=== PATIENT | male | born 1965 | race African-American/Black ===

== ENCOUNTER 2023-04-28 10:19 | Emergency (ER) | payer BC ==
[2023-04-28] MEDS ORDERED: MECLIZINE HCL 12.5 MG TAB ONE (11:07)
[2023-04-28] MEDS ORDERED: NA CHLORIDE 0.9% 1,000 ML ONE (11:30)
[2023-04-28 11:40] LABS: Absolute Lymphocytes (CBC) 1.5 K/uL (0.7-4.9); Hematocrit 38.8 % (39.6-49.0); Lymphocytes % 20.8 % (15.3-44.8); MCV 82.6 fL (80-100); MPV 11.2 fL (7.6-11.3); RBC Red Blood Cell Count 4.69 M/uL (4.33-5.43)
[2023-04-28 11:52] LABS: Protime INR 0.94
--- NOTE | 2023-04-28 11:52 | RAD REPORT ---
EXAM DESCRIPTION: RAD - Chest Single View - 04/28/2023 11:18 am CLINICAL HISTORY: lightheadedness COMPARISON: CHEST SINGLE VIEW dated 01/23/2011; CHEST SINGLE VIEW dated 10/03/2010; CHEST SINGLE VIEW d ated 01/01/2010 FINDINGS: Lines: None. Lungs: No evidence of edema or pneumonia. Pleural: No significant pleural effusions or pneumothorax. Cardiac: The heart size is within normal limits. Mediastinum: Within normal limits. Bones: No acute fractures. Other: None IMPRESSION: No acute cardiopulmonary disease.
[2023-04-28 11:57] LABS: Specific Gravity 1.023 (1.005-1.030); Urine Bacteria None Seen /HPF (<20); Urine Bilirubin NEGATIVE (Negative); Urine Blood Negative (Negative); Urine Clarity Clear (Clear); Urine Color Light-Yellow (Yellow); Urine Glucose 4+ (Over) (Negative); Urine Mucus Slight /HPF (None Seen); Urine Protein 1+ (Negative); Urine RBC <5 /HPF (None Seen); Urine Urobilinogen Normal (Normal); Urine pH 5.5 (5.0-7.0)
[2023-04-28 12:02] LABS: ALT/SGPT 35 U/L (16-61); AST/SGOT 15 U/L (15-37); Albumin 3.3 g/dL (3.4-5.0); Alkaline Phosphatase 72 U/L (45-117); BUN Blood Urea Nitrogen 26 mg/dL (7-18); Bicarbonate 27 mEq/L (21-32); Bilirubin Total 0.3 mg/dL (0.2-1.0); Glomerular Filtration Rate 48 ml/min (=/>90); Glucose Level 332 mg/dL (74-106); Magnesium 2.2 mg/dL (1.6-2.4); Potassium 4.4 mEq/L (3.5-5.1); Protein, Total 7.4 g/dL (6.4-8.2); Sodium Level 133 mEq/L (136-145); Troponin High Sensitivity 8.4 pg/mL (<58.9)
[2023-04-28 12:10] LABS: Bilirubin Direct < 0.1 mg/dL (0-0.2); Bilirubin Indirect, Calculated ND mg/dL (0.2-0.8)
--- NOTE | 2023-04-28 12:51 | ER ---
Nurse's Notes [facility] Name: Valeriano Lawrence Age: 58 yrs Sex: Male : 1965 Arrival Date: 04/28/2023 Time: 10:19 Bed 16 Private MD: Diagnosis: Dizziness and giddiness Presentation: 04/28 10:41 Chief complaint: Dizziness upon standing at 1730 yesterday, has been constant. hb Coronavirus screen: At this time, the client does not indicate any symptoms associated with coronavirus-19. Ebola Screen: No symptoms or risks identified at this time. Initial Sepsis Screen: Does the patient meet any 2 criteria? No. Patient's initial sepsis screen is negative. Does the patient have a suspected source of infection? No. Patient's initial sepsis screen is negative. Risk Assessment: Do you want to hurt yourself or someone else? Patient reports no desire to harm self or others. Onset of symptoms was April 27, 2023 at 17:30. 10:41 Method Of Arrival: Ambulatory hb 10:41 Acuity: MEGAN 3 hb Historical: - Allergies: 10:41 No Known Allergies; hb - Home Meds: 10:41 imatinib oral [Active]; atorvastatin oral [Active]; valsartan oral [Active]; amlodipine hb oral [Active]; Synjardy oral [Active]; Mounjaro subcutaneous [Active]; pantoprazole oral [Active]; - PMHx: 10:41 Diabetes - NIDDM; Hypertension; Cancer - abdomen, removed; hb - Immunization history:: Adult Immunizations up to date. - Social history:: Smoking status: Patient reports use of chewing tobacco. Screenin:17 [facility] ED Fall Risk Assessment (Adult) History of falling in the last 3 months, nj1 including since admission No falls in past 3 months (0 pts) Confusion or Disorientation No (0 pts) Intoxicated or Sedated No (0 pts) Impaired Gait No (0 pts) Mobility Assist Device Used No (0 pt) Altered Elimination No (0 pt) Score/Fall Risk Level 0 - 2 = Low Risk Oriented to surroundings, Maintained a safe environment, Hourly rounding (assess needs \T\ fall precautionary measures) done. Abuse screen: Denies threats or abuse. Denies injuries from another. Nutritional screening: No deficits noted. Tuberculosis screening: No symptoms or risk factors identified. Assessment: 11:00 General: Appears in no apparent distress. comfortable, Behavior is calm, cooperative, nj1 appropriate for age. Neuro: Level of Consciousness is awake, alert, obeys commands, Oriented to person, place, time, situation, Reports dizziness, since yesterday. Cardiovascular: Patient's skin is warm and dry. Respiratory: Airway is patent Respiratory effort is even, unlabored. 11:00 Pain: Denies pain. nj1 12:17 Reassessment: Patient appears in no apparent distress at this time. Patient and/or nj1 family updated on plan of care and expected duration. Pain level reassessed. Patient is alert, oriented x 3, equal unlabored respirations, skin warm/dry/pink. Pt denies dizziness while laying in the stretcher to which he had said he had during primary assessment. Vital Signs: 10:41 BP 154 / 94; Pulse 82; Resp 16; Temp 98.3(O); Pulse Ox 100% on R/A; Weight 92.53 kg; hb Height 5 ft. 10 in. ; Pain 0/10; 11:02 BP 151 / 87 Supine; Pulse 75; nj1 11:02 BP 132 / 97 Sitting; Pulse 84; nj1 11:02 BP 138 / 97 Standing; Pulse 95; nj1 12:12 BP 162 / 103; Pulse 80; Resp 14; Pulse Ox 99% on R/A; Pain 0/10; nj1 13:00 BP 164 / 109; Pulse 81; Resp 15; Pulse Ox 100% on R/A; Pain 0/10; nj1 10:41 Body Mass Index 29.27 (92.53 kg, 177.8 cm) hb 10:41 Pain Scale: Adult hb 12:12 Pain Scale: Adult nj1 13:00 Pain Scale: Adult nj1 ED Course: 10:21 Patient arrived in ED. ts1 10:22 Janet Johnson FNP-C is PHCP. kb 10:22 Akin Montano DO is Attending Physician. kb 10:41 Triage completed. hb 10:45 Arm band placed on. hb 10:54 Henrietta Youssef, EFRA is Primary Nurse. nj1 11:00 Patient has correct armband on for positive identification. Bed in low position. Call [facility] light in reach. Adult w/ patient. Provided Education on: fall precautions. 11:20 Chest Single View XRAY In Process Unspecified. EDMS 11:29 Inserted saline lock: 20 gauge in left antecubital area, using aseptic technique. Blood nj1 collected. 13:07 No provider procedures requiring assistance completed. IV discontinued, intact, nj1 bleeding controlled. Administered Medications: 11:12 Drug: Meclizine PO 25 mg Route: PO; nj1 11:43 Follow up: Response: No adverse reaction nj1 11:29 Drug: NS 0.9% IV 1000 ml Route: IV; Rate: 1000 ml; Site: left antecubital; nj1 12:30 Follow up: Response: No adverse reaction; IV Status: Completed infusion; IV Intake: nj1 1000ml Medication: 13:00 VIS not applicable for this client. nj1 Intake: 12:30 IV: 1000ml; Total: 1000ml. nj1 Outcome: 12:51 Discharge ordered by . hitesh 13:00 Discharged to home ambulatory, with significant other. nj1 13:00 Condition: stable 13:00 Discharge instructions given to patient, Instructed on discharge instructions, follow up and referral plans. Demonstrated understanding of instructions, follow-up care. 13:08 Patient left the ED. nj1 Signatures: Dispatcher [employer] EDMS Janet Johnson, ENTRY LEVEL SALES CONSULTANT-C ENTRY LEVEL SALES CONSULTANT-Ckb Heidy Rowell RN RN Henrietta Youssef RN RN nj1 Aide [place] PAS PAS ts1 Corrections: (The following items were deleted from the chart) 10:49 10:41 92.53 kg; Height 5 ft. 10 in.; BMI: 29.2; Pain 0/10, Adult; hb hb 12:17 12:12 BP 162 / 103; Pulse 80bpm; Resp 14bpm; Pulse Ox 99% RA; nj1 nj1 12:18 12:17 Reassessment: Patient appears in no apparent distress at this time. Patient nj1 and/or family updated on plan of care and expected duration. Pain level reassessed. Patient is alert, oriented x 3, equal unlabored respirations, skin warm/dry/pink. nj1
--- NOTE | 2023-04-28 12:52 | EDPHYS ---
Physician Documentation [facility] Name: Valeriano Lawrence Age: 58 yrs Sex: Male : 1965 Arrival Date: 04/28/2023 Time: 10:19 Bed 16 Private MD: ED Physician Akin Montano HPI: 04/28 12:53 This 58 yrs old Black Male presents to ER via Ambulatory with complaints of Dizziness. kb 12:53 The patient presents with dizziness, lightheadedness. Onset: The symptoms/episode kb began/occurred yesterday, at 17:30. Context: occurred at home, occurred while the patient was changing positions from sitting to standing. Modifying factors: The symptoms are alleviated by nothing, the symptoms are aggravated by nothing. Associated signs and symptoms: The patient has no apparent associated signs or symptoms. Severity of symptoms: At their worst the symptoms were mild moderate in the emergency department the symptoms are unchanged. Patient's baseline: Neuro: alert and fully oriented, Motor: no deficits, Ambulation: walks without assistance, Speech: normal. The patient has not experienced similar symptoms in the past. The patient has not recently seen a physician. Pt reports he got up from a sitting position yesterday around 1730 and had some dizziness. Reports dizziness upon standing has continued to now so he wanted to get checked out. 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 Historical: - Allergies: 10:41 No Known Allergies; hb - Home Meds: 10:41 imatinib oral [Active]; atorvastatin oral [Active]; valsartan oral [Active]; amlodipine hb oral [Active]; Synjardy oral [Active]; Mounjaro subcutaneous [Active]; pantoprazole oral [Active]; - PMHx: 10:41 Diabetes - NIDDM; Hypertension; Cancer - abdomen, removed; hb - Immunization history:: Adult Immunizations up to date. - Social history:: Smoking status: Patient reports use of chewing tobacco. ROS: 12:52 Constitutional: Negative for fever, chills, and weight loss. kb 12:52 Neuro: Positive for dizziness. 12:52 All other systems are negative. Exam: 11:14 Constitutional: This is a well developed, well nourished patient who is awake, alert, kb and in no acute distress. Head/Face: Normocephalic, atraumatic. Eyes: Pupils equal round and reactive to light, extra-ocular motions intact. Lids and lashes normal. Conjunctiva and sclera are non-icteric and not injected. Cornea within normal limits. Periorbital areas with no swelling, redness, or edema. ENT: Moist Mucous membranes Cardiovascular: Regular rate and rhythm with a normal S1 and S2. No gallops, murmurs, or rubs. No pulse deficits. Respiratory: Respirations even and unlabored. No increased work of breathing. Talking in full sentences Abdomen/GI: Soft, non-tender. No distention Skin: Warm, dry with normal turgor. Normal color. MS/ Extremity: Pulses equal, no cyanosis. Neurovascular intact. Full, normal range of motion. Neuro: Awake and alert, GCS 15, oriented to person, place, time, and situation. Moves all extremities. Normal gait. 11:14 ECG was reviewed by the Attending Physician. Vital Signs: 10:41 BP 154 / 94; Pulse 82; Resp 16; Temp 98.3(O); Pulse Ox 100% on R/A; Weight 92.53 kg; hb Height 5 ft. 10 in. ; Pain 0/10; 11:02 BP 151 / 87 Supine; Pulse 75; nj1 11:02 BP 132 / 97 Sitting; Pulse 84; nj1 11:02 BP 138 / 97 Standing; Pulse 95; nj1 12:12 BP 162 / 103; Pulse 80; Resp 14; Pulse Ox 99% on R/A; Pain 0/10; nj1 13:00 BP 164 / 109; Pulse 81; Resp 15; Pulse Ox 100% on R/A; Pain 0/10; nj1 10:41 Body Mass Index 29.27 (92.53 kg, 177.8 cm) hb 10:41 Pain Scale: Adult hb 12:12 Pain Scale: Adult nj1 13:00 Pain Scale: Adult nj1 MDM: 10:22 Patient medically screened. kb 12:52 Differential diagnosis: cardiac arrhythmia, generalized weakness, hypovolemia, kb idiopathic dizziness, near-syncope, vertigo. Data reviewed: vital signs, nurses notes. Test considered but Not performed: CT: CT head considered, but pt has no neuro deficits. Care significantly affected by the following chronic conditions: Diabetes, Hypertension. Counseling: I had a detailed discussion with the patient and/or guardian regarding: the historical points, exam findings, and any diagnostic results supporting the discharge/admit diagnosis, lab results, radiology results, the need for outpatient follow up, a family practitioner, to return to the emergency department if symptoms worsen or persist or if there are any questions or concerns that arise at home. 04/28 10:28 Order name: Basic Metabolic Panel; Complete Time: 12:14 kb 04/28 10:28 Order name: CBC with Diff; Complete Time: 12:00 kb 04/28 10:28 Order name: Hepatic Function; Complete Time: 12:14 kb 04/28 10:28 Order name: Magnesium; Complete Time: 12:14 kb 04/28 10:28 Order name: Protime (+inr); Complete Time: 12:00 kb 04/28 10:28 Order name: Ptt, Activated; Complete Time: 12:00 kb 04/28 10:28 Order name: Troponin High Sensitivity; Complete Time: 12:14 kb 04/28 10:28 Order name: Urinalysis w/ reflexes; Complete Time: 12:00 kb 04/28 10:28 Order name: Chest Single View XRAY; Complete Time: 12:00 kb 04/28 10:28 Order name: EKG; Complete Time: 10:29 kb 04/28 10:28 Order name: Cardiac monitoring; Complete Time: 11:15 kb 04/28 10:28 Order name: EKG - Nurse/Tech; Complete Time: 11:15 kb 04/28 10:28 Order name: IV Saline Lock; Complete Time: 11:43 kb 04/28 10:28 Order name: Labs collected and sent; Complete Time: 11:43 kb 04/28 10:28 Order name: NPO; Complete Time: 11:15 kb 04/28 10:28 Order name: O2 Per Protocol; Complete Time: 11:15 kb 04/28 10:28 Order name: O2 Sat Monitoring; Complete Time: 11:15 kb 04/28 10:28 Order name: Orthostatics; Complete Time: 11:15 kb EC:14 Rate is 74 beats/min. Rhythm is regular. QRS [place] is Normal. NE interval is normal at kb 140 msec. QRS interval is normal at 88 msec. QT interval is normal at 441 msec. Administered Medications: 11:12 Drug: Meclizine PO 25 mg Route: PO; nj1 11:43 Follow up: Response: No adverse reaction nj1 11:29 Drug: NS 0.9% IV 1000 ml Route: IV; Rate: 1000 ml; Site: left antecubital; nj1 12:30 Follow up: Response: No adverse reaction; IV Status: Completed infusion; IV Intake: nj1 1000ml Disposition: 13:39 Co-signature as Attending Physician, Akin Montano DO I was immediately available on-site ms3 in the Emergency Department for consultation in the care of the patient. Disposition Summary: 04/28/23 12:51 Discharge Ordered Location: Home kb Condition: Stable kb Diagnosis - Dizziness and giddiness kb Followup: kb - With: Emergency Department - When: As needed - Reason: Worsening of condition Followup: kb - With: Private Physician - When: 2 - 3 days - Reason: Recheck today's complaints, Continuance of care, Re-evaluation by your physician Discharge Instructions: - Discharge Summary Sheet kb - Dehydration, Adult, [id number] kb - Dizziness, [id number] kb Forms: - Medication Reconciliation Form kb - Thank You Letter kb - Antibiotic Education kb - Prescription Opioid Use kb - Patient Portal Instructions kb Signatures: Dispatcher [employer] Janet Hooker, CORE MEASURES ABSTRACTOR-C CORE MEASURES ABSTRACTOR-[place] Heidy Rowell, RN EFRA Akin Montano DO DO ms3 Henrietta Youssef, RN RN nj1
[2023-04-28 13:18] VITALS: TEMP 98.3
[2023-04-28 13:35] VITALS: BP 164/109; O2SAT 100
--- NOTE | 2023-04-29 18:53 | EKG ---
Test Date: 2023-04-28 Test Time: 11:09:41 [employer]: ADRYAN MEASUREMENT RESULTS: Intervals: Rate: 74 MD: 140 QRSD: 88 QT: 398 QTc: 441 [place]: P: 65 MD: 140 QRS: 43 T: 15 INTERPRETIVE STATEMENTS: Normal sinus rhythm Normal ECG Compared to ECG 06/26/2011 13:01:11 Sinus bradycardia no longer present Ventricular premature complex(es) no longer present Left ventricular hypertrophy no longer present Electronically Signed On 04-29-23 18:48:47 CDT by Claudy Perez
== END 2023-04-28 13:08 | disposition home or self-care (01) ==
LOC: ER 10:19
DX: R42 Dizziness and giddiness (principal); E11.9 Type 2 diabetes mellitus without complications; I10 Essential (primary) hypertension; F17.220 Nicotine dependence, chewing tobacco, uncomplicated
CPT/HCPCS: 93005; 85025; 81001; 80048; 36415; 83735; 85610; 80076; 85730; 84484; 71045; J8597; J7030; 96360; 99284

== ENCOUNTER 2023-05-03 15:54 | Inpatient (IN) | payer BC ==
--- OUTSIDE RECORDS SUMMARY | 2023-05-03 16:04 | XMS REPORT | Continuity of Care Document ---
:1965 Author Organization [facility] t Address [address] [facility]. [address] [place] [address] Care Team Providers Name Role Phone PCP, PATIENT DOES NOT HAVE A Primary Care Physician UnavailSHARONDA June Attending Clinician Unavailable Nurse, [facility] Attending Clinician Unavailable Sharonda Knowles MD Attending Clinician UNKNOWN, ATTENDING Attending Clinician Unavailable Doctor Unassigned, [place] Attending Clinician Unavailable Mesha Batista Attending Clinician MESHA PICKETT Attending Clinician Unavailable Unknown, Attending Attending Clinician Unavailable DIMAS HUYNH Attending Clinician Unavailable Dimas Huynh PA-C Attending Clinician Kerry Woods Attending Clinician Genie Arita Attending Clinician GENIE MARIE Attending Clinician Unavailable Sheeba Vail Attending Clinician SHEEBA VAIL Attending Clinician Unavailable Everton Ott V Attending Clinician Unavailable Jn Sharpe Attending Clinician Unavailable Anuradha Elder Attending Clinician SHEEBA VAIL Admitting Clinician Unavailable Sheeba Vail Admitting Clinician Jn Sharpe Admitting Clinician Unavailable Payers Payer Name Policy Type Policy Number Effective Date Expiration Date S jama [employer] [place] - [id number] 2022 00:00:00 OUT OF STATE Problems Condition Condition Condition Status Onset Resolution Last Treating Co mments Source Name Details Category Date Date Treatment Clinician Date UNK UNK Diagnosis Active 2019-092020-09-26 Mem oria Active 11-15 08:20:00 l 09/14/2020 00:00: Daljit adamson 00 [facility] C49.A2 C49.A2 Diagnosis Active 2019-092020-09-29 Me moria Active 11-15 06:34:00 l 09/14/2020 00:00: Daljit adamson 00 [facility] 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 Active Problem 01/31/2022 [facility] No known No known Disease Unive rs active active ity of problems problems [facility] [place] Degenerati Degenerat Problem Active 2020-10-09 Memoria on of ion of 00:27:29 l cervical cervical Daljit n interverte interverte bral disc bral disc (disorder) (disorder) [facility] Diabetes Diabetes Problem Active 2020-10-09 Memoria mellitus mellitus 00:27:29 l (disorder) (disorder) He rmann Active Problem [facility]09[facility]2020 [facility] Hyperlipid Hyperlipi Problem Active 2020-10-09 Memoria emia demia 00:27:29 l (disorder) (disorder) He rmann Active Problem [facility]/09/2020 [facility] Hypertensi Hypertens Problem Active 2020-10-09 Memoria ve demario 00:27:29 l disorder, disorder, Herm sriram systemic systemic arterial arterial (disorder) (disorder) Active [facility]09[facility] Obesity Obesity Problem Active 2020-10-09 M emoria (disorder) (disorder) 00:27:29 l Active [place] Problem [facility]/09/2020 [facility] Shoulder Shoulder Problem Active 2020-10-09 Memoria pain pain 00:27:29 l (finding) (finding) Herm sriram Active Problem 10/09/2020 Medical [facility] Sinusitis Sinusitis Problem Active 2020-10-09 Memoria (disorder) (disorder) 00:27:29 l Active [place] Problem 10/09/2020 [facility] Malignant Malignant Problem Active 2020-10-09 Memoria neoplastic neoplastic 00:27:29 l disease disease [place] (disorder) (disorder) Active Problem 10/09/2020 stomach [facility] prison prison Problem Active 2022-01-31 Memoria current current 04:10:01 l use of use of [place] insulin insulin Active Problem 01/31/2022 [facility] Essential Essential Diagnosis Active 2022-01-31 Memoria (primary) (primary) 04:10:01 l hypertensi hypertensi He rmann on on Active Diagnosis 01/31/2022 [facility] Type 2 Type 2 Problem Active 2022-01-31 Mem oria diabetes diabetes 04:10:01 l mellitus mellitus Daljit n with with hyperglyce hyperglyce escobar escobar Active Problem 01/31/2022 [facility] Vitamin B Vitamin B Problem Active 2022-01-31 Memoria 12 12 04:10:01 l deficiency deficiency He rmann Active Problem 01/31/2022 [facility] Iron Iron Problem Active 2022-01-31 Memor ia deficiency deficiency 04:10:01 l anemia, anemia, Mukund unspecifie unspecifie d iron d iron deficiency deficiency anemia anemia type type Active Problem 01/31/2022 [facility] Erectile Erectile Problem Active 2022-01-31 Memoria dysfunctio dysfunctio 04:10:01 l n, n, [place] unspecifie unspecifie d erectile d erectile dysfunctio dysfunctio n type n type Active Problem 01/31/2022 [facility] Mixed Mixed Problem Active 2022-01-31 Ketan estee hyperlipid hyperlipid 04:10:01 l emia emia [place] Active Problem 01/31/2022 [facility] Screening Screening Problem Active 2022-01-31 Memoria for colon for colon 04:10:01 l cancer cancer [place] Active Problem 01/31/2022 [facility] Screening Screening Problem Active 2022-01-31 Memoria for for 04:10:01 l prostate prostate Daljit n cancer cancer Active Problem 01/31/2022 [facility] Encounter Encounter Diagnosis Active 2020-12-11 Memoria for for 05:10:25 l screening screening Herm sriram for other for other disorder disorder Active Diagnosis 12/11/2020 [facility] Gastric Gastric Diagnosis Active 2020-03-29 Memoria mass mass 04:10:34 l Active [place] Diagnosis 03/29/2020 [facility] COVID-19 COVID-19 Diagnosis Active 2020-03-29 Memoria Active 04:10:34 l Diagnosis Mukund 03/29/2020 [facility] Gastrointe Diagnosis Active 2020-02-24 Memoria stinal Gastrointe 04:10:41 l hemorrhage stinal Daljit n , hemorrhage unspecifie , d unspecifie gastrointe d stinal gastrointe hemorrhage stinal type hemorrhage type Active Diagnosis 02/24/2020 [facility] Need for Need for Diagnosis Active 2020-12-11 Memoria hepatitis hepatitis 05:10:25 l C C [place] screening screening test test Active Diagnosis 12/11/2020 [facility] COVID-19 COVID-19 Diagnosis Active 2020-12-11 Memoria vaccine vaccine 05:10:25 l administer administer He rmann ed ed Active Diagnosis 12/11/2020 [facility] GASTROINTE GASTROINT Diagnosis Active 2020-09-29 Memoria STINAL ESTINAL 06:34:00 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 N.K.D.A. Active Info Not Ketan estee Available 2-21 l 00:00: Mukund 00 No Known DA Active U 2020-0 [facility] Allergie 6-23 Clear s 00:00: [place] 00 [facility] No Known DA Active U 2020-0 [facility] Allergie 6- Clear s 00:00: [place] 00 [facility] No Known DA Active U 2020-0 [facility] Allergie - Clear s 00:00: [place] 00 [facility] No Known DA Active U 2020-0 [facility] Allergie 02-24 Clear s 00:00: [place] 00 [facility] NO KNOWN Drug Active Univers ALLERGIE Class ity of S [facility] No Known No Known Active Memori a Medicati Medicati l on on [place] Allergie Allergie s s Social History Social Habit Start Date Stop Date Quantity Comments Source Gender identity [facility] Sexual orientation Univer sity [facility] History of tobacco Cigar Smoker Univ ersity of use [facility] History of Social 2023-04-28 2023-04-28 Univers ity of function 00:00:00 00:00:00 [facility] [place] Exposure to 2022-09-22 2022-10-02 Not sure University SARS-CoV-2 (event) 00:00:00 17:43:00 [facility] [place] Tobacco use and 2022-10-02 2022-10-02 Former smokeless Uni versity of exposure 00:00:00 00:00:00 tobacco user [facility] Social History 2020-09-26 2020-09-26 [facility] Edd lester 15:55:34 15:55:34 Sex [birth year] Univers y of 00:00:00 00:00:00 [facility] [place] Smoking Status Start Date Stop Date Source Unknown if ever smoked [facility] Occasional tobacco smoker 2022-10-02 00:00:00 Un iversity [facility] Medications Ordered Filled Start Stop Current Ordering Indication Dosage Frequency Signature Comments Components Source Medication Medication Date Date Medication? Clinician (SIG) Name Name metFORMIN Yes 500mg Take 500 Uni vers 500 mg 1-03 mg by ity of tablet 18:17: mouth in [address] Medical morning Branch and 500 mg in the evening. Take with meals. metFORMIN Yes 500mg Take 500 Uni vers 500 mg 1-03 mg by ity of tablet 18:17: mouth in [address] Medical morning Branch and 500 mg in the evening. Take with meals. metFORMIN 2023-0 Yes 500mg Take 500 Uni vers 500 mg 1-03 mg by ity of tablet 18:17: mouth in [place] [address] the Medical morning Branch and 500 mg in the evening. Take with meals. metFORMIN 2023-0 Yes 500mg Take 500 Uni vers 500 mg 1-03 mg by ity of tablet 18:17: mouth in [place] [address] the [facility] morning Branch and 500 mg in the evening. Take with meals. metFORMIN 2023-0 Yes 500mg Take 500 Uni vers 500 mg 1-03 mg by ity of tablet 18:17: mouth in [place] [address] the Medical morning Branch and 500 mg in the evening. Take with meals. diclofenac 2023-0 Yes [id number] Apply to Univers 3 % gel 1-03 area(s) 2 ity of 00:00: (two) [place] 00 times Medical daily. Branch diclofenac 2023-0 Yes [id number] Apply to Univers 3 % gel 1-03 area(s) 2 ity of 00:00: (two) [place] 00 times Medical daily. Branch diclofenac 2023-0 Yes [id number] Apply to Univers 3 % gel 1-03 area(s) 2 ity of 00:00: (two) [place] 00 times Medical daily. Branch diclofenac 2023-0 Yes [id number] Apply to Univers 3 % gel 1-03 area(s) 2 ity of 00:00: (two) [place] 00 times Medical daily. Branch diclofenac 2023-0 Yes [id number] Apply to Univers 3 % gel 1-03 area(s) 2 ity of 00:00: (two) [place] 00 times Medical daily. Branch traMADoL 50 2022-0 2022- No [id number] 50mg Take 1 Uni vers mg tablet 10-02 tablet by ity of 00:00: 05:59 mouth [place] 00 :00 every 6 Medical (six) Branch hours as needed for Pain (scale 7-10) or Pain (scale 4-6) for up to 7 days. Indication s: acute pain traMADoL 50 2023-0 2022- No [id number] 50mg Take 1 Uni vers mg tablet 10-02 tablet by ity of 00:00: 05:59 mouth [place] 00 :00 every 6 Medical (six) Branch hours as needed for Pain (scale 7-10) or Pain (scale 4-6) for up to 7 days. Indication s: acute pain traMADoL 50 2022- No [id number] 50mg Take 1 Uni vers mg tablet 10-02 tablet by ity of 00:00: 05:59 mouth [place] 00 :00 every 6 Medical (six) Branch hours as needed for Pain (scale 7-10) or Pain (scale 4-6) for up to 7 days. Indication s: acute pain glimepiride 2021-09 Yes 4mg Take 4 mg U nivers 4 mg tablet 0-28 by mouth ity of 00:00: in the [place] 00 morning Medical and 4 mg Branch in the evening. Take with meals. glimepiride 2021-09 Yes 4mg Take 4 mg U nivers 4 mg tablet 0-28 by mouth ity of 00:00: in the [place] 00 morning Medical and 4 mg Branch in the evening. Take with meals. glimepiride 2021-09 Yes 4mg Take 4 mg U nivers 4 mg tablet 0-28 by mouth ity of 00:00: in the [place] morning Medical and 4 mg Branch in the evening. Take with meals. glimepiride 2021-09 Yes 4mg Take 4 mg U nivers 4 mg tablet 0-28 by mouth ity of 00:00: in the [place] morning Medical and 4 mg Branch in the evening. Take with meals. glimepiride 2021-09 Yes 4mg Take 4 mg U nivers 4 mg tablet 0-28 by mouth ity of 00:00: in the [place] morning Medical and 4 mg Branch in the evening. Take with meals. Metoprolol Yes KHURSHEED 1 tablet Memoria Tartrate 5-04 [place] with food l 04:10: Atorvastati Yes KHURSHEED 1 tablet Memoria n Calcium 5-04 [place] l 04:10: Atorvastati Yes KHURSHEED 1 tablet Memoria n Calcium 5-04 [place] l 04:10: Metoprolol Yes KHURSHEED 1 tablet Memoria Tartrate 5-04 [place] with food l 04:10: Metoprolol Yes KHURSHEED 1 tablet Memoria Tartrate 5-04 [place] with food l 04:10: Atorvastati Yes KHURSHEED 1 tablet Memoria n [facility] 5-04 [facility] 04:10: cefTRIAXone 2021- No [id number] 1000mg Univers (ROCEPHIN) 12-24 ity of injection 20:45: 19:54 [place] 1,000 mg 00 :00 Medical Branch cefTRIAXone 2021- No [id number] 1000mg 1,000 mg, Univers (ROCEPHIN) 12-24 Intramuscu it y of injection 20:45: 19:54 [place], ONCE, [place] 1,000 mg 00 :00 1 dose, On Medic al Sun Branch 12/24/21 at 1545, CHUCK
Re ason for Anti-Infec tive: Documented Infection< br>Documen misael Infection Site: Skin / Soft Tissue
Duration of Therapy: Other (see Comments) sulfamethox Yes 1{tbl} Take 1 Univers azole-trime 3-27 tablet by ity of thoprim 00:00: mouth 2 [place] (BACTRIM 00 (two) Medical DS) 800-160 times Branch mg per daily. tablet ibuprofen Yes [id number] 600mg Take 1 Univers 600 mg 3-27 tablet by ity of tablet 00:00: mouth [place] 00 every 6 Medical (six) Branch hours as needed for Pain (scale 4-6). sulfamethox Yes 1{tbl} Take 1 Univers azole-trime 3-27 tablet by ity of thoprim 00:00: mouth 2 [place] (BACTRIM 00 (two) Medical DS) 800-160 times Branch mg per daily. tablet ibuprofen Yes [id number] 600mg Take 1 Univers 600 mg 3-27 tablet by ity of tablet 00:00: mouth [place] 00 every 6 Medical (six) Branch hours as needed for Pain (scale 4-6). sulfamethox Yes 1{tbl} Take 1 Univers azole-trime 3-27 tablet by ity of thoprim 00:00: mouth 2 [place] (BACTRIM 00 (two) Medical DS) 800-160 times Branch mg per daily. tablet ibuprofen 2021-0 Yes [id number] 600mg Take 1 Univers 600 mg 3-27 tablet by ity of tablet 00:00: mouth [place] 00 every 6 Medical (six) Branch hours as needed for Pain (scale 4-6). sulfamethox 202-0 Yes [id number] 1{tbl} Take 1 Univers azole-trime 3-27 tablet by ity of thoprim 00:00: mouth 2 [place] (BACTRIM 00 (two) Medical DS) 800-160 times Branch mg per daily. tablet ibuprofen 2021-0 Yes [id number] 600mg Take 1 Univers 600 mg 3-27 tablet by ity of tablet 00:00: mouth [place] 00 every 6 Medical (six) Branch hours as needed for Pain (scale 4-6). sulfamethox 202-0 Yes [id number] 1{tbl} Take 1 Univers azole-trime 3-27 tablet by ity of thoprim 00:00: mouth 2 [place] (BACTRIM 00 (two) Medical DS) 800-160 times Branch mg per daily. tablet ibuprofen 2021-0 Yes [id number] 600mg Take 1 Univers 600 mg 3-27 tablet by ity of tablet 00:00: mouth [place] 00 every 6 Medical (six) Branch hours as needed for Pain (scale 4-6). sulfamethox 2021-0 Yes [id number] 1{tbl} Take 1 Univers azole-trime 3-27 tablet by ity of thoprim 00:00: mouth 2 [place] (BACTRIM 00 (two) Medical DS) 800-160 times Branch mg per daily. tablet ibuprofen 2021-0 Yes [id number] 600mg Take 1 Univers 600 mg 3-27 tablet by ity of tablet 00:00: mouth [place] 00 every 6 Medical (six) Branch hours as needed for Pain (scale 4-6). mupirocin 2 2021-0 Yes Apply to Univers % ointment 3-22 area(s) 3 ity of 00:00: (three) [place] 00 times Medical daily. Branch mupirocin 2 2021-0 Yes Apply to Univers % ointment 3-22 area(s) 3 ity of 00:00: (three) [place] 00 times Medical daily. Branch mupirocin 2 2021-0 Yes Apply to Univers % ointment 3-22 area(s) 3 ity of 00:00: (three) [place] 00 times Medical daily. Branch mupirocin 2 2021-0 Yes Apply to Univers % ointment 3-22 area(s) 3 ity of 00:00: (three) [place] 00 times Medical daily. Branch mupirocin 2 2021-0 Yes Apply to Univers % ointment 3-22 area(s) 3 ity of 00:00: (three) [place] 00 times Medical daily. Branch mupirocin 2 2021-0 Yes Apply to Univers % ointment 3-22 area(s) 3 ity of 00:00: (three) [place] 00 times Medical daily. Branch mupirocin 2 2021-0 Yes Apply to Univers % ointment 3-22 area(s) 3 ity of 00:00: (three) [place] 00 times Medical daily. Branch mupirocin 2 2021-0 Yes Apply to Univers % ointment 3-22 area(s) 3 ity of 00:00: (three) [place] 00 times Medical daily. Branch amoxicillin 2021- No [id number] 1{tbl} Take 1 Univers -clavulanat 3-22 03-30 tablet by it y of e 00:00: 04:59 mouth 2 [place] (AUGMENTIN) 00 :00 (two) Medical 875-125 mg times Branch per tablet daily for 7 days. amoxicillin 2021- No [id number] 1{tbl} Take 1 Univers -clavulanat 3-22 03-30 tablet by it y of e 00:00: 04:59 mouth 2 [place] (AUGMENTIN) 00 :00 (two) Medical 875-125 mg times Branch per tablet daily for 7 days. amoxicillin 2021- No [id number] 1{tbl} Take 1 Univers -clavulanat 3-22 03-27 tablet by it y of e 00:00: 00:00 mouth 2 [place] (AUGMENTIN) 00 :00 (two) Medical 875-125 mg times Branch per tablet daily for 7 days. Valsartan-H Yes KHURSHEED 1 tablet Memoria ydrochlorot 2-22 [place] l hiazide 05:10: Mukund 36 Vitamin Yes KHURSHEED as Memor ia B-12 - [place] directed l 05:10: Mukund 36 Jardiance Yes KHURSHEED 1 tablet Memoria - [place] l 05:10: Mukund 36 Amlodipine Yes KHURSHEED 1 tablet Memoria Besylate - [place] l 05:10: Mukund 36 Trulicity Yes KHURSHEED as Mem oria - [place] directed l 05:10: Mukund 36 Cyclobenzap Yes KHURSHEED 1 tablet Memoria rine HCl 11-21 [place] l 05:10: Mukund 36 Levemir Yes KHURSHEED 50 units M emoria Flexpen 11-21 [facility] 05:10: Mukund 36 Gleevec Yes KHURSHEED 1 tablet M emoria 11-21 [facility] 05:10: Mukund 36 Glimepiride Yes KHURSHEED 1 tablet Memoria 11-21 [place] with l 05:10: breakfast Mukund 36 or the first main meal of the day Metformin Yes KHURSHEED 1 tablet Memoria HCl 11-21 [facility] with a l 05:10: meal Mukund 36 HydrALAZINE Yes KHURSHEED 1 tablet Memoria HCl 11-21 [facility] with food l 05:10: Mukund Dill Valsartan-H Yes KHURSHEED 1 tablet Memoria ydrochlorot 11-21 [facility] hiazide 05:10: Mukund 36 Jardiance Yes KHURSHEED 1 tablet Memoria - [place] l 05:10: Mukund 36 Amlodipine Yes KHURSHEED 1 tablet Memoria Besylate - [place] l 05:10: Mukund 36 Trulicity Yes KHURSHEED as Mem oria - [place] directed l 05:10: Mukund 36 Cyclobenzap Yes KHURSHEED 1 tablet Memoria rine HCl - [place] l 05:10: Mukund 36 Levemir Yes KHURSHEED 50 units M emoria Flexpen - [place] l 05:10: Mukund 36 Vitamin Yes KHURSHEED as Memor ia B-12 11-21 [place] directed l 05:10: Mukund 36 Gleevec Yes KHURSHEED 1 tablet M emoria 11-21 [place] l 05:10: Mukund 36 HydrALAZINE Yes KHURSHEED 1 tablet Memoria HCl 11-21 [facility] with food l 05:10: Mukund 36 Glimepiride Yes KHURSHEED 1 tablet Memoria 11-21 [place] with l 05:10: breakfast Mukund Dill or the first main meal of the day Metformin Yes KHURSHEED 1 tablet Memoria HCl 11-21 [facility] with a l 05:10: meal Mukund 36 Valsartan-H Yes KHURSHEED 1 tablet Memoria ydrochlorot 11-21 [facility] l hiazide 05:10: Mukund 36 Vitamin Yes KHURSHEED as Memor ia B-12 11-21 [facility] directed l 05:10: Mukund 36 Jardiance Yes KHURSHEED 1 tablet Memoria 11-21 [facility] l 05:10: Mukund 36 Amlodipine Yes KHURSHEED 1 tablet Memoria Besylate 11-21 [facility] 05:10: Mukund 36 Trulicity Yes KHURSHEED as Mem oria 11-21 [place] directed l 05:10: Mukund 36 Cyclobenzap Yes KHURSHEED 1 tablet Memoria rine HCl 11-21 [facility] 05:10: Mukund 36 Levemir Yes KHURSHEED 50 units M emoria Flexpen 11-21 [place] l 05:10: Mukund 36 Gleevec Yes KHURSHEED 1 tablet M emoria - [place] l 05:10: Mukund 36 Glimepiride Yes KHURSHEED 1 tablet Memoria 11-21 [place] with l 05:10: breakfast Mukund Dill or the first main meal of the day Metformin 0 Yes KHURSHEED 1 tablet Memoria HCl 2-22 [place] with a l 05:10: meal Mukund HydrALAZINE 0 Yes KHURSHEED 1 tablet Memoria HCl 2-22 [place] with food l 05:10: Mukund Amlodipine 0 Yes KHURSHEED 1 tablet Memoria Besylate 1-29 [place] l 05:25: Amlodipine 0 Yes KHURSHEED 1 tablet Memoria Besylate 1-29 [place] l 05:25: Mukund Amlodipine 0 Yes KHURSHEED 1 tablet Memoria Besylate 1-29 [place] l 05:25: Mukund Amlodipine 0 Yes KHURSHEED 1 tablet Memoria Besylate -29 [place] l 05:25: Mukund HydrALAZINE 0 Yes KHURSHEED 1 tablet Memoria HCl 3-14 [place] with food l 05:10: Mukund Valsartan-H 0 Yes KHURSHEED 1 tablet Memoria ydrochlorot 3-14 [place] l hiazide 05:10: Mukund Jardiance 0 Yes KHURSHEED 1 tablet Memoria 3-14 [place] l 05:10: Mukund Amlodipine 0 Yes KHURSHEED 1 tablet Memoria Besylate 3-14 [place] l 05:10: Mukund Trulicity 0 Yes KHURSHEED as Mem oria 3-14 [place] directed l 05:10: Mukund Atorvastati 0 Yes KHURSHEED 1 tablet Memoria n Calcium 3-14 [place] l 05:10: Mukund Cyclobenzap 0 Yes KHURSHEED 1 tablet Memoria rine HCl 3-14 [place] l 05:10: Mukund Levemir 0 Yes KHURSHEED 50 units M emoria Flexpen 3-14 [place] l 05:10: Mukund Metoprolol 0 Yes KHURSHEED 1 tablet Memoria Tartrate 3-14 [place] with food l 05:10: Gleevec Yes KHURSHEED 1 tablet M emoria 3-14 [place] l 05:10: Vitamin Yes KHURSHEED as Memor ia B-12 3-14 [place] directed l 05:10: HydrALAZINE Yes KHURSHEED 1 tablet Memoria HCl 3-14 [place] with food l 05:10: Glimepiride Yes KHURSHEED 1 tablet Memoria 3-14 [place] with l 05:10: breakfast or the first main meal of the day Metformin Yes KHURSHEED 1 tablet Memoria HCl 3-14 [place] with a l 05:10: meal HydrALAZINE Yes KHURSHEED 1 tablet Memoria HCl 3-14 [place] with food l 05:10: HydrALAZINE Yes KHURSHEED 1 tablet Memoria HCl 3-14 [place] with food l 05:10: Pls bring No Pls bring Mem oria Pt's 1- Pt's l JARDIANCE & 23:00: JARDIANCE H ermann TRULICITY 00 & to Pharmacy [facility] for label to Pharmacy for label, *reminder, Drug form: MISC, Route: MISC, BID, 09/30/20 17:00:00 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, Duration: 30 day, Stop date: 10/30/20 9:00:00 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, 0 Pls bring No Pls bring Mem oria Pt's 1- Pt's l JARDIANCE & 23:00: JARDIANCE H ermann TRULICITY 00 & [facility] for label, *reminder, Drug form: MISC, Route: MISC, BID, 09/30/20 17:00:00 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, Duration: 30 day, Stop date: 10/30/20 9:00:00 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, 0 Pls bring No Pls bring Mem oria Pt's 1- Pt's l JARDIANCE & 23:00: JARDIANCE H ermann TRULICITY 00 & [facility] to Pharmacy for label, *reminder, Drug form: MISC, Route: MISC, BID, 09/30/20 17:00:00 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, Duration: 30 day, Stop date: 10/30/20 9:00:00 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, 0 Pls bring No Pls bring Mem oria Pt's 1- Pt's l JARDIANCE & 23:00: JARDIANCE H ermann TRULICITY 00 & [facility] to [facility]acy for label, *reminder, Drug form: MISC, Route: MISC, BID, 09/30/20 17:00:00 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 Acetaminoph No Notes: Do M emoria en 325 MG / 09-30 not exceed l Hydrocodone 17:24: 4gm/day of [place] Bitartrate 00 acetaminop 10 MG Oral hen. (Same Tablet as: [place] [[place] 325/10) 10/325] Acetaminoph No Notes: Ketan estee en 325 MG / 09-30 (Same as: l Hydrocodone 17:24: [place] nn Bitartrate 00 325/5) Do 5 MG Oral not exceed Tablet 4gm/day of [[place] acetaminop 5/325] hen. Acetaminoph No Notes: Do M emoria en 325 MG / 09-30 not exceed l Hydrocodone 17:24: 4gm/day of [place] Bitartrate 00 acetaminop 10 MG Oral hen. (Same Tablet as: [place] [[place] 325/10) 10/325] Acetaminoph No Notes: Ketan estee en 325 MG / 09-30 (Same as: l Hydrocodone 17:24: [place] nn Bitartrate 00 325/5) Do 5 MG Oral not exceed Tablet 4gm/day of [[place] acetaminop 5/325] hen. Acetaminoph No Notes: Do M emoria en 325 MG / 09-30 not exceed l Hydrocodone 17:24: 4gm/day of [place] Bitartrate 00 acetaminop 10 MG Oral hen. (Same Tablet as: [place]ml[place] [Eml[place] 325/10) 10/325] Acetaminoph No Notes: Ketan estee en 325 MG / 09-30 (Same as: l Hydrocodone 17:24: [place] Dayanna nn Bitartrate 00 325/5) Do 5 MG Oral not exceed Tablet 4gm/day of [[place]ml[place] acetaminop 5/325] hen. Acetaminoph No Notes: Do M emoria en 325 MG / 09-30 not exceed l Hydrocodone 17:24: 4gm/day of [place] Bitartrate 00 acetaminop 10 MG Oral hen. (Same Tablet as: Eml[place] [Emlenton 325/10) 10/325] atorvastati No Notes: Ketan estee n 1- (Same as: l 15:00: Lipitor) [place] 00 Jardiance No Jardiance Mem oria 25 mg oral 1-01 25 mg oral l tablet 15:00: tablet, 25 Dayanna nn 00 mg, Route: PO, QAM, 09/30/20 9:00:00 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, Duration: 30 day, Stop date: 10/29/20 9:00:00 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 pantoprazol No Notes: Ketan estee e 1- Tablet l 15:00: should not [place] 00 be chewed or crushed. atorvastati No Notes: Ketan estee n 1- (Same as: l 15:00: Lipitor) [place] 00 Jardiance No Jardiance Mem oria 25 mg oral 1-01 25 mg oral l tablet 15:00: tablet, 25 Dayanna nn 00 mg, Route: PO, QAM, 09/30/20 9:00:00 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, Duration: 30 day, Stop date: 10/29/20 9:00:00 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 pantoprazol No Notes: Ketan estee e 1-01 Tablet l 15:00: should not [place] 00 be chewed or crushed. atorvastati 2021-0 No Notes: Ketan estee n 1-01 (Same as: l 15:00: Lipitor) Jardiance No Jardiance Mem oria 25 mg oral 1-01 25 mg oral l tablet 15:00: tablet, 25 Dayanna nn 00 mg, Route: PO, QAM, 09/30/20 9:00:00 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, Duration: 30 day, Stop date: 10/29/20 9:00:00 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 pantoprazol No Notes: Ketan estee e 1-01 Tablet l 15:00: should not [place] 00 be chewed or crushed. atorvastati No Notes: Ketan estee n 1-01 (Same as: l 15:00: Lipitor) Jardiance No Jardiance Mem oria 25 mg oral 1-01 25 mg oral l tablet 15:00: tablet, 25 Dayanna nn 00 mg, Route: PO, QAM, 09/30/20 9:00:00 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, Duration: 30 day, Stop date: 10/29/20 9:00:00 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 pantoprazol No Notes: Ketan estee e 1-01 Tablet l 15:00: should not [place] 00 be chewed or crushed. Amlodipine No Notes: Memor ia 1- (Same as: l 03:00: Norvasc) insulin No 60 unit, Memori a detemir 09-30 Route: l 03:00: SUB-Q, [place] 00 Drug form: SOLN, Bedtime, Dosing Weight 99.091, kg, Start date: 09/29/20 21:00:00 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, Duration: 30 day, Stop date: 10/28/20 21:00:00 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 Lopressor No Notes: Memori a 1- (Same as: l 03:00: Lopressor) insulin No 60 unit, Memori a glargine 1-01 0.6 mL, l 03:00: Route: [place] 00 SUB-Q, Drug form: SOLN, Bedtime, Start date: 09/29/20 21:00:00 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, Duration: 30 day, Stop date: 10/28/20 21:00:00 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, 0 Amlodipine 2020-0 No Notes: Memor ia 1- (Same as: l 03:00: Norvasc) insulin 0 No 60 unit, Memori a detemir 1- Route: l 03:00: SUB-Q, [place] 00 Drug form: SOLN, Bedtime, Dosing Weight 99.091, kg, Start date: 09/29/20 21:00:00 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, Duration: 30 day, Stop date: 10/28/20 21:00:00 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 Lopressor 2020-0 No Notes: Memori a 1- (Same as: l 03:00: Lopressor) insulin No 60 unit, Memori a glargine 1-01 0.6 mL, l 03:00: Route: [place] 00 SUB-Q, Drug form: SOLN, Bedtime, Start date: 09/29/20 21:00:00 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, Duration: 30 day, Stop date: 10/28/20 21:00:00 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, 0 Amlodipine 2020-0 No Notes: Memor ia - (Same as: l 03:00: Norvasc) insulin No 60 unit, Memori a detemir 1- Route: l 03:00: SUB-Q, Drug form: SOLN, Bedtime, Dosing Weight 99.091, kg, Start date: 09/29/20 21:00:00 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, Duration: 30 day, Stop date: 10/28/20 21:00:00 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 Lopressor 2020-0 No Notes: Memori a 1- (Same as: l 03:00: Lopressor) insulin 0 No 60 unit, Memori a glargine 1-01 0.6 mL, l 03:00: Route: [place] 00 SUB-Q, Drug form: SOLN, Bedtime, Start date: 09/29/20 21:00:00 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, Duration: 30 day, Stop date: 10/28/20 21:00:00 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, 0 Amlodipine 2020-0 No Notes: Memor ia 1- (Same as: l 03:00: Norvasc) [place] 00 insulin 0 No 60 unit, Memori a detemir 1-01 Route: l 03:00: SUB-Q, Drug form: SOLN, Bedtime, Dosing Weight 99.091, kg, Start date: 09/29/20 21:00:00 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, Duration: 30 day, Stop date: 10/28/20 21:00:00 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 Lopressor No Notes: Memori a 1-01 (Same as: l 03:00: Lopressor) insulin No 60 unit, Memori a glargine 1-01 0.6 mL, l 03:00: Route: SUB-Q, Drug form: SOLN, Bedtime, Start date: 09/29/20 21:00:00 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, Duration: 30 day, Stop date: 10/28/20 21:00:00 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, 0 Hydralazine No Notes: Ketan estee Hydrochlori 1-01 (Same as: l de 25 MG 00:00: Apresoline Her riojas Oral Tablet 00 ) May interfere w/enteral feedings Take With Food. Hydralazine No Notes: Ketan estee Hydrochlori 1-01 (Same as: l de 25 MG 00:00: Apresoline Her riojas Oral Tablet 00 ) May interfere w/enteral feedings Take With Food. Hydralazine No Notes: Ketan estee Hydrochlori 1-01 (Same as: l de 25 MG 00:00: Apresoline Her riojas Oral Tablet 00 ) May interfere w/enteral feedings Take With Food. Hydralazine No Notes: Ketan estee Hydrochlori 1-01 (Same as: l de 25 MG 00:00: Apresoline Her riojas Oral Tablet 00 ) May interfere w/enteral feedings Take With Food. glimepiride 2019-09 No 4 mg, 1 Mem oria 2-31 tab, l 23:00: Route: PO, Drug form: TAB, BID, Dosing Weight 99.091, kg, Start date: 09/29/20 17:00:00 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, Duration: 30 day, Stop date: 10/29/20 9:00:00 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 Glucotrol 2019-09 No Notes: Memori a 2-31 (Same as: l 23:00: Glucotrol) [place] 00 30 min before meals. glimepiride 2019-09 No 4 mg, 1 Mem oria 2-31 tab, l 23:00: Route: PO, [place] 00 Drug form: TAB, BID, Dosing Weight 99.091, kg, Start date: 09/29/20 17:00:00 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, Duration: 30 day, Stop date: 10/29/20 9:00:00 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 Glucotrol 2019-09 No Notes: Memori a 2-31 (Same as: l 23:00: Glucotrol) [place] 00 30 min before meals. glimepiride 2019-09 No 4 mg, 1 Mem oria 2-31 tab, l 23:00: Route: PO, [place] 00 Drug form: TAB, BID, Dosing Weight 99.091, kg, Start date: 09/29/20 17:00:00 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, Duration: 30 day, Stop date: 10/29/20 9:00:00 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 Glucotrol 2019-09 No Notes: Memori a 2-31 (Same as: l 23:00: Glucotrol) [place] 00 30 min before meals. glimepiride 2019-09 No 4 mg, 1 Mem oria 2-31 tab, l 23:00: Route: PO, [place] 00 Drug form: TAB, BID, Dosing Weight 99.091, kg, Start date: 09/29/20 17:00:00 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, Duration: 30 day, Stop date: 10/29/20 9:00:00 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 Glucotrol 2019-09 No Notes: Memori a 2-31 (Same as: l 23:00: Glucotrol) [place] 00 30 min before meals. Trulicity 2019-09 No Trulicity Mem oria Pen 1.5 2-31 Pen 1.5 l mg/0.5 mL 21:00: mg/0.5 mL Her riojas subcutaneou 00 subcutaneo s solution us solution, 1.5 mg, Route: SUB-Q, qWeek, 09/29/20 15:00:00 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, Duration: 30 day, Stop date: 10/27/20 9:00:00 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 Trulicity 2019- No Trulicity Mem oria Pen 1.5 2-31 Pen 1.5 l mg/0.5 mL 21:00: mg/0.5 mL Her riojas subcutaneou 00 subcutaneo s solution us solution, 1.5 mg, Route: SUB-Q, qWeek, 09/29/20 15:00:00 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, Duration: 30 day, Stop date: 10/27/20 9:00:00 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 Trulicity 2019-1 No Trulicity Mem oria Pen 1.5 2-31 Pen 1.5 l mg/0.5 mL 21:00: mg/0.5 mL Her riojas subcutaneou 00 subcutaneo s solution us solution, 1.5 mg, Route: SUB-Q, qWeek, 09/29/20 15:00:00 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, Duration: 30 day, Stop date: 10/27/20 9:00:00 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 Trulicity 2019- No Trulicity Mem oria Pen 1.5 2-31 Pen 1.5 l mg/0.5 mL 21:00: mg/0.5 mL Her riojas subcutaneou 00 subcutaneo s solution us solution, 1.5 mg, Route: SUB-Q, qWeek, 09/29/20 15:00:00 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, Duration: 30 day, Stop date: 10/27/20 9:00:00 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 Dextrose 2019- No 12.5 gm, Memor ia 50% Syringe 2-31 25 mL, l (D50W) 20:12: Route: IVP, Drug Form: INJ, Dosing Weight 99.091, kg, PRN, PRN Blood Glucose Results, Start date: 09/29/20 14:12:00 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, Duration: 30 day, Stop date: 10/29/20 14:11:00 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, 0 Glucagon 2019- No 1 mg, Memoria 2-31 Route: IM, l 20:12: Drug form: PDR/INJ, PRN, Dosing Weight 99.091, kg, PRN Blood Glucose Results, Start date: 09/29/20 14:12:00 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, Duration: 30 day, Stop date: 10/29/20 14:11:00 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, 0 Insulin 2019-1 No Notes: Memoria Lispro 2-31 (Same as: l 20:12: Humalog) Roll in palms of hands gently; Do not shake vigorously . Stable for 28 days at room temperatur e. Dextrose 2020- No 12.5 gm, Memor ia 50% Syringe 2-31 25 mL, l (D50W) 20:12: Route: [place] 00 IVP, Drug Form: INJ, Dosing Weight 99.091, kg, PRN, PRN Blood Glucose Results, Start date: 09/29/20 14:12:00 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, Duration: 30 day, Stop date: 10/29/20 14:11:00 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, 0 Glucagon 2020-1 No 1 mg, Memoria 2-31 Route: IM, l 20:12: Drug form: [place] 00 PDR/INJ, PRN, Dosing Weight 99.091, kg, PRN Blood Glucose Results, Start date: 09/29/20 14:12:00 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, Duration: 30 day, Stop date: 10/29/20 14:11:00 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, 0 Insulin 2020-1 No Notes: Memoria Lispro 2-31 (Same as: l 20:12: Humalog) [place] 00 Roll in palms of hands gently; Do not shake vigorously . Stable for 28 days at room temperatur e. Dextrose 2020- No 12.5 gm, Memor ia 50% Syringe 2-31 25 mL, l (D50W) 20:12: Route: [place] 00 IVP, Drug Form: INJ, Dosing Weight 99.091, kg, PRN, PRN Blood Glucose Results, Start date: 09/29/20 14:12:00 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, Duration: 30 day, Stop date: 10/29/20 14:11:00 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, 0 Glucagon 2020-1 No 1 mg, Memoria 2-31 Route: IM, l 20:12: Drug form: [place] 00 PDR/INJ, PRN, Dosing Weight 99.091, kg, PRN Blood Glucose Results, Start date: 09/29/20 14:12:00 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, Duration: 30 day, Stop date: 10/29/20 14:11:00 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, 0 Insulin 2020-1 No Notes: Memoria Lispro 2-31 (Same as: l 20:12: Humalog) [place] 00 Roll in palms of hands gently; Do not shake vigorously . Stable for 28 days at room temperatur e. Dextrose 2020- No 12.5 gm, Memor ia 50% Syringe 2-31 25 mL, l (D50W) 20:12: Route: [place] 00 IVP, Drug Form: INJ, Dosing Weight 99.091, kg, PRN, PRN Blood Glucose Results, Start date: 09/29/20 14:12:00 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, Duration: 30 day, Stop date: 10/29/20 14:11:00 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, 0 Glucagon 2019-09 No 1 mg, Memoria 2-31 Route: IM, l 20:12: Drug form: [place] 00 PDR/INJ, PRN, Dosing Weight 99.091, kg, PRN Blood Glucose Results, Start date: 09/29/20 14:12:00 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, Duration: 30 day, Stop date: 10/29/20 14:11:00 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, 0 Insulin 2019-09 No Notes: Memoria Lispro 2-31 (Same as: l 20:12: Humalog) Roll in palms of hands gently; Do not shake vigorously . Stable for 28 days at room temperatur e. Clonidine 2019-09 No Notes: Memori a 2-31 (Same As: l 20:09: Catapres) Clonidine 2019-09 No Notes: Memori a 2-31 (Same As: l 20:09: Catapres) Clonidine 2019-09 No Notes: Memori a 2-31 (Same As: l 20:09: Catapres) Clonidine 2019-09 No Notes: Memori a 2-31 (Same As: l 20:09: Catapres) Omnipaque 2019-09 Yes Notes: Memori a 300 2-31 (Same l 15:27: as:Omnipaq [place] ue 300). WASTE: F/P - Black; E - Municipal Trash Bin For oral use only Omnipaque 2019-09 Yes Notes: Memori a 300 2-31 (Same l 15:27: as:Omnipaq [place] ue 300). WASTE: F/P - Black; E - Municipal Trash Bin For oral use only Omnipaque 2019-09 Yes Notes: Memori a 300 2-31 (Same l 15:27: as:Omnipaq [place] ue 300). WASTE: F/P - Black; E - Municipal Trash Bin For oral use only Omnipaque 2019-09 Yes Notes: Memori a 300 2-31 (Same l 15:27: as:Omnipaq [place] 00 ue 300). WASTE: F/P - Black; E - Municipal Trash Bin For oral use only Entereg 2019-09 No Notes: Memoria 2-31 Same as: l 15:00: Entereg [place] 00 Maximum of 15 doses Alert Restricted medication Alvimopan (Entergen) order form must be completed prior to dispensing . Entereg 2019-09 No Notes: Memoria 2-31 Same as: l 15:00: Entereg [place] 00 Maximum of 15 doses Alert Restricted medication Alvimopan (Entergen) order form must be completed prior to dispensing . Entereg 2019-09 No Notes: Memoria 2-31 Same as: l 15:00: Entereg [place] 00 Maximum of 15 doses Alert Restricted medication Alvimopan (Entergen) order form must be completed prior to dispensing . Entereg 2019-09 No Notes: Memoria 2-31 Same as: l 15:00: Entereg [place] 00 Maximum of 15 doses Alert Restricted medication Alvimopan (Entergen) order form must be completed prior to dispensing . Enoxaparin 2019-09 No Notes: Memor ia 2-31 (Same as: l 06:13: Lovenox) [place] 00 Enoxaparin 2019-09 No Notes: Memor ia 2-31 (Same as: l 06:13: Lovenox) [place] 00 Enoxaparin 2019-09 No Notes: Memor ia 2-31 (Same as: l 06:13: Lovenox) [place] Enoxaparin 2019-09 No Notes: Memor ia 2-31 (Same as: l 06:13: Lovenox) [place] Ofirmev 2019-09 No Notes: Max Ketan estee 2-31 acetaminop l 06:00: hen 4000 [place] 00 mg/day (4 gm/day). (Same as: Tylenol Extra Strength) Ofirmev 2019-09 No Notes: Max Ketan estee 2-31 acetaminop l 06:00: hen 4000 [place] 00 mg/day (4 gm/day). (Same as: Tylenol Extra Strength) Ofirmev 2019-09 No Notes: Max Ketan estee 2-31 acetaminop l 06:00: hen 4000 [place] 00 mg/day (4 gm/day). (Same as: Tylenol Extra Strength) Ofirmev 2019-09 No Notes: Max Ketan estee 2-31 acetaminop l 06:00: hen 4000 [place] 00 mg/day (4 gm/day). (Same as: Tylenol Extra Strength) Ofirmev 2019-09 No Notes: Memoria 2-31 Infuse l 00:00: over 15 [place] 00 minutes Do not exceed 4gm/day of acetaminop hen MEDICATION WASTE Product Size: 1000 mg Product Wasted: ___ mg Ofirmev 2019-09 No Notes: Memoria 2-31 Infuse l 00:00: over 15 [place] 00 minutes Do not exceed 4gm/day of acetaminop hen MEDICATION WASTE Product Size: 1000 mg Product Wasted: ___ mg Ofirmev 2019-09 No Notes: Memoria 2-31 Infuse l 00:00: over 15 [place] 00 minutes Do not exceed 4gm/day of acetaminop hen MEDICATION WASTE Product Size: 1000 mg Product Wasted: ___ mg Ofirmev 2019-09 No Notes: Memoria 2-31 Infuse l 00:00: over 15 [place] 00 minutes Do not exceed 4gm/day of acetaminop hen MEDICATION WASTE Product Size: 1000 mg Product Wasted: ___ mg gabapentin 2019-09 No Notes: Memor ia 2-30 (Same as: l 23:00: Neurontin) Celebrex 2019-09 No Notes: Memoria 2-30 NSAID. l 23:00: Please [place] 00 check indication . Not for seizure. (Same As: CeleBREX) gabapentin 2019-09 No Notes: Memor ia 2-30 (Same as: l 23:00: Neurontin) Celebrex 2019-09 No Notes: Memoria 2-30 NSAID. l 23:00: Please [place] 00 check indication . Not for seizure. (Same As: CeleBREX) gabapentin 2019-09 No Notes: Memor ia 2-30 (Same as: l 23:00: Neurontin) Celebrex 2019-09 No Notes: Memoria 2-30 NSAID. l 23:00: Please [place] 00 check indication . Not for seizure. (Same As: CeleBREX) gabapentin 2019-09 No Notes: Memor ia 2-30 (Same as: l 23:00: Neurontin) Celebrex 2019-09 No Notes: Memoria 2-30 NSAID. l 23:00: Please [place] 00 check indication . Not for seizure. (Same As: CeleBREX) Robaxin 2019-09 No Notes: Memoria 2-30 (Same l 21:00: as:Robaxin ) Robaxin 2019-09 No Notes: Memoria 2-30 (Same l 21:00: as:Robaxin [place] 00 ) Robaxin 2019-09 No Notes: Memoria 2-30 (Same l 21:00: as:Robaxin [place] 00 ) Robaxin 2019-09 No Notes: Memoria 2-30 (Same l 21:00: as:Robaxin ) Mefoxin 2019-09 No Notes: Memoria 2-30 (Same As: l 20:30: Mefoxin) MEDICATION WASTE Product Size: 2000 mg Product Wasted: ___ mg Mefoxin 2019-09 No Notes: Memoria 2-30 (Same As: l 20:30: Mefoxin) [place]und 00 MEDICATION WASTE Product Size: 2000 mg Product Wasted: ___ mg Mefoxin 2019-09 No Notes: Memoria 2-30 (Same As: l 20:30: Mefoxin) Mukund 00 MEDICATION WASTE Product Size: 2000 mg Product Wasted: ___ mg Mefoxin 2019-09 No Notes: Memoria 2-30 (Same As: l 20:30: Mefoxin) [place] 00 MEDICATION WASTE Product Size: 2000 mg Product Wasted: ___ mg Calcium 2019-09 No 1,000 mL, Memor ia Chloride 2-30 Rate: 50 l 0.0014 18:11: ml/hr, [place] MEQ/ML / 00 Infuse Potassium over: 20 Chloride hr, Route: 0.004 IV, Dosing MEQ/ML / Weight Sodium 99.091 kg, Chloride Total 0.103 Volume: MEQ/ML / 1,000, Sodium Start Lactate date: 0.028 12/30/20 MEQ/ML 12:11:00 Injectable 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, Solution Duration: 30 day, Stop date: 10/28/20 12:10:00 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, 2.23, m2, 0 Dilaudid 2019-09 No Notes: Memoria 2-30 Same as: l 18:11: Dilaudid Mukund Calcium 2019-09 No 1,000 mL, Memor ia Chloride 2-30 Rate: 50 l 0.0014 18:11: ml/hr, [place] MEQ/ML / 00 Infuse Potassium over: 20 Chloride hr, Route: 0.004 IV, Dosing MEQ/ML / Weight Sodium 99.091 kg, Chloride Total 0.103 Volume: MEQ/ML / 1,000, Sodium Start Lactate date: 0.028 1230/20 MEQ/ML 12:11:00 Injectable 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, Solution Duration: 30 day, Stop date: 10/28/20 12:10:00 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, 2.23, m2, 0 Dilaudid 2019-09 No Notes: Memoria 2-30 Same as: l 18:11: Dilaudid Mukund Calcium 2019-09 No 1,000 mL, Memor ia Chloride 2-30 Rate: 50 l 0.0014 18:11: ml/hr, [place] MEQ/ML / 00 Infuse Potassium over: 20 Chloride hr, Route: 0.004 IV, Dosing MEQ/ML / Weight Sodium 99.091 kg, Chloride Total 0.103 Volume: MEQ/ML / 1,000, Sodium Start Lactate date: 0.028 30/20 MEQ/ML 12:11:00 Injectable 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, Solution Duration: 30 day, Stop date: 10/28/20 12:10:00 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, 2.23, m2, 0 Dilaudid 2019-09 No Notes: Memoria 2-30 Same as: l 18:11: Dilaudid [place] Calcium 2019-09 No 1,000 mL, Memor ia Chloride 2-30 Rate: 50 l 0.0014 18:11: ml/hr, [place] MEQ/ML / 00 Infuse Potassium over: 20 Chloride hr, Route: 0.004 IV, Dosing MEQ/ML / Weight Sodium 99.091 kg, Chloride Total 0.103 Volume: MEQ/ML / 1,000, Sodium Start Lactate date: 0.028 12/30/20 MEQ/ML 12:11:00 Injectable 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, Solution Duration: 30 day, Stop date: 10/28/20 12:10:00 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, 2.23, m2, 0 Dilaudid 2019-09 No Notes: Memoria 2-30 Same as: l 18:11: Dilaudid dexamethaso 2019-09 No Route: IV, Memoria ne (ANES) 2-30 Drug form: l 16:03: INJ, ONCE, Stop date: 09/28/20 10:03:00 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 dexamethaso 2019-09 No Route: IV, Memoria ne (ANES) 2-30 Drug form: l 16:03: INJ, ONCE, Stop date: 09/28/20 10:03:00 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 dexamethaso 2019-09 No Route: IV, Memoria ne (ANES) 2-30 Drug form: l 16:03: INJ, ONCE, Stop date: 09/28/20 10:03:00 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 dexamethaso 2019-09 No Route: IV, Memoria ne (ANES) 2-30 Drug form: l 16:03: INJ, ONCE, Stop date: 09/28/20 10:03:00 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 ondansetron 2019-09 No Route: IV, Memoria (ANES) 2-30 Drug form: l 15:56: INJ, ONCE, Stop date: 09/28/20 9:56:00 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 glycopyrrol 2019-09 No Route: IV, Memoria ate (ANES) 2-30 Drug form: l 15:56: INJ, ONCE, Stop date: 09/28/20 9:56:00 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 neostigmine 2019-09 No Route: IV, Memoria (ANES) 2-30 Drug form: l 15:56: INJ, ONCE, Stop date: 09/28/20 9:56:00 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 ondansetron 2019-09 No Route: IV, Memoria (ANES) 2-30 Drug form: l 15:56: INJ, ONCE, Stop date: 09/28/20 9:56:00 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 glycopyrrol 2019-09 No Route: IV, Memoria ate (ANES) 2-30 Drug form: l 15:56: INJ, ONCE, Stop date: 09/28/20 9:56:00 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 neostigmine 2019-09 No Route: IV, Memoria (ANES) 2-30 Drug form: l 15:56: INJ, ONCE, Stop date: 09/28/20 9:56:00 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 ondansetron 2019-09 No Route: IV, Memoria (ANES) 2-30 Drug form: l 15:56: INJ, ONCE, Stop date: 09/28/20 9:56:00 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 glycopyrrol 2019-09 No Route: IV, Memoria ate (ANES) 2-30 Drug form: l 15:56: INJ, ONCE, Stop date: 09/28/20 9:56:00 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 neostigmine 2019-09 No Route: IV, Memoria (ANES) 2-30 Drug form: l 15:56: INJ, ONCE, Stop date: 09/28/20 9:56:00 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 ondansetron 2019-09 No Route: IV, Memoria (ANES) 2-30 Drug form: l 15:56: INJ, ONCE, Stop date: 09/28/20 9:56:00 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 glycopyrrol 2019-09 No Route: IV, Memoria ate (ANES) 2-30 Drug form: l 15:56: INJ, ONCE, Stop date: 09/28/20 9:56:00 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 neostigmine 2019-09 No Route: IV, Memoria (ANES) 2-30 Drug form: l 15:56: INJ, ONCE, Stop date: 09/28/20 9:56:00 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 Hydromorpho 2019-09 No 0.5 mg, Mem oria ne 2-30 Route: l 15:45: IVP, Q5Min, Dosing Weight 99.091, kg, PRN Pain Score 7-10, Start date: 09/28/20 9:45:00 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, Duration: 4 doses or times, Stop date: Limited # of times Flumazenil 2019-09 No 0.2 mg, Ketan estee 2-30 Route: l 15:45: IVP, PRN, Dosing Weight 99.091, kg, PRN Benzodiaze pine Reversal, Initial dose, Start date: 09/28/20 9:45:00 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, Duration: 30 day, Stop date: 10/28/20 9:44:00 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 Naloxone 2019- No 0.4 mg, Memori a 2-30 Route: l 15:45: IVP, [place] 00 Q2MIN, Dosing Weight 99.091, kg, PRN Narcotic Reversal, Start date: 09/28/20 9:45:00 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, Duration: 8 doses or times, Stop date: Limited # of times Ondansetron 2019- No 4 mg, Memor ia 2-30 Route: l 15:45: IVP, ONCE, [place] 00 Dosing Weight 99.091, kg, PRN Nausea & Vomiting, Start date: 09/28/20 9:45:00 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 Acetaminoph 2019- No 1,000 mg, M emoria en 2-30 Route: PO, l 15:45: Drug form: Mukund 00 TAB, ONCE, Dosing Weight 99.091, kg, PRN Pain Score 1-3, Start date: 09/28/20 9:45:00 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 Oxycodone 2019- No 5 mg, Memoria Hydrochlori 2-30 Route: PO, l de 5 MG 15:45: Drug form: Herm sriram Oral Tablet 00 TAB, Q4H, Dosing Weight 99.091, kg, PRN Pain Score 4-6, Start date: 09/28/20 9:45:00 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, Duration: 30 day, Stop date: 10/28/20 9:44:00 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 Fentanyl 2019- No 25 Memoria 2-30 microgram, l 15:45: Route: Mukund 00 IVP, Q5Min, Dosing Weight 99.091, kg, PRN Pain Score 4-6, Priority: Routine, Start date: 09/28/20 9:45:00 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, Duration: 4 doses or times, Stop date: Limited # of times Acetaminoph 2019- No 1,000 mg, M emoria en 2-30 Route: PO, l 15:45: Drug form: Ossian 00 TAB, ONCE, Dosing Weight 99.091, kg, PRN Pain Score 1-3, Start date: 09/28/20 9:45:00 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 Oxycodone 2019- No 5 mg, Memoria Hydrochlori 2-30 Route: PO, l de 5 MG 15:45: Drug form: Herm sriram Oral Tablet 00 TAB, Q4H, Dosing Weight 99.091, kg, PRN Pain Score 4-6, Start date: 09/28/20 9:45:00 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, Duration: 30 day, Stop date: 10/28/20 9:44:00 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 Fentanyl 2019- No 25 Memoria 2-30 microgram, l 15:45: Route: Mukund 00 IVP, Q5Min, Dosing Weight 99.091, kg, PRN Pain Score 4-6, Priority: Routine, Start date: 09/28/20 9:45:00 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, Duration: 4 doses or times, Stop date: Limited # of times Hydromorpho 2019-09 No 0.5 mg, Mem oria ne 2-30 Route: l 15:45: IVP, Ossian 00 Q5Min, Dosing Weight 99.091, kg, PRN Pain Score 7-10, Start date: 09/28/20 9:45:00 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, Duration: 4 doses or times, Stop date: Limited # of times Flumazenil 2019-09 No 0.2 mg, Ketan estee 2-30 Route: l 15:45: IVP, PRN, Mukund 00 Dosing Weight 99.091, kg, PRN Benzodiaze pine Reversal, Initial dose, Start date: 09/28/20 9:45:00 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, Duration: 30 day, Stop date: 10/28/20 9:44:00 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 Naloxone 2019- No 0.4 mg, Memori a 2-30 Route: l 15:45: IVP, Ossian 00 Q2MIN, Dosing Weight 99.091, kg, PRN Narcotic Reversal, Start date: 09/28/20 9:45:00 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, Duration: 8 doses or times, Stop date: Limited # of times Ondansetron 2019-09 No 4 mg, Memor ia 2-30 Route: l 15:45: IVP, ONCE, Ossian 00 Dosing Weight 99.091, kg, PRN Nausea & Vomiting, Start date: 09/28/20 9:45:00 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 Acetaminoph 2019-09 No 1,000 mg, M emoria en 2-30 Route: PO, l 15:45: Drug form: Ossian 00 TAB, ONCE, Dosing Weight 99.091, kg, PRN Pain Score 1-3, Start date: 09/28/20 9:45:00 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 Oxycodone 2019- No 5 mg, Memoria Hydrochlori 2-30 Route: PO, l de 5 MG 15:45: Drug form: Herm sriram Oral Tablet 00 TAB, Q4H, Dosing Weight 99.091, kg, PRN Pain Score 4-6, Start date: 09/28/20 9:45:00 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, Duration: 30 day, Stop date: 10/28/20 9:44:00 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 Fentanyl 2019- No 25 Memoria 2-30 microgram, l 15:45: Route: Ossian 00 IVP, Q5Min, Dosing Weight 99.091, kg, PRN Pain Score 4-6, Priority: Routine, Start date: 09/28/20 9:45:00 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, Duration: 4 doses or times, Stop date: Limited # of times Hydromorpho 2019- No 0.5 mg, Mem oria ne 2-30 Route: l 15:45: IVP, Ossian 00 Q5Min, Dosing Weight 99.091, kg, PRN Pain Score 7-10, Start date: 09/28/20 9:45:00 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, Duration: 4 doses or times, Stop date: Limited # of times Flumazenil 2019- No 0.2 mg, Ketan estee 2-30 Route: l 15:45: IVP, PRN, Mukund 00 Dosing Weight 99.091, kg, PRN Benzodiaze pine Reversal, Initial dose, Start date: 09/28/20 9:45:00 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, Duration: 30 day, Stop date: 10/28/20 9:44:00 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 Naloxone 2019- No 0.4 mg, Memori a 2-30 Route: l 15:45: IVP, Ossian 00 Q2MIN, Dosing Weight 99.091, kg, PRN Narcotic Reversal, Start date: 09/28/20 9:45:00 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, Duration: 8 doses or times, Stop date: Limited # of times Ondansetron 2019- No 4 mg, Memor ia 2-30 Route: l 15:45: IVP, ONCE, Mukund 00 Dosing Weight 99.091, kg, PRN Nausea & Vomiting, Start date: 09/28/20 9:45:00 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 Acetaminoph 2019- No 1,000 mg, M emoria en 2-30 Route: PO, l 15:45: Drug form: Mukund 00 TAB, ONCE, Dosing Weight 99.091, kg, PRN Pain Score 1-3, Start date: 09/28/20 9:45:00 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 Oxycodone 2019- No 5 mg, Memoria Hydrochlori 2-30 Route: PO, l de 5 MG 15:45: Drug form: Herm sriram Oral Tablet 00 TAB, Q4H, Dosing Weight 99.091, kg, PRN Pain Score 4-6, Start date: 09/28/20 9:45:00 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, Duration: 30 day, Stop date: 10/28/20 9:44:00 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 Fentanyl 2019-09 No 25 Memoria 2-30 microgram, l 15:45: Route: Ossian 00 IVP, Q5Min, Dosing Weight 99.091, kg, PRN Pain Score 4-6, Priority: Routine, Start date: 09/28/20 9:45:00 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, Duration: 4 doses or times, Stop date: Limited # of times Hydromorpho 2019- No 0.5 mg, Mem oria ne 2-30 Route: l 15:45: IVP, Mukund 00 Q5Min, Dosing Weight 99.091, kg, PRN Pain Score 7-10, Start date: 09/28/20 9:45:00 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, Duration: 4 doses or times, Stop date: Limited # of times Flumazenil 2019-09 No 0.2 mg, Ketan estee 2-30 Route: l 15:45: IVP, PRN, Mukund 00 Dosing Weight 99.091, kg, PRN Benzodiaze pine Reversal, Initial dose, Start date: 09/28/20 9:45:00 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, Duration: 30 day, Stop date: 10/28/20 9:44:00 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 Naloxone 2019-09 No 0.4 mg, Memori a 2-30 Route: l 15:45: IVP, Mukund 00 Q2MIN, Dosing Weight 99.091, kg, PRN Narcotic Reversal, Start date: 09/28/20 9:45:00 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, Duration: 8 doses or times, Stop date: Limited # of times Ondansetron 2019-09 No 4 mg, Memor ia 2-30 Route: l 15:45: IVP, ONCE, Dosing Weight 99.091, kg, PRN Nausea & Vomiting, Start date: 09/28/20 9:45:00 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 ePHEDrine 2019-09 No Route: IV, Me moria (ANES) 2-30 Drug form: l 15:05: INJ, ONCE, Stop date: 09/28/20 9:05:00 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 ePHEDrine 2019-09 No Route: IV, Me moria (ANES) 2-30 Drug form: l 15:05: INJ, ONCE, Stop date: 09/28/20 9:05:00 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 ePHEDrine 2019-09 No Route: IV, Me moria (ANES) 2-30 Drug form: l 15:05: INJ, ONCE, Stop date: 09/28/20 9:05:00 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 ePHEDrine 2019-09 No Route: IV, Me moria (ANES) 2-30 Drug form: l 15:05: INJ, ONCE, Stop date: 09/28/20 9:05:00 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 ketAMINE 2019-09 No Route: IV, Mem oria (ANES) + 2-30 Drug form: l Sodium 15:00: INJ, ONCE, Dayanna nn Chloride Stop date: 0.9% IV 09/28/20 (ANES) 240 9:00:00 mL 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 ketAMINE 2019-09 No Route: IV, Mem oria (ANES) + 2-30 Drug form: l Sodium 15:00: INJ, ONCE, Dayanna nn Chloride Stop date: 0.9% IV 09/28/20 (ANES) 240 9:00:00 mL 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 ketAMINE 2019-09 No Route: IV, Mem oria (ANES) + 2-30 Drug form: l Sodium 15:00: INJ, ONCE, Dayanna nn Chloride Stop date: 0.9% IV 09/28/20 (ANES) 240 9:00:00 mL 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 ketAMINE 2019-09 No Route: IV, Mem oria (ANES) + 2-30 Drug form: l Sodium 15:00: INJ, ONCE, Dayanna nn Chloride Stop date: 0.9% IV 09/28/20 (ANES) 240 9:00:00 mL 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 midazolam 2019-09 No Route: IV, Me moria (ANES) 2-30 Drug form: l 14:55: SOLN, Ossian 00 ONCE, Stop date: 09/28/20 8:55:00 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 lidocaine 2019-09 No Route: IV, Me moria (ANES) 2-30 Drug form: l 14:55: INJ, ONCE, Stop date: 09/28/20 8:55:00 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 fentaNYL 2019-09 No Route: IV, Mem oria (ANES) 2-30 Drug form: l 14:55: INJ, ONCE, Stop date: 09/28/20 8:55:00 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 propofol 2019-09 No Route: IV, Mem oria (ANES) 2-30 Drug form: l 14:55: INJ, ONCE, Stop date: 09/28/20 8:55:00 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 rocuronium 2019-09 No Route: IV, M emoria (ANES) 2-30 Drug form: l 14:55: INJ, ONCE, Stop date: 09/28/20 8:55:00 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 succinylcho 2019-09 No Route: IV, Memoria line (ANES) 2-30 Drug form: l 14:55: INJ, ONCE, Stop date: 09/28/20 8:55:00 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 midazolam 2019-09 No Route: IV, Me moria (ANES) 2-30 Drug form: l 14:55: SOLN, [place]ssian ONCE, Stop date: 09/28/20 8:55:00 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 lidocaine 2019-09 No Route: IV, Me moria (ANES) 2-30 Drug form: l 14:55: INJ, ONCE, Stop date: 09/28/20 8:55:00 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 fentaNYL 2019-09 No Route: IV, Mem oria (ANES) 2-30 Drug form: l 14:55: INJ, ONCE, Stop date: 09/28/20 8:55:00 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 propofol 2019-09 No Route: IV, Mem oria (ANES) 2-30 Drug form: l 14:55: INJ, ONCE, Stop date: 09/28/20 8:55:00 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 rocuronium 2020 No Route: IV, Real emoria (ANES) 2-30 Drug form: l 14:55: INJ, ONCE, Stop date: 09/28/20 8:55:00 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 succinylcho 2019-09 No Route: IV, Memoria line (ANES) 2-30 Drug form: l 14:55: INJ, ONCE, Stop date: 09/28/20 8:55:00 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 midazolam 2019-09 No Route: IV, Me moria (ANES) 2-30 Drug form: l 14:55: SOLN, ONCE, Stop date: 09/28/20 8:55:00 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 lidocaine 2019-09 No Route: IV, Me moria (ANES) 2-30 Drug form: l 14:55: INJ, ONCE, Stop date: 09/28/20 8:55:00 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 fentaNYL 2019-09 No Route: IV, Mem oria (ANES) 2-30 Drug form: l 14:55: INJ, ONCE, Stop date: 09/28/20 8:55:00 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 propofol 2020- No Route: IV, Mem oria (ANES) 2-30 Drug form: l 14:55: INJ, ONCE, Stop date: 09/28/20 8:55:00 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 rocuronium 2019-09 No Route: IV, M emoria (ANES) 2-30 Drug form: l 14:55: INJ, ONCE, Stop date: 09/28/20 8:55:00 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 succinylcho 2019-09 No Route: IV, Memoria line (ANES) 2-30 Drug form: l 14:55: INJ, ONCE, Stop date: 09/28/20 8:55:00 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 midazolam 2019-09 No Route: IV, Me moria (ANES) 2-30 Drug form: l 14:55: SOLN, Mukund 00 ONCE, Stop date: 09/28/20 8:55:00 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 lidocaine 2020- No Route: IV, Me moria (ANES) 2-30 Drug form: l 14:55: INJ, ONCE, Stop date: 09/28/20 8:55:00 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 fentaNYL 2019-09 No Route: IV, Mem oria (ANES) 2-30 Drug form: l 14:55: INJ, ONCE, Stop date: 09/28/20 8:55:00 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 propofol 2019-09 No Route: IV, Mem oria (ANES) 2-30 Drug form: l 14:55: INJ, ONCE, Stop date: 09/28/20 8:55:00 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 rocuronium 2019-09 No Route: IV, M emoria (ANES) 2-30 Drug form: l 14:55: INJ, ONCE, Stop date: 09/28/20 8:55:00 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 succinylcho 2019-09 No Route: IV, Memoria line (ANES) 2-30 Drug form: l 14:55: INJ, ONCE, Stop date: 09/28/20 8:55:00 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 cefOXitin 2019-09 No Route: IV, Me moria (ANES) 2-30 Drug form: l 14:45: INJ, ONCE, Stop date: 09/28/20 8:45:00 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 cefOXitin 2019-09 No Route: IV, Me moria (ANES) 2-30 Drug form: l 14:45: INJ, ONCE, Stop date: 09/28/20 8:45:00 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 cefOXitin 2019-09 No Route: IV, Me moria (ANES) 2-30 Drug form: l 14:45: INJ, ONCE, Stop date: 09/28/20 8:45:00 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 cefOXitin 2019-09 No Route: IV, Me moria (ANES) 2-30 Drug form: l 14:45: INJ, ONCE, Stop date: 09/28/20 8:45:00 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 phenylephri 2019-09 No Route: IV, Memoria ne (ANES) 2-30 Drug form: l 14:40: INJ, ONCE, Stop date: 09/28/20 8:40:00 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 phenylephri 2019-09 No Route: IV, Memoria ne (ANES) 2-30 Drug form: l 14:40: INJ, ONCE, 00 Stop date: 09/28/20 8:40:00 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 phenylephri 2020 No Route: IV, Memoria ne (ANES) 2-30 Drug form: l 14:40: INJ, ONCE, Mukund 00 Stop date: 09/28/20 8:40:00 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 phenylephri 2020- No Route: IV, Memoria ne (ANES) 2-30 Drug form: l 14:40: INJ, ONCE, [place]ian Stop date: 09/28/20 8:40:00 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 magnesium 2020- No Route: IV, Me moria sulfate 2-30 Drug form: l (ANES) 2000 13:45: INJ, Start Ossian mg 00 date: 09/28/20 7:45:00 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, Stop date: 09/28/20 8:45:00 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 Sodium 2020 No Route: IV, Memor ia Chloride 2-30 Drug form: l 0.9% IV 13:45: INJ, Start Herm sriram (ANES) 232 00 date: mL + 09/28/20 lidocaine 7:45:00 (ANES) 360 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, Stop mg date: 09/28/20 8:45:00 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 Sodium 2020- No Route: IV, Memor ia Chloride 2-30 Drug form: l 0.9% IV 13:45: INJ, Start Herm sriram (ANES) 240 00 date: mL + 09/28/20 ketAMINE 7:45:00 (ANES) 100 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, Stop mg date: 09/28/20 8:45:00 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 Sodium 2020- No Route: IV, Memor ia Chloride 2-30 Drug form: l 0.9% IV 13:45: INJ, Start Herm sriram (ANES) 249 00 date: mL + 09/28/20 dexmedetomi 7:45:00 dine (ANES) 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, Stop 100 date: microgram 09/28/20 8:45:00 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 Sodium 2020- No Route: IV, Memor ia Chloride 2-30 Drug form: l 0.9% IV 13:45: INJ, Start Herm sriram (ANES) 00 date: 242.5 mL + 09/28/20 esmolol 7:45:00 (ANES) 75 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, Stop mg date: 09/28/20 8:45:00 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 Sodium 2020- No Route: IV, Memor ia Chloride 2-30 Total l 0.9% IV 13:45: Volume: Mukund (ANES) 1000 00 1,000, mL Start date: 09/28/20 7:45:00 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, Stop date: 09/28/20 8:45:00 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 Sodium 2020 No Route: IV, Memor ia Chloride 2-30 Drug form: l 0.9% IV 13:45: INJ, Start Herm sriram (ANES) 240 00 date: mL + 09/28/20 ketAMINE 7:45:00 (ANES) 100 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, Stop mg date: 09/28/20 8:45:00 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 Sodium 2019-09 No Route: IV, Memor ia Chloride 2-30 Drug form: l 0.9% IV 13:45: INJ, Start Herm sriram (ANES) 249 00 date: mL + 09/28/20 dexmedetomi 7:45:00 dine (ANES) 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, Stop 100 date: microgram 09/28/20 8:45:00 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 Sodium 2019-09 No Route: IV, Memor ia Chloride 2-30 Drug form: l 0.9% IV 13:45: INJ, Start Herm sriram (ANES) 00 date: 242.5 mL + 09/28/20 esmolol 7:45:00 (ANES) 75 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, Stop mg date: 09/28/20 8:45:00 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 Sodium 2020 No Route: IV, Memor ia Chloride 2-30 Total l 0.9% IV 13:45: Volume: Mukund (ANES) 1000 00 1,000, mL Start date: 09/28/20 7:45:00 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, Stop date: 09/28/20 8:45:00 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 magnesium 2019-09 No Route: IV, Me moria sulfate 2-30 Drug form: l (ANES) 1999 13:45: INJ, Start Mukund mg 00 date: 09/28/20 7:45:00 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, Stop date: 09/28/20 8:45:00 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 Sodium 2020 No Route: IV, Memor ia Chloride 2-30 Drug form: l 0.9% IV 13:45: INJ, Start Herm sriram (ANES) 232 00 date: mL + 09/28/20 lidocaine 7:45:00 (ANES) 360 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, Stop mg date: 09/28/20 8:45:00 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 Sodium 2020- No Route: IV, Memor ia Chloride 2-30 Drug form: l 0.9% IV 13:45: INJ, Start Herm sriram (ANES) 240 00 date: mL + 09/28/20 ketAMINE 7:45:00 (ANES) 100 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, Stop mg date: 09/28/20 8:45:00 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 Sodium 2020- No Route: IV, Memor ia Chloride 2-30 Drug form: l 0.9% IV 13:45: INJ, Start Herm sriram (ANES) 249 00 date: mL + 09/28/20 dexmedetomi 7:45:00 dine (ANES) 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, Stop 100 date: microgram 09/28/20 8:45:00 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 Sodium 2020- No Route: IV, Memor ia Chloride 2-30 Drug form: l 0.9% IV 13:45: INJ, Start Herm sriram (ANES) 00 date: 242.5 mL + 09/28/20 esmolol 7:45:00 (ANES) 75 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, Stop mg date: 09/28/20 8:45:00 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 Sodium 2020 No Route: IV, Memor ia Chloride 2-30 Total l 0.9% IV 13:45: Volume: Mukund (ANES) 1000 00 1,000, mL Start date: 09/28/20 7:45:00 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, Stop date: 09/28/20 8:45:00 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 magnesium 2020- No Route: IV, Me moria sulfate 2-30 Drug form: l (ANES) 1999 13:45: INJ, Start Ossian mg 00 date: 09/28/20 7:45:00 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, Stop date: 09/28/20 8:45:00 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 Sodium 2020 No Route: IV, Memor ia Chloride 2-30 Drug form: l 0.9% IV 13:45: INJ, Start Herm sriram (ANES) 232 00 date: mL + 09/28/20 lidocaine 7:45:00 (ANES) 360 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, Stop mg date: 09/28/20 8:45:00 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 Sodium 2020- No Route: IV, Memor ia Chloride 2-30 Drug form: l 0.9% IV 13:45: INJ, Start Herm sriram (ANES) 240 00 date: mL + 09/28/20 ketAMINE 7:45:00 (ANES) 100 GUN SEALING MACHINE OPERATOR, Stop mg date: 09/28/20 8:45:00 GUN SEALING MACHINE OPERATOR Sodium 2020- No Route: IV, Memor ia Chloride 2-30 Drug form: l 0.9% IV 13:45: INJ, Start Herm sriram (ANES) 249 00 date: mL + 09/28/20 dexmedetomi 7:45:00 dine (ANES) GUN SEALING MACHINE OPERATOR, Stop 100 date: microgram 09/28/20 8:45:00 GUN SEALING MACHINE OPERATOR Sodium 2020 No Route: IV, Memor ia Chloride 2-30 Drug form: l 0.9% IV 13:45: INJ, Start Herm sriram (ANES) 00 date: 242.5 mL + 09/28/20 esmolol 7:45:00 (ANES) 75 GUN SEALING MACHINE OPERATOR, Stop mg date: 09/28/20 8:45:00 GUN SEALING MACHINE OPERATOR Sodium 2020 No Route: IV, Memor ia Chloride 2-30 Total l 0.9% IV 13:45: Volume: Ossian (ANES) 1000 00 1,000, mL Start date: 09/28/20 7:45:00 GUN SEALING MACHINE OPERATOR, Stop date: 09/28/20 8:45:00 GUN SEALING MACHINE OPERATOR magnesium 2019-09 No Route: IV, Me moria sulfate 2-30 Drug form: l (ANES) 1999 13:45: INJ, Start Ossian mg 00 date: 09/28/20 7:45:00 GUN SEALING MACHINE OPERATOR, Stop date: 09/28/20 8:45:00 GUN SEALING MACHINE OPERATOR Sodium 2020 No Route: IV, Memor ia Chloride 2-30 Drug form: l 0.9% IV 13:45: INJ, Start Herm sriram (ANES) 232 00 date: mL + 09/28/20 lidocaine 7:45:00 (ANES) 360 GUN SEALING MACHINE OPERATOR, Stop mg date: 09/28/20 8:45:00 GUN SEALING MACHINE OPERATOR Lactated 2019-09 No Route: IV, Mem oria Ringers 2-30 Total l Injection 13:34: Volume: Dayanna nn IV (ANES) 00 1,000, 1000 mL Start date: 09/28/20 7:34:00 GUN SEALING MACHINE OPERATOR, Stop date: 09/28/20 8:34:00 GUN SEALING MACHINE OPERATOR Lactated 2020-1 No Route: IV, Mem oria Ringers 2-30 Total l Injection 13:34: Volume: Dayanna nn IV (ANES) 00 1,000, 1000 mL Start date: 09/28/20 7:34:00 GUN SEALING MACHINE OPERATOR, Stop date: 09/28/20 8:34:00 GUN SEALING MACHINE OPERATOR Lactated 2020-1 No Route: IV, Mem oria Ringers 2-30 Total l Injection 13:34: Volume: Dayanna nn IV (ANES) 00 1,000, 1000 mL Start date: 09/28/20 7:34:00 GUN SEALING MACHINE OPERATOR, Stop date: 09/28/20 8:34:00 GUN SEALING MACHINE OPERATOR Lactated 2020-1 No Route: IV, Mem oria Ringers 2-30 Total l Injection 13:34: Volume: Dayanna nn IV (ANES) 00 1,000, 1000 mL Start date: 09/28/20 7:34:00 GUN SEALING MACHINE OPERATOR, Stop date: 09/28/20 8:34:00 GUN SEALING MACHINE OPERATOR Metoprolol 2020-1 No 5 mg, Memori a 2-30 Route: IV, l 13:12: ONCE, Dosing Weight 99.091, kg, Start date: 09/28/20 7:12:00 GUN SEALING MACHINE OPERATOR, Stop date: 09/28/20 7:12:00 GUN SEALING MACHINE OPERATOR Metoprolol 2020-1 No 5 mg, Memori a 2-30 Route: IV, l 13:12: ONCE, Dosing Weight 99.091, kg, Start date: 09/28/20 7:12:00 GUN SEALING MACHINE OPERATOR, Stop date: 09/28/20 7:12:00 GUN SEALING MACHINE OPERATOR Metoprolol 2020-1 No 5 mg, Memori a 2-30 Route: IV, l 13:12: ONCE, Dosing Weight 99.091, kg, Start date: 09/28/20 7:12:00 GUN SEALING MACHINE OPERATOR, Stop date: 09/28/20 7:12:00 GUN SEALING MACHINE OPERATOR Metoprolol 2020-1 No 5 mg, Memori a 2-30 Route: IV, l 13:12: ONCE, Dosing Weight 99.091, kg, Start date: 09/28/20 7:12:00 GUN SEALING MACHINE OPERATOR, Stop date: 09/28/20 7:12:00 GUN SEALING MACHINE OPERATOR Robaxin 2020-1 No 1,000 mg, Memor ia 2-30 Route: PO, l 13:10: ONCE, Ossian 00 Dosing Weight 99.091, kg, Start date: 09/28/20 7:10:00 GUN SEALING MACHINE OPERATOR, Stop date: 09/28/20 7:10:00 GUN SEALING MACHINE OPERATOR Robaxin 2020-1 No 1,000 mg, Memor ia 2-30 Route: PO, l 13:10: ONCE, Ossian 00 Dosing Weight 99.091, kg, Start date: 09/28/20 7:10:00 GUN SEALING MACHINE OPERATOR, Stop date: 09/28/20 7:10:00 GUN SEALING MACHINE OPERATOR Robaxin 2020-1 No 1,000 mg, Memor ia 2-30 Route: PO, l 13:10: ONCE, Mukund 00 Dosing Weight 99.091, kg, Start date: 09/28/20 7:10:00 GUN SEALING MACHINE OPERATOR, Stop date: 09/28/20 7:10:00 GUN SEALING MACHINE OPERATOR Robaxin 2020-1 No 1,000 mg, Memor ia 2-30 Route: PO, l 13:10: ONCE, Dosing Weight 99.091, kg, Start date: 09/28/20 7:10:00 GUN SEALING MACHINE OPERATOR, Stop date: 09/28/20 7:10:00 GUN SEALING MACHINE OPERATOR Calcium 2020-1 No 1,000 mL, Memor ia Chloride 2-30 Rate: 75 l 0.0014 11:42: ml/hr, Ossian MEQ/ML / 00 Infuse Potassium over: 13.3 Chloride hr, Route: 0.004 IV, Dosing MEQ/ML / Weight Sodium 99.091 kg, Chloride Total 0.103 Volume: MEQ/ML / 1,000, Sodium Start Lactate date: 0.028 09/28/20 MEQ/ML 5:42:00 Injectable GUN SEALING MACHINE OPERATOR, Solution Duration: 1 day, Stop date: 09/29/20 5:41:00 GUN SEALING MACHINE OPERATOR, 2.23, m2, 0 Calcium 2020-1 No 1,000 mL, Memor ia Chloride 2-30 Rate: 75 l 0.0014 11:42: ml/hr, Mukund MEQ/ML / 00 Infuse Potassium over: 13.3 Chloride hr, Route: 0.004 IV, Dosing MEQ/ML / Weight Sodium 99.091 kg, Chloride Total 0.103 Volume: MEQ/ML / 1,000, Sodium Start Lactate date: 0.028 09/28/20 MEQ/ML 5:42:00 Injectable GUN SEALING MACHINE OPERATOR, Solution Duration: 1 day, Stop date: 09/29/20 5:41:00 GUN SEALING MACHINE OPERATOR, 2.23, m2, 0 Calcium 2019- No 1,000 mL, Memor ia Chloride 2-30 Rate: 75 l 0.0014 11:42: ml/hr, Ossian MEQ/ML / 00 Infuse Potassium over: 13.3 Chloride hr, Route: 0.004 IV, Dosing MEQ/ML / Weight Sodium 99.091 kg, Chloride Total 0.103 Volume: MEQ/ML / 1,000, Sodium Start Lactate date: 0.028 12/30/20 MEQ/ML 5:42:00 Injectable GUN SEALING MACHINE OPERATOR, Solution Duration: 1 day, Stop date: 09/29/20 5:41:00 GUN SEALING MACHINE OPERATOR, 2.23, m2, 0 Calcium 2019- No 1,000 mL, Memor ia Chloride 2-30 Rate: 75 l 0.0014 11:42: ml/hr, Mukund MEQ/ML / 00 Infuse Potassium over: 13.3 Chloride hr, Route: 0.004 IV, Dosing MEQ/ML / Weight Sodium 99.091 kg, Chloride Total 0.103 Volume: MEQ/ML / 1,000, Sodium Start Lactate date: 0.028 12/30/20 MEQ/ML 5:42:00 Injectable GUN SEALING MACHINE OPERATOR, Solution Duration: 1 day, Stop date: 09/29/20 5:41:00 GUN SEALING MACHINE OPERATOR, 2.23, m2, 0 Mefoxin 2019-09 No 2 gm, Memoria 2- Route: l 16:00: IVPB, Mukund 00 [id number], Dosing Weight 99.545, kg, Start date: 09/26/20 10:00:00 GUN SEALING MACHINE OPERATOR, Duration: 1 day, Stop date: 09/27/20 4:00:00 GUN SEALING MACHINE OPERATOR, ABX Indication : Surgical Prophylaxi s Celebrex 2019-09 No Notes: Memoria 2-28 NSAID. l 16:00: Please Oss[place] 00 check indication . Not for seizure. (Same As: CeleBREX) Robaxin 2019-09 No Notes: Memoria 2-28 (Same l 16:00: as:Robaxin Mukund 00 ) gabapentin 2019-09 No Notes: Memor ia 300 MG Oral 2-28 (Same as: l Capsule 16:00: Neurontin) Herm sriram [Neurontin] 00 Entereg 2019-09 No Notes: Memoria 2-28 Same as: l 16:00: Entereg Mukund 00 Maximum of 15 doses Alert Restricted medication Alvimopan (Entergen) order form must be completed prior to dispensing . Mefoxin 2019-09 No 2 gm, Memoria 2-28 Route: l 16:00: IVPB, [place] 00 ABXQ6H, Dosing Weight 99.545, kg, Start date: 09/26/20 10:00:00 GUN SEALING MACHINE OPERATOR, Duration: 1 day, Stop date: 09/27/20 4:00:00 GUN SEALING MACHINE OPERATOR, ABX Indication : Surgical Prophylaxi s Celebrex 2019-09 No Notes: Memoria 2-28 NSAID. l 16:00: Please Mukund 00 check indication . Not for seizure. (Same As: CeleBREX) Robaxin 2019-09 No Notes: Memoria 2-28 (Same l 16:00: as:Robaxin Mukund ) gabapentin 2019-09 No Notes: Memor ia 300 MG Oral 2-28 (Same as: l Capsule 16:00: Neurontin) Herm sriram [Neurontin] 00 Entereg 2019-09 No Notes: Memoria 2-28 Same as: l 16:00: Entereg [place] Maximum of 15 doses Alert Restricted medication Alvimopan (Entergen) order form must be completed prior to dispensing . 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 l 16:00: Please [place]ssian 00 check indication . Not for seizure. (Same As: CeleBREX) Robaxin 2019-09 No Notes: Memoria 2-28 (Same l 16:00: as:Robaxin [place] ) gabapentin 2019-09 No Notes: Memor ia 300 MG Oral 2-28 (Same as: l Capsule 16:00: Neurontin) Herm sriram [Neurontin] 00 Entereg 2019-09 No Notes: Memoria 2-28 Same as: l 16:00: Entereg Mukund 00 Maximum of 15 doses Alert Restricted medication Alvimopan (Entergen) order form must be completed prior to dispensing . 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 l 16:00: Please Mukund 00 check indication . Not for seizure. (Same As: CeleBREX) Robaxin 2019-09 No Notes: Memoria -28 (Same l 16:00: as:Robaxin ) gabapentin 2019-09 No Notes: Memor ia 300 MG Oral 11-27 (Same as: l Capsule 16:00: Neurontin) Herm sriram [Neurontin] 00 Entereg 2019-09 No Notes: Memoria 2-28 Same as: l 16:00: Entereg [place] 00 Maximum of 15 doses Alert Restricted medication Alvimopan (Entergen) order form must be completed prior to dispensing . Jardiance 2019-09 Yes PO, QAM, 0 Me moria 2-28 Refill(s) l 15:39: empaglifloz 2019-09 Yes 25 mg = 1 M emoria in 25 MG 2-28 tab, PO, l Oral Tablet 15:39: QAM, 0 Herm sriram [Jardiance] 00 Refill(s) Jardiance 2019-09 Yes PO, QAM, 0 Me moria 2-28 Refill(s) l 15:39: empaglifloz 2019-09 Yes 25 mg = 1 M emoria in 25 MG 2-28 tab, PO, l Oral Tablet 15:39: QAM, 0 Herm sriram [Jardiance] 00 Refill(s) Jardiance 2019-09 Yes PO, QAM, 0 Me moria 2-28 Refill(s) l 15:39: [place] 00 empaglifloz 2019-09 Yes 25 mg = 1 M emoria in 25 MG 2-28 tab, PO, l Oral Tablet 15:39: QAM, 0 Herm sriram [Jardiance] 00 Refill(s) Jardiance 2019- Yes PO, QAM, 0 Me moria 11-27 Refill(s) l 15:39: Mkuund 00 empaglifloz 2019-09 Yes 25 mg = 1 M emoria in 25 MG 11-27 tab, PO, l Oral Tablet 15:39: QAM, 0 Herm sriram [Jardiance] 00 Refill(s) Metformin 2019-0 Yes KHURSHEED 1 tablet Memoria HCl 9-03 [place] with a l 04:10: meal Mukund Glimepiride 2019-0 Yes KHURSHEED 1 tablet Memoria 9-03 [place] with l 04:10: breakfast Mukund or the first main meal of the day HydrALAZINE 2019-0 Yes [facility]ED [facility] l 04:10: Mukund Metformin 2020-0 Yes KHURSHEED 1 tablet [facility] 9[facility]03 [facility] l 04:10: meal Mukund 25 Glimepiride 2019-0 Yes KHURSHEED 1 tablet Memoria 9-03 [place] with l 04:10: breakfast Mukund or the first main meal of the day HydrALAZINE 2019-0 Yes KHURSHEED 1 tablet [facility] 9-03 [facility] with food l 04:10: [place] Metformin 2020-0 Yes KHURSHEED 1 tablet [facility] HCl 9-03 [facility] with [facility] l 04:10: meal [place] Glimepiride 2020-0 Yes KHURSHEED 1 tablet Memoria 9-03 [place] with l 04:10: breakfast [place] 25 or the first main meal of the day HydrALAZINE 2019-0 Yes KHURSHEED 1 tablet [facility] HCl 9-03 [facility] l 04:10: [place] 25 Metformin 2020-0 Yes KHURSHEED 1 tablet Mem[facility] HCl 9-03 [place] with a l 04:10: meal Mukund 25 Glimepiride 2020-0 Yes KHURSHEED 1 tablet [facility] 9[facility] with l 04:10: breakfast [place] 25 or the first main meal of the day HydrALAZINE 2019-0 Yes KHURSHEED 1 tablet [facility] HCl 9-03 [place] with food l 04:10: [place] 25 pantoprazol 2020-0 Yes 20 mg = 1 M emoria e 20 mg 7-14 tab, PO, l oral 16:53: Daily, 0 [place] enteric 00 Refill(s) coated tablet pantoprazol 2020-0 Yes 20 mg = 1 M emoria e 20 mg 7-14 tab, PO, l oral 16:53: Daily, 0 Mukund enteric 00 Refill(s) coated tablet pantoprazol 2020-0 Yes 20 mg = 1 M emoria e 20 mg 7-14 tab, PO, l oral 16:53: Daily, 0 [place] enteric 00 Refill(s) coated tablet pantoprazol 2020-0 Yes 20 mg = 1 M emoria e 20 mg 7-14 tab, PO, l oral 16:53: Daily, 0 [place] enteric 00 Refill(s) coated tablet Vitamin 2018- Yes KHURSHEED as Memor ia B-12 2-04 [place] directed l 05:10: [place] Vitamin 2018-09 Yes KHURSHEED as Memor ia B-12 2-04 [place] directed l 05:10: [place] Vitamin 2018-09 Yes KHURSHEED as Memor ia B-12 2-04 [place] directed l 05:10: [place] Vitamin 2018-09 Yes KHURSHEED as Memor ia B-12 2-04 [place] directed l 05:10: [place] Viagra Yes KHURSHEED 1/2 to 1 Me moria 5-21 [place] tablet as l 00:00: needed [place] 00 Viagra 0 Yes KHURSHEED 1/2 to 1 Me moria 5-21 [place] tablet as l 00:00: needed Mukund 00 Viagra 2018-0 Yes KHURSHEED 1/2 to 1 Me moria 5-21 [place] tablet as l 00:00: needed Mukund 00 Viagra Yes KHURSHEED 1/2 to 1 Me moria 5-21 [place] tablet as l 00:00: needed Mukund 00 Feosol Yes KHURSHEED 1 tablet Me moria 2-25 [place] l 00:00: Mukund 00 Feosol 2019-0 Yes KHURSHEED 1 tablet Me moria 2-25 [place] l 00:00: Mukundosol 2019-0 Yes KHURSHEED 1 tablet Me moria 2-25 [place] l 00:00: [place]osol 2019-0 Yes KHURSHEED 1 tablet Me moria 2-25 [place] l 00:00: Mukund 00 ondansetron 2018-0 Yes 4mg Take 1 Univ ers 4 mg 7-11 tablet by ity of disintegrat 00:00: mouth [place] ing tablet 00 every 4 Medica l (four) Branch hours as needed for Nausea and Vomiting (N/V). ondansetron 2018-0 Yes 4mg Take 1 Univ ers 4 mg 7-11 tablet by ity of disintegrat 00:00: mouth [place] ing tablet 00 every 4 Medica l (four) Branch hours as needed for Nausea and Vomiting (N/V). ondansetron 2018-0 Yes 4mg Take 1 Univ ers 4 mg 7-11 tablet by ity of disintegrat 00:00: mouth [place] ing tablet 00 every 4 Medica l (four) Branch hours as needed for Nausea and Vomiting (N/V). ondansetron 2018-0 Yes 4mg Take 1 Univ ers 4 mg 7-11 tablet by ity of disintegrat 00:00: mouth [place] ing tablet 00 every 4 Medica l (four) Branch hours as needed for Nausea and Vomiting (N/V). ondansetron 2018-0 Yes 4mg Take 1 Univ ers 4 mg 7-11 tablet by ity of disintegrat 00:00: mouth [place] ing tablet 00 every 4 Medica l (four) Branch hours as needed for Nausea and Vomiting (N/V). ondansetron 2018-0 Yes 4mg Take 1 Univ ers 4 mg 7-11 tablet by ity of disintegrat 00:00: mouth [place] ing tablet 00 every 4 Medica l (four) Branch hours as needed for Nausea and Vomiting (N/V). ondansetron 2018-0 Yes 4mg Take 1 Univ ers 4 mg 7-11 tablet by ity of disintegrat 00:00: mouth [place] ing tablet 00 every 4 Medica l (four) Branch hours as needed for Nausea and Vomiting (N/V). ondansetron 2018-0 Yes 4mg Take 1 Univ ers 4 mg 7-11 tablet by ity of disintegrat 00:00: mouth [place] ing tablet 00 every 4 Medica l (four) Branch hours as needed for Nausea and Vomiting (N/V). Hydralazine 2017- Yes 25 mg = 1 M emoria Hydrochlori - tab, PO, l de 25 MG 17:00: BID, # 60 Herm sriram Oral Tablet 00 tab, 0 Refill(s), Pharmacy: [facility] Hydralazine Yes 25 mg = 1 M emoria Hydrochlori 04-07 tab, PO, l de 25 MG 17:00: BID, # 60 Herm sriram Oral Tablet 00 tab, 0 Refill(s), Pharmacy: [facility] Hydralazine Yes 25 mg = 1 M emoria Hydrochlori 04-07 tab, PO, l de 25 MG 17:00: BID, # 60 Herm sriram Oral Tablet 00 tab, 0 Refill(s), Pharmacy: [facility] Hydralazine Yes 25 mg = 1 M emoria Hydrochlori 04-07 tab, PO, l de 25 MG 17:00: BID, # 60 Herm sriram Oral Tablet 00 tab, 0 Refill(s), Pharmacy: [facility] Metformin Yes 1,000 mg = Me moria hydrochlori 3-21 1 tab, PO, l de 1000 MG 18:37: BID-Meals, H ermann Oral Tablet 00 # 180 tab, 1 Refill(s), Pharmacy: [facility] Metformin Yes 1,000 mg = Me moria hydrochlori 3-21 1 tab, PO, l de 1000 MG 18:37: BID-Meals, H ermann Oral Tablet 00 # 180 tab, 1 Refill(s), Pharmacy: [facility] Metformin Yes 1,000 mg = Me moria hydrochlori 3-21 1 tab, PO, l de 1000 MG 18:37: BID-Meals, H ermann Oral Tablet 00 # 180 tab, 1 Refill(s), Pharmacy: [facility] Metformin Yes 1,000 mg = Me moria hydrochlori 3-21 1 tab, PO, l de 1000 MG 18:37: BID-Meals, H ermann Oral Tablet 00 # 180 tab, 1 Refill(s), Pharmacy: [facility] 0.5 ML 2018-0 Yes 1.5 mg, Memoria dulaglutide 3-15 SUB-Q, l 3 MG/ML 17:25: qWeek, # Daljit n Prefilled 00 12 pen(s), Syringe 0 [Trulicity] Refill(s), Pharmacy: [place] [address] 0.5 ML 2018-0 Yes 1.5 mg, Memoria dulaglutide 3-15 SUB-Q, l 3 MG/ML 17:25: qWeek, # Daljit n Prefilled 00 12 pen(s), Syringe 0 [Trulicity] Refill(s), Pharmacy: [place] [address] 0.5 ML 2018-0 Yes 1.5 mg, Memoria dulaglutide 3-15 SUB-Q, l 3 MG/ML 17:25: qWeek, # Daljit n Prefilled 00 12 pen(s), Syringe 0 [Trulicity] Refill(s), Pharmacy: [place] [address] 0.5 ML 2018-0 Yes 1.5 mg, Memoria dulaglutide 3-15 SUB-Q, l 3 MG/ML 17:25: qWeek, # Daljit n Prefilled 00 12 pen(s), Syringe 0 [Trulicity] Refill(s), Pharmacy: [facility] metFORMIN No 1,000 mg = Me moria 1000 mg 3- 1 tab, PO, l oral 13:50: BID, # 180 [place] tablet, 00 tab, 0 extended Refill(s), release Pharmacy: [facility] metFORMIN No 1,000 mg = Me moria 1000 mg 3- 1 tab, PO, l oral 13:50: BID, # 180 [place] tablet, 00 tab, 0 extended Refill(s), release Pharmacy: [facility] metFORMIN No 1,000 mg = Me moria 1000 mg 3-09 1 tab, PO, l oral 13:50: BID, # 180 Mukund tablet, 00 tab, 0 extended Refill(s), release Pharmacy: [facility] metFORMIN No 1,000 mg = Me moria 1000 mg 3-09 1 tab, PO, l oral 13:50: BID, # 180 Mukund tablet, 00 tab, 0 extended Refill(s), release Pharmacy: [facility] metoprolol Yes 100 mg = 1 M emoria tartrate 3-02 tab, PO, l 100 mg oral 15:44: BID, # 180 [place]und tablet 52 tab, 0 Refill(s), Pharmacy: [facility] metoprolol Yes 100 mg = 1 M emoria tartrate 3-02 tab, PO, l 100 mg oral 15:44: BID, # 180 [place] tablet 52 tab, 0 Refill(s), Pharmacy: [facility] metoprolol Yes 100 mg = 1 M emoria tartrate 3-02 tab, PO, l 100 mg oral 15:44: BID, # 180 Mukund tablet 52 tab, 0 Refill(s), Pharmacy: [place] [id number] metoprolol Yes 100 mg = 1 M emoria tartrate 3-02 tab, PO, l 100 mg oral 15:44: BID, # 180 Mukund tablet 52 tab, 0 Refill(s), Pharmacy: [place] [address] metFORMIN No 1,000 mg = Me moria 1000 mg 3-02 1 tab, PO, l oral 15:44: BID, X 90 [place] tablet, 49 day, # 180 extended tab, 0 release Refill(s), Pharmacy: [place] [address] metFORMIN No 1,000 mg = Me moria 1000 mg 3-02 1 tab, PO, l oral 15:44: BID, X 90 Mukund tablet, 49 day, # 180 extended tab, 0 release Refill(s), Pharmacy: [place] [address] metFORMIN No 1,000 mg = Me moria 1000 mg 3-02 1 tab, PO, l oral 15:44: BID, X 90 [place] tablet, 49 day, # 180 extended tab, 0 release Refill(s), Pharmacy: [facility] metFORMIN No 1,000 mg = Me moria 1000 mg 3-02 1 tab, PO, l oral 15:44: BID, X 90 Mukund tablet, 49 day, # 180 extended tab, 0 release Refill(s), Pharmacy: [facility] Hydrochloro Yes 1 tab, PO, Memoria thiazide 25 3-02 Daily, # l MG / 15:44: 90 tab, 0 Mukund valsartan 46 Refill(s), 320 MG Oral Pharmacy: [facility] Hydrochloro Yes 1 tab, PO, Memoria thiazide 25 3-02 Daily, # l MG / 15:44: 90 tab, 0 Mukund valsartan 46 Refill(s), 320 MG Oral Pharmacy: [facility] Hydrochloro Yes 1 tab, PO, Memoria thiazide 25 3-02 Daily, # l MG / 15:44: 90 tab, 0 Mukund valsartan 46 Refill(s), 320 MG Oral Pharmacy: [facility] Hydrochloro Yes 1 tab, PO, Memoria thiazide 25 3-02 Daily, # l MG / 15:44: 90 tab, 0 [place] valsartan 46 Refill(s), 320 MG Oral Pharmacy: [place] [id number] glimepiride Yes 4 mg = 1 Me moria 4 mg oral 3-02 tab, PO, l tablet 15:44: BID, # 180 Dayanna nn 43 tab, 0 Refill(s), Pharmacy: [place] [address] glimepiride Yes 4 mg = 1 Me moria 4 mg oral 3-02 tab, PO, l tablet 15:44: BID, # 180 Dayanna nn 43 tab, 0 Refill(s), Pharmacy: [place] [address] glimepiride Yes 4 mg = 1 Me moria 4 mg oral 3-02 tab, PO, l tablet 15:44: BID, # 180 Dayanna nn 43 tab, 0 Refill(s), Pharmacy: [facility] glimepiride Yes 4 mg = 1 Me moria 4 mg oral 3-02 tab, PO, l tablet 15:44: BID, # 180 Dayanna nn 43 tab, 0 Refill(s), Pharmacy: [facility] atorvastati Yes 40 mg = 1 M emoria n 40 mg 3-02 tab, PO, l oral tablet 15:44: Daily, # He rmann 40 90 tab, 0 Refill(s), Pharmacy: [facility] atorvastati Yes 40 mg = 1 M emoria n 40 mg 3-02 tab, PO, l oral tablet 15:44: Daily, # He rmann 40 90 tab, 0 Refill(s), Pharmacy: [facility] atorvastati Yes 40 mg = 1 M emoria n 40 mg 3-02 tab, PO, l oral tablet 15:44: Daily, # He rmann 40 90 tab, 0 Refill(s), Pharmacy: [facility] atorvastati Yes 40 mg = 1 M emoria n 40 mg 3-02 tab, PO, l oral tablet 15:44: Daily, # He rmann 40 90 tab, 0 Refill(s), Pharmacy: [facility] amLODIPine Yes 10 mg = 1 Me moria 10 mg oral 3-02 tab, PO, l tablet 15:44: Bedtime, # Dayanna nn 00 90 tab, 0 Refill(s), Pharmacy: [place] [id number] amLODIPine Yes 10 mg = 1 Me moria 10 mg oral 3-02 tab, PO, l tablet 15:44: Bedtime, # Dayanna nn 00 90 tab, 0 Refill(s), Pharmacy: [place] [address] amLODIPine Yes 10 mg = 1 Me moria 10 mg oral 3-02 tab, PO, l tablet 15:44: Bedtime, # Dayanna nn 00 90 tab, 0 Refill(s), Pharmacy: [place] [address] amLODIPine Yes 10 mg = 1 Me moria 10 mg oral 3-02 tab, PO, l tablet 15:44: Bedtime, # Dayanna nn 00 90 tab, 0 Refill(s), Pharmacy: [facility] Promethazin 2017- No 5 mL, PO, M emoria e DM oral 3-02 Q6H, PRN l syrup 15:43: for cough, Daljit n 00 X 10 day, # 200 mL, 0 Refill(s), Pharmacy: [facility] Amoxicillin 2017- No 875 mg = 1 Memoria 875 MG / 3-02 tab, PO, l Clavulanate 15:43: BID, X 10 H ermann 125 MG Oral 00 day, # 20 Tablet tab, 0 [Augmentin Refill(s), 875-mg] Pharmacy: [place] [address] Promethazin 2018-0 No 5 mL, PO, M emoria e DM oral 3-02 Q6H, PRN l syrup 15:43: for cough, Daljit n 00 X 10 day, # 200 mL, 0 Refill(s), Pharmacy: [facility] Amoxicillin 2018-0 No 875 mg = 1 Memoria 875 MG / 3-02 tab, PO, l Clavulanate 15:43: BID, X 10 H ermann 125 MG Oral 00 day, # 20 Tablet tab, 0 [Augmentin Refill(s), 875-mg] Pharmacy: [facility] Promethazin 2018-0 No 5 mL, PO, M emoria e DM oral 3-02 Q6H, PRN l syrup 15:43: for cough, Daljit n 00 X 10 day, # 200 mL, 0 Refill(s), Pharmacy: [facility] Amoxicillin 2018-0 No 875 mg = 1 Memoria 875 MG / 3-02 tab, PO, l Clavulanate 15:43: BID, X 10 H ermann 125 MG Oral 00 day, # 20 Tablet tab, 0 [Augmentin Refill(s), 875-mg] Pharmacy: [facility] Promethazin 2018-0 No 5 mL, PO, M emoria e DM oral 3-02 Q6H, PRN l syrup 15:43: for cough, Dlajit n 00 X 10 day, # 200 mL, 0 Refill(s), Pharmacy: [facility] Amoxicillin 2018-0 No 875 mg = 1 Memoria 875 MG / 3-02 tab, PO, l Clavulanate 15:43: BID, X 10 H ermann 125 MG Oral 00 day, # 20 Tablet tab, 0 [Augmentin Refill(s), 875-mg] Pharmacy: [facility] 3 ML 2018-0 Yes 60 unit, Memoria insulin 3-02 SUB-Q, l detemir 100 15:37: Bedtime, # [place] UNT/ML 49 5 vial, 0 Prefilled Refill(s), Syringe Pharmacy: [[facility]] [facility] 3 ML 2017-0 Yes 60 unit, Memoria insulin 3-02 SUB-Q, l detemir 100 15:37: Bedtime, # Mukund UNT/ML 49 5 vial, 0 Prefilled Refill(s), Syringe Pharmacy: [[facility]] [facility] 3 ML 2018-0 Yes 60 unit, Memoria insulin 3-02 SUB-Q, l detemir 100 15:37: Bedtime, # Mukund UNT/ML 49 5 vial, 0 Prefilled Refill(s), Syringe Pharmacy: [[facility]] [facility] 3 ML 2018-0 Yes 60 unit, Memoria insulin 3-02 SUB-Q, l detemir 100 15:37: Bedtime, # [place] UNT/ML 49 5 vial, 0 Prefilled Refill(s), Syringe Pharmacy: [[facility]] [facility] Immunizations Ordered Immunization Filled Immunization Date Status Commen ts Source Name Name Covid Vaccine 2020-12-09 Completed [facility] (Gavin) 00:00:00 [place] Covid Vaccine 2020-12-09 Completed [facility] (Gavin) 00:00:00 [place] Covid Vaccine 2020-12-09 Completed [facility] ([facility]avin) 00:00:00 [place] Covid Vaccine 2020-12-09 Completed [facility] (Gavin) 00:00:00 [place] influenza virus 2017-06-19 Completed [facility] vaccine, 21:00:00 [place] inactivated<sup>1</s up> influenza virus 2017-06-19 Completed [facility] vaccine, 21:00:00 [place] inactivated<sup>1</s up> influenza virus 2017-06-19 Completed [facility] vaccine, 21:00:00 [place] inactivated<sup>1</s up> influenza virus 2017-06-19 Completed [facility] vaccine, 21:00:00 [place] inactivated<sup>1</s up> hepatitis B adult 2017-06-19 Completed Memoria l vaccine<sup>2</sup> 20:59:00 Dayanna nn hepatitis B adult 2017-06-19 Completed Memoria l vaccine<sup>2</sup> 20:59:00 Dayanna nn hepatitis B adult 2017-06-19 Completed Memoria l vaccine<sup>2</sup> 20:59:00 Dayanna nn hepatitis B adult 2017-06-19 Completed Memoria l vaccine<sup>2</sup> 20:59:00 Dayanna nn hepatitis B adult 2016-11-13 Completed Memoria l vaccine 14:55:00 Mukund hepatitis B adult 2016-11-13 Completed Memoria l vaccine 14:55:00 [place] hepatitis B adult 2016-11-13 Completed Memoria l vaccine 14:55:00 Mukund hepatitis B adult 2016-11-13 Completed Memoria l vaccine 14:55:00 Mukund Vital Signs Vital Name Observation Time Observation Value Comments Source Systolic blood 2023-04-28 15:05:00 159 mm[Hg] Univer sity of pressure [facility] [place] Diastolic blood 2023-04-28 15:05:00 101 mm[Hg] Unive rsity of [facility] Heart rate 2023-04-28 15:05:00 94 /min [facility] Body temperature 2023-04-28 15:05:00 36.67 Erika [facility] Res[facility] rate 2023-04-28 15:05:00 17 /min [facility] Body height 2023-04-28 15:05:00 177.8 cm [facility] Body weight 2023-04-28 15:05:00 92.562 kg [facility] BMI 2023-04-28 15:05:00 29.28 kg/m2 [facility] Oxygen saturation in 2023-04-28 15:05:00 97 /min [facility] Arterial blood by [facility] Pulse oximetry Branch Systolic blood 2022-10-02 23:57:00 148 mm[Hg] Univer sity of pressure [facility] [place] Diastolic blood 2022-10-02 23:57:00 80 mm[Hg] Unive rsity of pressure [facility] [place] Heart rate 2022-10-02 23:56:00 102 /min [facility] Body temperature 2022-10-02 23:56:00 37.11 Erika [facility] Respiratory rate 2022-10-02 23:56:00 18 /min [facility] [place] Body height 2022-10-02 23:56:00 177.8 cm [facility] [place] [facility] Body weight 2022-10-02 23:56:00 94.575 kg [facility] [place] [facility] BMI 2022-10-02 23:56:00 29.92 kg/m2 [facility] [place] [facility] Oxygen saturation in 2022-10-02 23:56:00 97 /min [facility] of Arterial blood by [facility] Pulse oximetry Branch Systolic blood 2021-12-24 19:34:00 122 mm[Hg] Univer sity of pressure [place] [facility] Diastolic blood 2021-12-24 19:34:00 72 mm[Hg] Unive rsity of pressure [place] [facility] Heart rate 2021-12-24 19:34:00 65 /min [facility] [place] [facility] Body temperature 2021-12-24 19:34:00 36.78 Erika [facility] [place] [facility] Respiratory rate 2021-12-24 19:34:00 18 /min [facility] [place] [facility] Body height 2021-12-24 19:34:00 177.8 cm [facility] [place] [facility] Body weight 2021-12-24 19:34:00 94.847 kg [facility] [place] [facility] BMI 2021-12-24 19:34:00 30.00 kg/m2 [facility] [place] [facility] Oxygen saturation in 2021-12-24 19:34:00 98 /min [facility] of Arterial blood by [facility] Pulse oximetry Branch Systolic blood 2021-12-19 18:31:00 133 mm[Hg] Univer sity of pressure [place] [facility] Diastolic blood 2021-12-19 18:31:00 78 mm[Hg] Unive rsity of pressure [place] [facility] Heart rate 2021-12-19 18:26:00 90 /min [facility] [place] [facility] Body temperature 2021-12-19 18:26:00 36.94 Erika [facility] [place] [facility] Respiratory rate 2021-12-19 18:26:00 18 /min [facility] [place] [facility] Body height 2021-12-19 18:26:00 177.8 cm [facility] [place] [facility] Body weight 2021-12-19 18:26:00 95.119 kg [facility] [place] [facility] BMI 2021-12-19 18:26:00 30.09 kg/m2 [facility] [place] [facility] Oxygen saturation in 2021-12-19 18:26:00 97 /min University Arterial blood by [facility] Pulse oximetry Branch Weight 2021-11-20 20:00:00 [facility] [place] Height 2021-11-20 20:00:00 [facility] [place] Temperature Oral (F) 2021-11-20 20:00:00 99.7 F [facility] [place] Heart Rate 2021-11-20 20:00:00 [facility] [place] Diastolic (mm Hg) 2021-11-20 20:00:00 Mem orial [place] Systolic (mm Hg) 2021-11-20 20:00:00 Ketan rial [place] Weight 2020-12-09 15:30:00 [facility] [place] Height 2020-12-09 15:30:00 [facility] [place] Temperature Oral (F) 2020-12-09 15:30:00 97.9 F [facility] [place] Heart Rate 2020-12-09 15:30:00 [facility] [place] Diastolic (mm Hg) 2020-12-09 15:30:00 Mem orial [place] Systolic (mm Hg) 2020-12-09 15:30:00 Ketan rial [place] Systolic (mm Hg) 2020-10-06 17:47:00 Ketan rial [place] Diastolic (mm Hg) 2020-10-06 17:47:00 Mem orial [place] Heart Rate 2020-10-06 17:47:00 [facility] [place] Height 2020-10-06 17:47:00 177.8 cm [facility] [place] Weight 2020-10-06 17:47:00 [facility] [place] BMI Calculated 2020-10-06 17:47:00 Memori al [place] Systolic (mm Hg) 2020-09-30 21:38:00 Ketan rial [place] Diastolic (mm Hg) 2020-09-30 21:38:00 Mem orial [place] Heart Rate 2020-09-30 21:38:00 [facility] [place] Temperature Oral (F) 2020-09-30 21:38:00 98.9 F [facility] Mkuund Heart Rate 2020-09-30 14:09:00 [facility] [place] Temperature Oral (F) 2020-09-30 14:09:00 99.4 F [facility] [place] Systolic (mm Hg) 2020-09-30 14:09:00 Ketan rial [place] Diastolic (mm Hg) 2020-09-30 14:09:00 Mem orial [place] Temperature Oral (F) 2020-09-30 05:57:00 99.6 F [facility] [place] Heart Rate 2020-09-30 05:57:00 [facility] [place] Systolic (mm Hg) 2020-09-30 05:57:00 Ketan rial [place] Diastolic (mm Hg) 2020-09-30 05:57:00 Mem orial [place] Respitory Rate 2020-09-29 05:00:00 Memori al [place] Respitory Rate 2020-09-28 21:29:00 Memori al Mu[place]nd Height 2020-09-28 19:13:00 177.8 cm [facility] [place] Weight 2020-09-28 19:13:00 [facility] [place] BMI Calculated 2020-09-28 19:13:00 Memori al [place] Respitory Rate 2020-09-28 18:00:00 Memori al [place] Height 2020-09-26 15:31:00 177.8 cm [facility] [place] Weight 2020-09-26 15:31:00 [facility] [place] BMI Calculated 2020-09-26 15:31:00 Memori al [place] Systolic (mm Hg) 2020-09-02 19:09:00 Ketan rial [place] Diastolic (mm Hg) 2020-09-02 19:09:00 Mem orial [place] Heart Rate 2020-09-02 19:09:00 [facility] [place] Height 2020-09-02 19:09:00 177.8 cm [facility] [place] Weight 2020-09-02 19:09:00 [facility] [place] BMI Calculated 2020-09-02 19:09:00 Memori al [place] Weight 2020-06-01 21:30:00 [facility] [place] Height 2020-06-01 21:30:00 [facility] [place] Systolic (mm Hg) 2020-06-01 21:30:00 Ketan rial [place] Height 2020-04-12 16:48:00 177.8 cm [facility] [place] Weight 2020-04-12 16:48:00 [facility] [place] BMI Calculated 2020-04-12 16:48:00 Memori al [place] Weight 2020-03-28 19:45:00 [facility] [place] Height 2020-03-28 19:45:00 [facility] [place] Weight 2019-09-01 16:45:00 [facility] [place] Height 2019-09-01 16:45:00 [facility] [place] Temperature Oral (F) 2019-09-01 16:45:00 98.4 F [facility] [place] Heart Rate 2019-09-01 16:45:00 [facility] [place] Diastolic (mm Hg) 2019-09-01 16:45:00 Mem orial [place] Systolic (mm Hg) 2019-09-01 16:45:00 Ketan rial [place] Weight 2019-02-17 15:30:00 [facility] [place] Height 2019-02-17 15:30:00 [facility] [place] Temperature Oral (F) 2019-02-17 15:30:00 97.2 F [facility] [place] Heart Rate 2019-02-17 15:30:00 [facility] [place] Diastolic (mm Hg) 2019-02-17 15:30:00 Mem orial [place] Systolic (mm Hg) 2019-02-17 15:30:00 Ketan rial [place] Systolic (mm Hg) 2018-04-07 16:43:00 Ketan rial [place] Diastolic (mm Hg) 2018-04-07 16:43:00 Mem orial [place] Height 2018-04-07 16:27:00 177.8 cm [facility] [place] BMI Calculated 2018-04-07 16:27:00 Memori al [place] Weight 2018-04-07 16:27:00 [facility] [place] Systolic (mm Hg) 2018-04-07 16:27:00 Ketan rial [place] Diastolic (mm Hg) 2018-04-07 16:27:00 Mem orial [place] Respitory Rate 2018-04-07 16:27:00 Memori al [place] Heart Rate 2018-04-07 16:27:00 [facility] [place] Systolic (mm Hg) 2017-11-29 15:19:00 Ketan rial [place] Diastolic (mm Hg) 2017-11-29 15:19:00 Mem orial [place] BMI Calculated 2017-11-29 15:12:00 Memori al [place] Systolic (mm Hg) 2017-11-29 15:12:00 Ketan rial [place] Diastolic (mm Hg) 2017-11-29 15:12:00 Mem orial [place] Heart Rate 2017-11-29 15:12:00 [facility] [place] Temperature Oral (F) 2017-11-29 15:12:00 98.3 F [facility] [place] Height 2017-11-29 15:12:00 177[facility]8 [facility] 2017-11-29 15:12:00 [facility] Procedures Procedure Date / Time Performing Clinician Source Performed ASSIGNMENT OF BENEFITS 2023-04-28 14:50:53 [facility] 3 VW RIGHT 2022-10-03 00:39:00 Mesha Pickett y [facility] ASSIGNMENT OF BENEFITS 2021-12-24 19:24:56 [facility] Esophagogast[facility]odenoscopy 2019-09-30 00:00:00 [facility] 2007-09-30 06:00:00 [facility] ermann Operation<sup>1</sup> [facility] [facility] Encounters Start End Encounter Admission Attending Care Care Encounter Source Date/Time Date/Time Type Type Clinicians Facility Department ID 2023-04-28 2023-04-28 Outpatient R BENSON [facility] [id number] Univers 10:00[facility]00 [facility]08[facility]23-04-28 2023-04-28 Nurse Nurse, [facility] 1.2.840.114 [id number] Univers 10:00:00 10:08:20 [id number] [id number] [place] as MARCO A?BLEA [id number] [address] MEDICAL OFFICE BUILDING 2023-04-28 2023-04-28 Outpatient R RANJAN [facility] [id number] Univers 10:00:00 10:00:00 ATTENDING itemperatriz [facility] 2023-04-28 2023-04-28 Orders Doctor BENSON 1.2.840.114 [id number] Univers 00:00:00 00:00:00 Only UnassignedMARICHUY [id number] ity of [place] [facility] [id number] Gilbert as [id number] [address] 2022-10-03 2022-10-03 Telephone [facility] [id number] Univers 00:00:00 00:00:00 Mesha HEALTH [id number] it y of [place] [id number] Gilbert as MARCO A?BLEA [phone] [facility] [address] [facility] OFFICE [facility] 2022-10-02 2022-10-02 [facility] [id number] Univers 18:25:45 23:59:00 MESHA ity [facility] 2022-10-02 2022-10-02 [facility] 1.2.840.114 [id number] Univers 18:25:45 23:59:00 Encounter Mesha HEALTH [id number] ity of [place] 4.2.7.2.686 Gilbert as MARCO A?BLEA [id number] Ma leonard RUANO [address] [facility] OFFICE [facility] 2022-10-02 2022-10-02 [facility] 1.2.840.114 [id number] Univers 17:40:00 18:35:24 Care [facility]ly [facility], [facility], [facility] [id number] ity of [place] 4.2.7.2.686 Gilbert as MARCO A?BLEA [phone] [address] OFFICE [facility] 2022-01-30 2022-01-30 Outpatient [facility] [id number] eClinic 08:11:00 08:11:00 Integrati Integr[facility] alWorks ve Family Family Medcine Medcine 2021-12-25 2021-12-25 Outpatient [facility] [id number] eClinic 08:00:00 08:00:00 Integrati Integrative alWorks ve Family Family Medcine Medcine 2021-12-24 2021-12-24 Outpatient R AMINA [facility] [id number] Univers 14:40:00 15:06:21 DIMAS shaun [facility] 2021-12-24 2021-12-24 Urgent Dimas Huynh [facility] 1.2.840.11 [id number] Univers 14:40:00 15:06:21 Care Green, [facility] [id number] ity of [place] 4.2.7.2.686 Gilbert as MARCO A?BLEA [id number] Me dical GEO [address] [place] MEDICAL OFFICE BUILDING 2021-12-24 2021-12-24 Orders Doctor KELLEY 1.2.840.114 [id number] Univers 00:00:00 00:00:00 Only Unassigned, MARICHUY [id number] ity of [place] [facility] 4.2.7.2.686 [place] as [id number] [address] 2021-12-19 2021-12-19 Urgent [facility] 1.2.840.114 [id number] Univers 14:40:00 14:40:00 Care [facility] [address] [id number] i ty of [place] 4.2.7.2.686 [place] as MARCO A?BLEA [phone] Me leonard [address] MEDICAL OFFICE [facility] 2021-12-19 2021-12-19 Outpatient [facility] [id number] Univers 14:40:00 13:48:05 GENIE ity o f [facility] 2021-11-20 2021-11-20 Outpatient [facility] [id number] eClinic 14:00:00 14:00:00 Integrati Integrative alWorks ve Family Family Medcine Medcine 2021-01-11 2021-01-11 Outpatient [facility] [id number] eClinic 08:24:00 08:24:00 Integrati Integrative alWorks ve Family Family Medcine Medcine 2020-12-14 2020-12-14 Outpatient [facility] [id number] eClinic 20:36:00 20:36:00 Integrati Integrative alWorks ve Family Family Medcine Medcine 2020-12-09 2020-12-09 Outpatient [facility] [id number] eClinic 09:30:00 09:30:00 Integrati Integrative alWorks ve Family Family Medcine Medcine 2020-12-01 2020-12-01 Outpatient [facility] [id number] eClinic 11:27:00 11:27:00 Integrati Integrative alWorks ve Family Family Medcine Medcine 2020-11-10 2020-11-10 Outpatient [facility] [id number] eClinic 09:51:00 09:51:00 Integrati Integrative alWorks ve Family Family Medcine Medcine 2020-10-06 2020-10-07 [place] [id number] Memoria 17:00:00 05:59:59 r General 16 [facility] 2020-10-06 2020-10-07 [place] [id number] Memoria 17:00:00 05:59:59 r General 16 [facility] 2020-10-06 2020-10-06 [place] [id number] 11:00:00 23:59:59 [place] [address] 2020-10-06 2020-10-06 Outpatient MHIE MHIE [id number] Memoria 11:00:00 11:00:00 16 [facility] 2020-09-28 2020-09-30 Inpatient nullFlavo [facility] [id number] Memoria 11:24:00 23:09:[address] 2020-09-28 2020-09-30 Inpatient nullFlavo [facility] [id number] Memoria 11:24:00 23:09:[address] 2020-09-28 2020-09-30 Inpatient SHEEBA VAIL MHSE MHSE [id number] MH 05:24:00 17:09:00 [facility] 2020-09-28 2020-09-30 Outpatient Sheeba Vail MHSE MHSE [id number] 05:24:00 17:09:00 [facility] 2020-09-28 2020-09-30 Outpatient Sheeba Vail MHSE MHSE [id number] 05:24:00 17:09:00 [facility] 2020-09-28 2020-09-28 Outpatient MHIE MHIE [id number] Memoria 07:30:00 07:30:00 15 [facility] 2020-09-28 2020-09-28 Outpatient MHIE MHIE [id number] Memoria 07:30:00 07:30:00 15 [facility] 2020-09-21 2020-09-21 Outpatient [facility] [id number] eClinic 13:38:00 13:38:00 Integrati Integrative alWorks ve [facility] Medcine Medcine 2020-09-02 2020-09-03 [place] [id number] Memoria 15:00:00 05:59:59 r General 14 l Surgery [facility] 2020-09-02 2020-09-03 Outpatient nullFlavo [facility] [id number] Memoria 15:00:00 05:59:59 r General 14 l Surgery [facility] 2020-09-02 2020-09-02 Outpatient Sheeba Vail [facility] [id number] 09:00:00 23:59:59 Melba 14 2020-09-02 2020-09-02 Outpatient MHIE MHIE [id number] Memoria 09:00:00 09:00:00 14 l [place] 2020-07-19 2020-07-19 Outpatient [facility] [id number] eClinic 15:03:00 15:03:00 Integrati Integrative alWorks ve Family Family Medcine Medcine 2020-06-01 2020-06-01 Outpatient [facility] [id number] eClinic 16:30:00 16:30:00 Integrati Integrative alWorks ve Family Family Medcine Medcine 2020-03-22 2020-05-20 Inpatient Ott, HCACL ENDO [id number] [facility] 13:30:00 21:41:14 [facility] 2020-04-23 2020-04-23 Outpatient [facility] [id number] eClinic 08:45:00 08:45:00 Integrati Integrative alWorks ve Family Family Medcine Medcine 2020-04-12 2020-04-13 Outpatient nullFlavo [facility] [id number] Memoria 16:45:00 04:59:59 r General 13 l Surgery [facility] 2020-04-12 2020-04-13 Outpatient nullFlavo [facility] [id number] Memoria 16:45:00 04:59:59 r General 13 l Surgery [facility] 2020-04-12 2020-04-12 Outpatient Sheeba Vail [facility] [id number] 11:45:00 23:59:59 [facility] 13 2020-04-12 2020-04-12 Outpatient MHIE MHIE [id number] Memoria 11:45:00 11:45:00 13 l [place] 2020-04-05 2020-04-11 Inpatient Ott, HCACL ENDO [id number] [facility] 15:00:00 20:55:13 [facility] 2020-03-28 2020-03-28 Outpatient [facility] [id number] eClinic 14:45:00 14:45:00 Integrati Integrative alWorks ve Family Family Medcine Medcine 2020-02-29 2020-03-22 Inpatient EL Meerasahib, HCACL IVF [id number] [facility] 00:07:00 14:31:44 Jn 95 [facility] 2020-03-14 2020-03-14 Outpatient [facility] [id number] eClinic 11:16:00 11:16:00 Integrati Integrative alWorks ve Family Family Medcine Medcine 2020-02-24 2020-02-24 Outpatient [facility] [id number] eClinic 22:03:00 22:03:00 Integrati Integrative alWorks ve Family Family Medcine Medcine 2020-02-24 2020-02-24 Outpatient EL Meerasahib, HCACL IVF [id number] [facility] 14:57:00 14:57:00 Jn 81 [facility] 2020-02-24 2020-02-24 Outpatient [facility] [id number] eClinic 09:07:00 09:07:00 Integrati Integrative alWorks ve Family Family Medcine Medcine 2020-02-23 2020-02-23 Outpatient [facility] [id number] eClinic 14:45:00 14:45:00 Integrati Integrative alWorks ve Family Family Medcine Medcine 2019-09-02 2019-09-02 Outpatient [facility] [id number] eClinic 18:01:00 18:01:00 Integrati Integrative alWorks ve Family Family Medcine Medcine 2019-09-01 2019-09-01 Outpatient [facility] [id number] eClinic 10:45:00 10:45:00 Integrati Integrative alWorks ve Family Family Medcine Medcine 2019-06-30 2019-06-30 Outpatient [facility] [id number] eClinic 13:01:00 13:01:00 Integrati Integrative alWorks ve Family Family Medcine Medcine 2019-03-26 2019-03-26 Outpatient [facility] [id number] eClinic 10:43:00 10:43:00 Integrati Integrative alWorks ve Family Family Medcine Medcine 2019-03-12 2019-03-12 Outpatient [facility] [id number] eClinic 15:47:00 15:47:00 Integrati Integrative alWorks ve Family Family Medcine Medcine 2019-02-25 2019-02-25 Outpatient [facility] [id number] eClinic 17:25:00 17:25:00 Integrati Integrative alWorks ve Family Family Medcine Medcine 2019-02-17 2019-02-17 Outpatient [facility] [id number] eClinic 10:30:00 10:30:00 Integrati Integrative alWorks ve Family Family Medcine Medcine 2018-11-11 2018-11-13 Phone nullFlavo MG [id number] Memoria 14:43:00 05:59:59 Message r Primary 03 [facility] 2018-11-11 2018-11-13 Phone nullFlavo MG [id number] Memoria 14:43:00 05:59:59 Message r Primary 03 [facility] 2018-11-11 2018-11-12 Outpatient MHMG MG [id number] 08:43:00 23:59:59 2018-04-07 2018-04-08 [place] [id number] Memoria 16:30:00 04:59:59 r Primary 12 [facility] 2018-04-07 2018-04-08 [place] [id number] Memoria 16:30:00 04:59:59 r Primary 12 [facility] 2018-04-07 2018-04-07 Outpatient Banglawala, MG MG [id number] 11:30:00 23:59:59 Khursheed 2018-04-07 2018-04-07 Outpatient MHIE IE [id number] Memoria 11:30:00 11:30:[address] [place] [address] 2017-12-06 2017-12-08 Phone nullFlavo MG [id number] Memoria 13:34:00 05:59:59 Message r Primary 02 [facility] 2017-12-06 2017-12-08 Phone nullFlavo MG [id number] Memoria 13:34:00 05:59:59 Message r Primary 02 [facility] 2017-12-06 2017-12-07 Outpatient MHMG MG [id number] 07:34:00 23:59:59 2017-11-29 2017-11-30 [place] [id number] Memoria 15:15:00 05:59:59 r Primary 11 [facility] 2017-11-29 2017-11-30 [place] [id number] Memoria 15:15:00 05:59:59 r Primary 11 [facility] 2017-11-29 2017-11-29 Outpatient Jerrod, MG MG [id number] 09:15:00 23:59:59 Rosieursheed 11 2017-11-29 2017-11-29 Outpatient MHIE MHIE [id number] Memoria 09:15:00 09:15:00 11 [facility] 2017-11-27 2017-11-29 Phone nullFlavo MG [id number] Memoria 21:29:00 05:59:59 Message r Primary 01 [facility] 2017-11-27 2017-11-29 Phone nullFlavo MG [id number] Memoria 21:29:00 05:59:59 Message r Primary 01 [facility] 2017-11-27 2017-11-28 Outpatient MHMG MG [id number] 15:29:00 23:59:59 2017-10-28 2017-10-28 [place] [id number] Memoria 15:00:00 15:00:00 Pre-Reg r Primary 10 [facility] 2017-10-28 2017-10-28 [place] [id number] Memoria 15:00:00 15:00:00 Pre-Reg r Primary 10 [facility] 2017-10-28 2017-10-28 Outpatient MHIE IE [id number] Memoria 09:00:00 09:00:00 10 [facility] 2017-10-28 2017-10-28 Outpatient Jerrod, MG MG [id number] 09:00:00 09:00:00 Rosieursheed 10 2017-09-13 2017-09-13 [place] [id number] Memoria 14:30:00 14:30:00 Pre-Reg r Primary 07 [facility] 2017-09-13 2017-09-13 [place] [id number] Memoria 14:30:00 14:30:00 Pre-Reg r Primary 07 [facility] 2017-09-13 2017-09-13 Outpatient MHIE MHIE [id number] Memoria 08:30:00 08:30:00 07 shakila [place] 2017-09-13 2017-09-13 Outpatient Jerrod, MG MG [id number] 08:30:00 08:30:00 Khursheed 2017-09-12 2017-09-12 [place] [id number] Memoria 15:00:00 15:00:00 Pre-Reg r Primary 09 [facility] 2017-09-12 2017-09-12 Ambulatory nullFlavo MHMG [id number] Memoria 15:00:00 15:00:00 Pre-Reg r Primary 09 [facility] 2017-09-12 2017-09-12 Outpatient MHIE MHIE [id number] Memoria 09:00:00 09:00:00 09 [facility] 2017-09-12 2017-09-12 Outpatient Jerrod, MG MG [id number] 09:00:00 09:00:00 Khursheed 2017-08-14 2017-08-14 [place] [id number] Memoria 22:00:00 22:00:00 Pre-Reg r Primary 08 [facility] 2017-08-14 2017-08-14 [place] [id number] Memoria 22:00:00 22:00:00 Pre-Reg r Primary 08 [facility] 2017-08-14 2017-08-14 Outpatient MHIE MHIE [id number] Memoria 16:00:00 16:00:00 08 [facility] 2017-08-14 2017-08-14 Outpatient Jerrod, MG MG [id number] 16:00:00 16:00:00 Khursheed 2017-08-08 2017-08-08 Outpatient MHIE MHIE [id number] Memoria 08:15:00 08:15:00 06 shakila BelleMukund 2017-08-08 2017-08-08 Outpatient MHIE MHIE [id number] Memoria 08:15:00 08:15:00 06 shakila BelleOssian 2017-06-19 2017-06-19 Outpatient IE IE [id number] Memoria 15:15:00 15:15:00 05 shakila [place] 2017-06-19 2017-06-19 Outpatient IE IE [id number] Memoria 15:15:00 15:15:00 05 shakila Duval 2017-05-31 2017-05-31 Outpatient IE IE [id number] Memoria 09:00:00 09:00:00 04 shakila Duval 2017-05-31 2017-05-31 Outpatient IE IE [id number] Memoria 09:00:00 09:00:00 04 shakila BelleMukund 2017-03-28 2017-03-28 Outpatient IE IE [id number] Memoria 15:00:00 15:00:00 03 shakila Mukund 2017-03-28 2017-03-28 Outpatient IE IE [id number] Memoria 15:00:00 15:00:00 03 shakila [place] 2016-11-13 2016-11-13 Outpatient [facility] [id number] Memoria 08:00:00 08:00:00 02 shakila BelleMukund 2016-11-13 2016-11-13 Outpatient [facility] [id number] Memoria 08:00:00 08:00:00 02 shakila BelleMukund Results Test Description Test Time Test Comments Results Result Comments Source CHEM [facility] 2020-09-29 10:59:00 Test Item Value Reference Range Interpretation Comme nts Glucose Lvl (test code = Glucose Lvl) 151 70-99 [facility] [employer] [facility] [id number] 10:59:00 Test Item Value Reference Range Interpretation Comments BUN (test code = BUN) 23 7-22 [facility] [facility] [id number] 10:59:00 Test Item Value Reference Range Interpretation Comments Creatinine Lvl (test code = Creatinine 1.61 0.50-1.40 Lvl) [facility] [employer] [facility] [id number] 10:59:00 Test Item Value Reference Range Interpretation Comments Sodium Lvl (test code = Sodium Lvl) 146 135-145 [facility] [employer] [id number] 10:59:00 Test Item Value Reference Range Interpretation Comments Potassium Lvl (test code = Potassium 4.1 3.5-5.1 Lvl) [facility] [employer] [id number] 10:59:00 Test Item Value Reference Range Interpretation Comments Chloride Lvl (test code = Chloride Lvl) 115 95-109 [facility] [employer] [id number] 10:59:00 Test Item Value Reference Range Interpretation Comments CO2 (test code = CO2) 26 24-32 [facility] HereQUORUM [id number] 10:59:00 Test Item Value Reference Range Interpretation Comments Calcium Lvl (test code = Calcium Lvl) 8.6 8.5-10.5 [facility] [employer] [id number] 10:59:00 Test Item Value Reference Range Interpretation Comments Total Protein (test code = Total 6.8 6.4-8.4 Protein) [facility] [employer] [id number] 10:59:00 Test Item Value Reference Range Interpretation Comments Albumin Lvl (test code = Albumin Lvl) 3.2 3.5-5.0 [facility] [employer] [id number] 10:59:00 Test Item Value Reference Range Interpretation Comments ALT (test code = ALT) 49 See_Comment [Auto mated message] The system which ge nerated this result transmit misael reference range : <=65. The reference range was not used to interpr et this result as bobby l/abnormal. [facility] [employer] [id number] 10:59:00 Test Item Value Reference Range Interpretation Comments AST (test code = AST) 30 See_Comment [Auto mated message] The system which ge nerated this result transmit misael reference range : <=37. The reference range was not used to interpr et this result as bobby l/abnormal. [facility] [employer] [id number] 10:59:00 Test Item Value Reference Range Interpretation Comments Alk Phos (test code = Alk Phos) 62 39-136 [facility] [employer] [id number] 10:59:00 Test Item Value Reference Range Interpretation Comments Bili Total (test code = Bili Total) 0.4 0.2-1.3 [facility] [employer] [id number] 10:59:00 Test Item Value Reference Range Interpretation Comments AGAP (test code = AGAP) 9.1 10.0-20.0 [facility] [employer] [id number] 10:59:00 Test Item Value Reference Range Interpretation Comments B/C Ratio (test code = B/C Ratio) 14 1 6-25 [facility] [id number] 10:59:00 Test Item Value Reference Range Interpretation Comments Globulin (test code = Globulin) 3.6 2.7-4.2 [facility] [id number] 10:59:00 Test Item Value Reference Range Interpretation Comments A/G Ratio (test code = A/G Ratio) 0.9 1 0.7-1.6 [facility]2020-12-31 10:59:00 Test Item Value Reference Range Interpretation Comments eGFR (test code = eGFR) 55 [id number] 10:59:00 Test Item Value Reference Range Interpretation Comments WBC (test code = WBC) 13.5 3.7-10.4 [facility] H[id number] 10:59:00 Test Item Value Reference Range Interpretation Comments RBC (test code = RBC) 4.12 4.70-6.10 [facility] [id number] 10:59:00 Test Item Value Reference Range Interpretation Comments Hgb (test code = Hgb) 11.5 14.0-18.0 [facility] [id number] 10:59:00 Test Item Value Reference Range Interpretation Comments Hct (test code = Hct) 35.9 42.0-54.0 [facility] [id number] 10:59:00 Test Item Value Reference Range Interpretation Comments MCV (test code = MCV) 87.1 80.0-94.0 [facility] HospitalYuhhzuoVMXPGQGNSZ0790-64-70 10:59:00 Test Item Value Reference Range Interpretation Comments MCH (test code = MCH) 27.9 pg 27.0-31.0 [place] [id number] 10:59:00 Test Item Value Reference Range Interpretation Comments MCHC (test code = MCHC) 32.0 32.0-36.0 [facility] [id number] 10:59:00 Test Item Value Reference Range Interpretation Comments RDW (test code = RDW) 13.9 11.5-14.5 [facility] [id number] 10:59:00 Test Item Value Reference Range Interpretation Comments Platelet (test code = Platelet) 222 133-450 [place] [id number] 10:59:00 Test Item Value Reference Range Interpretation Comments MPV (test code = MPV) 10.4 7.4-10.4 [place] [id number] 10:59:00 Test Item Value Reference Range Interpretation Comments Segs (test code = Segs) 81.1 45.0-75.0 [place] [id number] 10:59:00 Test Item Value Reference Range Interpretation Comments Lymphocytes (test code = Lymphocytes) 9.5 20.0-40.0 [place] [id number] 10:59:00 Test Item Value Reference Range Interpretation Comments Monocytes (test code = Monocytes) 9.3 2.0-12.0 [place] [id number] 10:59:00 Test Item Value Reference Range Interpretation Comments Basophils (test code = 0.1 See_Comment [Aut omated message] The Basophils) system which ge nerated this result tra nsmitted reference range : <=1.0. The reference r nena was not used to int erpret this result as normal/abnormal . [facility] [id number] 10:59:00 Test Item Value Reference Range Interpretation Comments Neutrophils # (test code = Neutrophils 11.0 1.5-8.1 #) [facility] H[id number] 10:59:00 Test Item Value Reference Range Interpretation Comments Lymphocytes # (test code = Lymphocytes 1.3 1.0-5.5 #) [facility] HospitalYslqljxGEUGAQFDFY0532-29-44 10:59:00 Test Item Value Reference Range Interpretation Comments Monocytes # (test code 1.3 See_Comment [Aut omated message] The = Monocytes #) system which generated this result tra nsmitted reference range : <=0.8. The reference r nena was not used to int erpret this result as normal/abnormal . [place] 206110-12-31 10:59:00 Test Item Value Reference Range Interpretation Comments Glucose Lvl (test code = Glucose Lvl) 151 70-99 [facility]2020-12-31 10:59:00 Test Item Value Reference Range Interpretation Comments BUN (test code = BUN) 23 7-22 [place] 206110-12-31 10:59:00 Test Item Value Reference Range Interpretation Comments Creatinine Lvl (test code = Creatinine 1.61 0.50-1.40 Lvl) [place] 206110-12-31 10:59:00 Test Item Value Reference Range Interpretation Comments Sodium Lvl (test code = Sodium Lvl) 146 135-145 [place] 206110-12-31 10:59:00 Test Item Value Reference Range Interpretation Comments Potassium Lvl (test code = Potassium 4.1 3.5-5.1 Lvl) [place] 206110-12-31 10:59:00 Test Item Value Reference Range Interpretation Comments Chloride Lvl (test code = Chloride Lvl) 115 95-109 [place] [address]-12-31 10:59:00 Test Item Value Reference Range Interpretation Comments CO2 (test code = CO2) 26 24-32 [place] 206110-12-31 10:59:00 Test Item Value Reference Range Interpretation Comments Calcium Lvl (test code = Calcium Lvl) 8.6 8.5-10.5 [place] 206110-12-31 10:59:00 Test Item Value Reference Range Interpretation Comments Total Protein (test code = Total 6.8 6.4-8.4 Protein) [place] 206110-12-31 10:59:00 Test Item Value Reference Range Interpretation Comments Albumin Lvl (test code = Albumin Lvl) 3.2 3.5-5.0 [place] 206110-12-31 10:59:00 Test Item Value Reference Range Interpretation Comments ALT (test code = ALT) 49 See_Comment [Auto mated message] The system which Hstry nerated this result transmit misael reference range : <=65. The reference range was not used to interpr et this result as bobby l/abnormal. [facility] [id number] 10:59:00 Test Item Value Reference Range Interpretation Comments AST (test code = AST) 30 See_Comment [Auto mated message] The system which Hstry nerated this result transmit misael reference range : <=37. The reference range was not used to interpr et this result as bobby l/abnormal. [facility] [id number] 10:59:00 Test Item Value Reference Range Interpretation Comments Alk Phos (test code = Alk Phos) 62 39-136 [facility] [id number] 10:59:00 Test Item Value Reference Range Interpretation Comments Bili Total (test code = Bili Total) 0.4 0.2-1.3 [place] 206110-12-31 10:59:00 Test Item Value Reference Range Interpretation Comments AGAP (test code = AGAP) 9.1 10.0-20.0 [facility]2020-12-31 10:59:00 Test Item Value Reference Range Interpretation Comments B/C Ratio (test code = B/C Ratio) 14 1 6-25 [place] 206110-12-31 10:59:00 Test Item Value Reference Range Interpretation Comments Globulin (test code = Globulin) 3.6 2.7-4.2 [facility]2020-12-31 10:59:00 Test Item Value Reference Range Interpretation Comments A/G Ratio (test code = A/G Ratio) 0.9 1 0.7-1.6 [place] 206110-12-31 10:59:00 Test Item Value Reference Range Interpretation Comments eGFR (test code = eGFR) 55 [facility]QJ[facility]NEK3879[facility]-43 10:59:00 Test Item Value Reference Range Interpretation Comments WBC (test code = WBC) 13.5 3.7-10.4 [place] 708010-12-31 10:59:00 Test Item Value Reference Range Interpretation Comments RBC (test code = RBC) 4.12 4.70-6.10 [place] 708010-12-31 10:59:00 Test Item Value Reference Range Interpretation Comments Hgb (test code = Hgb) 11.5 14.0-18.0 [place] 708010-12-31 10:59:00 Test Item Value Reference Range Interpretation Comments Hct (test code = Hct) 35.9 42.0-54.0 [place] [address]-12-31 10:59:00 Test Item Value Reference Range Interpretation Comments MCV (test code = MCV) 87.1 80.0-94.0 [place] 708010-12-31 10:59:00 Test Item Value Reference Range Interpretation Comments MCH (test code = MCH) 27.9 pg 27.0-31.0 [place] 708010-12-31 10:59:00 Test Item Value Reference Range Interpretation Comments MCHC (test code = MCHC) 32.0 32.0-36.0 [place] 708010-12-31 10:59:00 Test Item Value Reference Range Interpretation Comments RDW (test code = RDW) 13.9 11.5-14.5 [place] 708010-12-31 10:59:00 Test Item Value Reference Range Interpretation Comments Platelet (test code = Platelet) 222 133-450 [facility]KjvlcjeZASQJCSABY5708-75-79 10:59:00 Test Item Value Reference Range Interpretation Comments MPV (test code = MPV) 10.4 7.4-10.4 [place] 708010-12-31 10:59:00 Test Item Value Reference Range Interpretation Comments Segs (test code = Segs) 81.1 45.0-75.0 [place] 708010-12-31 10:59:00 Test Item Value Reference Range Interpretation Comments Lymphocytes (test code = Lymphocytes) 9.5 20.0-40.0 [facility]JngebghEAEEHDQJWK1975-52-66 10:59:00 Test Item Value Reference Range Interpretation Comments Monocytes (test code = Monocytes) 9.3 2.0-12.0 [facility] HospitalMsabndwJNOLJOTFLJ0333-46-58 10:59:00 Test Item Value Reference Range Interpretation Comments Basophils (test code = 0.1 See_Comment [Aut omated message] The Basophils) system which ge nerated this result tra nsmitted reference range : <=1.0. The reference r nena was not used to int erpret this result as normal/abnormal . [facility] HospitalFwnpvpeMLKYVKLEBB8096-85-55 10:59:00 Test Item Value Reference Range Interpretation Comments Neutrophils # (test code = Neutrophils 11.0 1.5-8.1 #) [place] 708010-12-31 10:59:00 Test Item Value Reference Range Interpretation Comments Lymphocytes # (test code = Lymphocytes 1.3 1.0-5.5 #) [place] 708010-12-31 10:59:00 Test Item Value Reference Range Interpretation Comments Monocytes # (test code 1.3 See_Comment [Aut omated message] The = Monocytes #) system which generated this result tra nsmitted reference range : <=0.8. The reference r nena was not used to int erpret this result as normal/abnormal . [facility]2020-12-31 10:59:00 Test Item Value Reference Range Interpretation Comments Glucose Lvl (test code = Glucose Lvl) 151 70-99 [place] 206110-12-31 10:59:00 Test Item Value Reference Range Interpretation Comments BUN (test code = BUN) 23 7-22 [place] 206110-12-31 10:59:00 Test Item Value Reference Range Interpretation Comments Creatinine Lvl (test code = Creatinine 1.61 0.50-1.40 Lvl) [place] 206110-12-31 10:59:00 Test Item Value Reference Range Interpretation Comments Sodium Lvl (test code = Sodium Lvl) 146 135-145 [place] 206110-12-31 10:59:00 Test Item Value Reference Range Interpretation Comments Potassium Lvl (test code = Potassium 4.1 3.5-5.1 Lvl) [place] 206110-12-31 10:59:00 Test Item Value Reference Range Interpretation Comments Chloride Lvl (test code = Chloride Lvl) 115 95-109 [place] 206110-12-31 10:59:00 Test Item Value Reference Range Interpretation Comments CO2 (test code = CO2) 26 24-32 [place] 206110-12-31 10:59:00 Test Item Value Reference Range Interpretation Comments Calcium Lvl (test code = Calcium Lvl) 8.6 8.5-10.5 [facility]2020-12-31 10:59:00 Test Item Value Reference Range Interpretation Comments Total Protein (test code = Total 6.8 6.4-8.4 Protein) [place] 206110-12-31 10:59:00 Test Item Value Reference Range Interpretation Comments Albumin Lvl (test code = Albumin Lvl) 3.2 3.5-5.0 [place] 206110-12-31 10:59:00 Test Item Value Reference Range Interpretation Comments ALT (test code = ALT) 49 See_Comment [Auto mated message] The system which ge nerated this result transmit misael reference range : <=65. The reference range was not used to interpr et this result as bobby l/abnormal. [facility] [id number] 10:59:00 Test Item Value Reference Range Interpretation Comments AST (test code = AST) 30 See_Comment [Auto mated message] The system which ge nerated this result transmit misael reference range : <=37. The reference range was not used to interpr et this result as bobby l/abnormal. [facility] [id number] 10:59:00 Test Item Value Reference Range Interpretation Comments Alk Phos (test code = Alk Phos) 62 39-136 [facility]2020-12-31 10:59:00 Test Item Value Reference Range Interpretation Comments Bili Total (test code = Bili Total) 0.4 0.2-1.3 [facility]2020-12-31 10:59:00 Test Item Value Reference Range Interpretation Comments AGAP (test code = AGAP) 9.1 10.0-20.0 [place] 206110-12-31 10:59:00 Test Item Value Reference Range Interpretation Comments B/C Ratio (test code = B/C Ratio) 14 1 6-25 [place] 206110-12-31 10:59:00 Test Item Value Reference Range Interpretation Comments Globulin (test code = Globulin) 3.6 2.7-4.2 [facility] [id number] 10:59:00 Test Item Value Reference Range Interpretation Comments A/G Ratio (test code = A/G Ratio) 0.9 1 0.7-1.6 [place] 206110-12-31 10:59:00 Test Item Value Reference Range Interpretation Comments eGFR (test code = eGFR) 55 [facility] HospitalRjesjepMLHIQUGDUT5614-05-75 10:59:00 Test Item Value Reference Range Interpretation Comments WBC (test code = WBC) 13.5 3.7-10.4 [place] 708010-12-31 10:59:00 Test Item Value Reference Range Interpretation Comments RBC (test code = RBC) 4.12 4.70-6.10 [place] 708010-12-31 10:59:00 Test Item Value Reference Range Interpretation Comments Hgb (test code = Hgb) 11.5 14.0-18.0 [place] 708010-12-31 10:59:00 Test Item Value Reference Range Interpretation Comments Hct (test code = Hct) 35.9 42.0-54.0 [place] 708010-12-31 10:59:00 Test Item Value Reference Range Interpretation Comments MCV (test code = MCV) 87.1 80.0-94.0 [place] 708010-12-31 10:59:00 Test Item Value Reference Range Interpretation Comments MCH (test code = MCH) 27.9 pg 27.0-31.0 [place] 708010-12-31 10:59:00 Test Item Value Reference Range Interpretation Comments MCHC (test code = MCHC) 32.0 32.0-36.0 [place] 708010-12-31 10:59:00 Test Item Value Reference Range Interpretation Comments RDW (test code = RDW) 13.9 11.5-14.5 [place] 708010-12-31 10:59:00 Test Item Value Reference Range Interpretation Comments Platelet (test code = Platelet) 222 133-450 [place] 708010-12-31 10:59:00 Test Item Value Reference Range Interpretation Comments MPV (test code = MPV) 10.4 7.4-10.4 [place] 708010-12-31 10:59:00 Test Item Value Reference Range Interpretation Comments Segs (test code = Segs) 81.1 45.0-75.0 [place] 708010-12-31 10:59:00 Test Item Value Reference Range Interpretation Comments Lymphocytes (test code = Lymphocytes) 9.5 20.0-40.0 [place] 708010-12-31 10:59:00 Test Item Value Reference Range Interpretation Comments Monocytes (test code = Monocytes) 9.3 2.0-12.0 [place] [address]-12-31 10:59:00 Test Item Value Reference Range Interpretation Comments Basophils (test code = 0.1 See_Comment [Aut omated message] The Basophils) system which ge nerated this result tra nsmitted reference range : <=1.0. The reference r nena was not used to int erpret this result as normal/abnormal . [place] 708010-12-31 10:59:00 Test Item Value Reference Range Interpretation Comments Neutrophils # (test code = Neutrophils 11.0 1.5-8.1 #) [facility]FmdxfqlRLZXEKGRSV9979-37-46 10:59:00 Test Item Value Reference Range Interpretation Comments Lymphocytes # (test code = Lymphocytes 1.3 1.0-5.5 #) [facility]XP[facility]83[facility]47[facility]52 10:59:00 Test Item Value Reference Range Interpretation Comments Monocytes # (test code 1.3 See_Comment [Aut omated message] The = Monocytes #) system which generated this result tra nsmitted reference range : <=0.8. The reference r nena was not used to int erpret this result as normal/abnormal . [facility]2020-12-31 10:59:00 Test Item Value Reference Range Interpretation Comments Glucose Lvl (test code = Glucose Lvl) 151 70-99 [facility]2020-12-31 10:59:00 Test Item Value Reference Range Interpretation Comments BUN (test code = BUN) 23 7-22 [facility]2020-12-31 10:59:00 Test Item Value Reference Range Interpretation Comments Creatinine Lvl (test code = Creatinine 1.61 0.50-1.40 Lvl) [facility]2020-12-31 10:59:00 Test Item Value Reference Range Interpretation Comments Sodium Lvl (test code = Sodium Lvl) 146 135-145 [facility]2020-12-31 10:59:00 Test Item Value Reference Range Interpretation Comments Potassium Lvl (test code = Potassium 4.1 3.5-5.1 Lvl) [place] 206110-12-31 10:59:00 Test Item Value Reference Range Interpretation Comments Chloride Lvl (test code = Chloride Lvl) 115 95-109 [facility]2020-12-31 10:59:00 Test Item Value Reference Range Interpretation Comments CO2 (test code = CO2) 26 24-32 [place] 206110-12-31 10:59:00 Test Item Value Reference Range Interpretation Comments Calcium Lvl (test code = Calcium Lvl) 8.6 8.5-10.5 [facility]2020-12-31 10:59:00 Test Item Value Reference Range Interpretation Comments Total Protein (test code = Total 6.8 6.4-8.4 Protein) [facility]2020-12-31 10:59:00 Test Item Value Reference Range Interpretation Comments Albumin Lvl (test code = Albumin Lvl) 3.2 3.5-5.0 [facility] [employer] [id number] 10:59:00 Test Item Value Reference Range Interpretation Comments ALT (test code = ALT) 49 See_Comment [Auto mated message] The system which ge nerated this result transmit misael reference range : <=65. The reference range was not used to interpr et this result as bobby l/abnormal. [facility] [employer] [id number] 10:59:00 Test Item Value Reference Range Interpretation Comments AST (test code = AST) 30 See_Comment [Auto mated message] The system which ge nerated this result transmit misael reference range : <=37. The reference range was not used to interpr et this result as bobby l/abnormal. [facility] [employer] [id number] 10:59:00 Test Item Value Reference Range Interpretation Comments Alk Phos (test code = Alk Phos) 62 39-136 [facility] [employer] [id number] 10:59:00 Test Item Value Reference Range Interpretation Comments Bili Total (test code = Bili Total) 0.4 0.2-1.3 [facility] [employer] [id number] 10:59:00 Test Item Value Reference Range Interpretation Comments AGAP (test code = AGAP) 9.1 10.0-20.0 [facility] [employer] [id number] 10:59:00 Test Item Value Reference Range Interpretation Comments B/C Ratio (test code = B/C Ratio) 14 1 6-25 [facility] [employer] [id number] 10:59:00 Test Item Value Reference Range Interpretation Comments Globulin (test code = Globulin) 3.6 2.7-4.2 [facility] [employer] [id number] 10:59:00 Test Item Value Reference Range Interpretation Comments A/G Ratio (test code = A/G Ratio) 0.9 1 0.7-1.6 [facility] [employer] [id number] 10:59:00 Test Item Value Reference Range Interpretation Comments eGFR (test code = eGFR) 55 [facility] HospitalQusspawAHRXJYYQPT7436-87-95 10:59:00 Test Item Value Reference Range Interpretation Comments WBC (test code = WBC) 13.5 3.7-10.4 [facility] HospitalPvcjimaMAHFIGUUIW0816-97-52 10:59:00 Test Item Value Reference Range Interpretation Comments RBC (test code = RBC) 4.12 4.70-6.10 [facility] HospitalSuadubkWWZRXOLNYK6294-68-92 10:59:00 Test Item Value Reference Range Interpretation Comments Hgb (test code = Hgb) 11.5 14.0-18.0 [place] 708010-12-31 10:59:00 Test Item Value Reference Range Interpretation Comments Hct (test code = Hct) 35.9 42.0-54.0 [facility] HospitalUzktcllDFHMXJTZMS5785-18-12 10:59:00 Test Item Value Reference Range Interpretation Comments MCV (test code = MCV) 87.1 80.0-94.0 [facility] HospitalAgpriisSWUBYEXXTU0667-03-25 10:59:00 Test Item Value Reference Range Interpretation Comments MCH (test code = MCH) 27.9 pg 27.0-31.0 [facility] HospitalXjaigguMTWCAFLKYC5141-35-28 10:59:00 Test Item Value Reference Range Interpretation Comments MCHC (test code = MCHC) 32.0 32.0-36.0 [facility] HospitalNrschueICNSPGQLDZ9528-52-61 10:59:00 Test Item Value Reference Range Interpretation Comments RDW (test code = RDW) 13.9 11.5-14.5 [facility] HospitalAimctzbJDFQVDRYPI2743-04-02 10:59:00 Test Item Value Reference Range Interpretation Comments Platelet (test code = Platelet) 222 133-450 [facility] HospitalYunqyomWUIPRALUOQ7281-86-54 10:59:00 Test Item Value Reference Range Interpretation Comments MPV (test code = MPV) 10.4 7.4-10.4 [facility] HospitalAijcxzeSDMLCQQPMI7270-17-30 10:59:00 Test Item Value Reference Range Interpretation Comments Segs (test code = Segs) 81.1 45.0-75.0 [facility] HospitalWcrhjfdWVYNOLCVMX5945-62-77 10:59:00 Test Item Value Reference Range Interpretation Comments Lymphocytes (test code = Lymphocytes) 9.5 20.0-40.0 [place] 708010-12-31 10:59:00 Test Item Value Reference Range Interpretation Comments Monocytes (test code = Monocytes) 9.3 2.0-12.0 [place] 708010-12-31 10:59:00 Test Item Value Reference Range Interpretation Comments Basophils (test code = 0.1 See_Comment [Aut omated message] The Basophils) system which ge nerated this result tra nsmitted reference range : <=1.0. The reference r nena was not used to int erpret this result as normal/abnormal . [facility] HospitalZvdiyofKINHPZYMHV9308-01-44 10:59:00 Test Item Value Reference Range Interpretation Comments Neutrophils # (test code = Neutrophils 11.0 1.5-8.1 #) [facility] HospitalIhwzlzsRPBOZPWIZA7817-44-43 10:59:00 Test Item Value Reference Range Interpretation Comments Lymphocytes # (test code = Lymphocytes 1.3 1.0-5.5 #) [facility] HospitalOacbfvfOGPHUZWQNR6097-36-74 10:59:00 Test Item Value Reference Range Interpretation Comments Monocytes # (test code 1.3 See_Comment [Aut omated message] The = Monocytes #) system which generated this result tra nsmitted reference range : <=0.8. The reference r nena was not used to int erpret this result as normal/abnormal . [facility] PasoBbycrblBSVOVBKTFS8668-85-94 16:08:00 Test Item Value Reference Range Interpretation Comments Coronavirus (COVID-19) Not Detected EMMY (test code = (09/26/20 10:08 AM) Coronavirus (COVID-19) EMMY) [facility] PasoPiqhemeNJJRVSBUHH5595-98-82 16:08:00 Test Item Value Reference Range Interpretation Comments Coronavirus (COVID-19) Not Detected EMMY (test code = (09/26/20 10:08 AM) Coronavirus (COVID-19) EMMY) [facility] PasoHquzjbpJBCMSUJUGK0656-43-50 16:08:00 Test Item Value Reference Range Interpretation Comments Coronavirus (COVID-19) Not Detected EMMY (test code = (09/26/20 10:08 AM) Coronavirus (COVID-19) EMMY) [facility] Pa[id number] 16:08:00 Test Item Value Reference Range Interpretation Comments Coronavirus (COVID-19) Not Detected EMMY (test code = (09/26/20 10:08 AM) Coronavirus (COVID-19) EMMY) [facility] [employer] [id number] 15:42:00 Test Item Value Reference Range Interpretation Comments ABO/Rh (test code = ABO/Rh) A POS [facility] [employer] [id number] 15:42:00 Test Item Value Reference Range Interpretation Comments Antibody Scrn (test Negative (09/26/20 code = Antibody Scrn) 9:42 AM) [facility]2020-12-28 15:42:00 Test Item Value Reference Range Interpretation Comments Glucose Lvl (test code = Glucose Lvl) 106 70-99 [facility]2020-12-28 15:42:00 Test Item Value Reference Range Interpretation Comments BUN (test code = BUN) 17 7-22 [facility]2020-12-28 15:42:00 Test Item Value Reference Range Interpretation Comments Creatinine Lvl (test code = Creatinine 1.35 0.50-1.40 Lvl) [facility]2020-12-28 15:42:00 Test Item Value Reference Range Interpretation Comments Sodium Lvl (test code = Sodium Lvl) 140 135-145 [facility]2020-12-28 15:42:00 Test Item Value Reference Range Interpretation Comments Potassium Lvl (test code = Potassium 4.3 3.5-5.1 Lvl) [facility]2020-12-28 15:42:00 Test Item Value Reference Range Interpretation Comments Chloride Lvl (test code = Chloride Lvl) 108 95-109 [facility]2020-12-28 15:42:00 Test Item Value Reference Range Interpretation Comments CO2 (test code = CO2) 28 24-32 [facility]2020-12-28 15:42:00 Test Item Value Reference Range Interpretation Comments Calcium Lvl (test code = Calcium Lvl) 8.5 8.5-10.5 [facility]2020-12-28 15:42:00 Test Item Value Reference Range Interpretation Comments Total Protein (test code = Total 7.2 6.4-8.4 Protein) [facility]2020-12-28 15:42:00 Test Item Value Reference Range Interpretation Comments Albumin Lvl (test code = Albumin Lvl) 3.6 3.5-5.0 [facility]2020-12-28 15:42:00 Test Item Value Reference Range Interpretation Comments ALT (test code = ALT) 51 See_Comment [Auto mated message] The system which ge nerated this result transmit misael reference range : <=65. The reference range was not used to interpr et this result as bobby l/abnormal. [facility] [id number] 15:42:00 Test Item Value Reference Range Interpretation Comments AST (test code = AST) 28 See_Comment [Auto mated message] The system which ge nerated this result transmit misael reference range : <=37. The reference range was not used to interpr et this result as bobby l/abnormal. [facility] [id number] 15:42:00 Test Item Value Reference Range Interpretation Comments Alk Phos (test code = Alk Phos) 72 39-136 [place] 206110-12-28 15:42:00 Test Item Value Reference Range Interpretation Comments Bili Total (test code = Bili Total) 0.3 0.2-1.3 [place] 206110-12-28 15:42:00 Test Item Value Reference Range Interpretation Comments AGAP (test code = AGAP) 8.3 10.0-20.0 [facility]2020-12-28 15:42:00 Test Item Value Reference Range Interpretation Comments B/C Ratio (test code = B/C Ratio) 13 1 6-25 [place] 206110-12-28 15:42:00 Test Item Value Reference Range Interpretation Comments Globulin (test code = Globulin) 3.6 2.7-4.2 [facility]2020-12-28 15:42:00 Test Item Value Reference Range Interpretation Comments A/G Ratio (test code = A/G Ratio) 1.0 1 0.7-1.6 [facility]2020-12-28 15:42:00 Test Item Value Reference Range Interpretation Comments eGFR (test code = eGFR) 68 [facility] [id number] 15:42:00 Test Item Value Reference Range Interpretation Comments Segs (test code = Segs) 69.5 45.0-75.0 [place] 708010-12-28 15:42:00 Test Item Value Reference Range Interpretation Comments Lymphocytes (test code = Lymphocytes) 18.9 20.0-40.0 [facility] [id number] 15:42:00 Test Item Value Reference Range Interpretation Comments Monocytes (test code = Monocytes) 7.8 2.0-12.0 [facility] PasoKutadcgXMIEFBFRSE8059-44-87 15:42:00 Test Item Value Reference Range Interpretation Comments Eosinophils (test code = 3.2 See_Comment [A utomated message] The Eosinophils) system which ge nerated this result tra nsmitted reference range : <=4.0. The reference r nena was not used to int erpret this result as normal/abnormal . [facility] HospitalRzrdliaTDZPPBUSNL9754-10-41 15:42:00 Test Item Value Reference Range Interpretation Comments Basophils (test code = 0.6 See_Comment [Aut omated message] The Basophils) system which ge nerated this result tra nsmitted reference range : <=1.0. The reference r nena was not used to int erpret this result as normal/abnormal . [facility] HospitalFwdudjjHDYXXJCJIF3402-98-56 15:42:00 Test Item Value Reference Range Interpretation Comments Neutrophils # (test code = Neutrophils 4.1 1.5-8.1 #) [facility] HospitalAlbmlgnBGKABHPOVI8170-79-82 15:42:00 Test Item Value Reference Range Interpretation Comments Lymphocytes # (test code = Lymphocytes 1.1 1.0-5.5 #) [facility] HospitalHsypnisTNGDNFEMSB4287-35-98 15:42:00 Test Item Value Reference Range Interpretation Comments Monocytes # (test code 0.5 See_Comment [Aut omated message] The = Monocytes #) system which generated this result tra nsmitted reference range : <=0.8. The reference r nena was not used to int erpret this result as normal/abnormal . [facility] HospitalOalssnpPHZHRQPXEW6170-13-80 15:42:00 Test Item Value Reference Range Interpretation Comments Eosinophils # (test code 0.2 See_Comment [A utomated message] The = Eosinophils #) system whic h generated this result tra nsmitted reference range : <=0.5. The reference r nena was not used to int erpret this result as normal/abnormal . [facility] HospitalUplwgklPTALAFLEIK0714-23-06 15:42:00 Test Item Value Reference Range Interpretation Comments WBC (test code = WBC) 5.9 3.7-10.4 [place] 708010-12-28 15:42:00 Test Item Value Reference Range Interpretation Comments RBC (test code = RBC) 4.53 4.70-6.10 [place] 708010-12-28 15:42:00 Test Item Value Reference Range Interpretation Comments Hgb (test code = Hgb) 12.8 14.0-18.0 [facility] IjfuqagDIOWSGWPOZ5850-01-31 15:42:00 Test Item Value Reference Range Interpretation Comments Hct (test code = Hct) 39.8 42.0-54.0 [facility]QgdcdgvFJIOYHWZKY5937-92-31 15:42:00 Test Item Value Reference Range Interpretation Comments MCV (test code = MCV) 87.8 80.0-94.0 [facility]am[facility]XVMTMEECZO3509-87-65 15:42:00 Test Item Value Reference Range Interpretation Comments MCH (test code = MCH) 28.2 pg 27.0-31.0 [facility] HospitalXznfjvkIVXPOAVCTZ3859-51-81 15:42:00 Test Item Value Reference Range Interpretation Comments MCHC (test code = MCHC) 32.1 32.0-36.0 [facility] HospitalJzzbcotBHTSTFLDZK4661-10-46 15:42:00 Test Item Value Reference Range Interpretation Comments RDW (test code = RDW) 13.8 11.5-14.5 [facility] HospitalHeyhzzyKYYAGRYYPV5467-82-60 15:42:00 Test Item Value Reference Range Interpretation Comments Platelet (test code = Platelet) 210 133-450 [facility] HospitalHscmmuzYLFPSXKEWL5598-16-28 15:42:00 Test Item Value Reference Range Interpretation Comments MPV (test code = MPV) 9.9 7.4-10.4 [facility] [id number] 15:42:00 Test Item Value Reference Range Interpretation Comments Hgb A1C (test code = Hgb A1C) 7.2 [employer] [id number] 15:42:00 Test Item Value Reference Range Interpretation Comments ABO/Rh (test code = ABO/Rh) A POS [employer] [id number] 15:42:00 Test Item Value Reference Range Interpretation Comments Antibody Scrn (test Negative (09/26/20 code = Antibody Scrn) 9:42 AM) [employer] [id number] 15:42:00 Test Item Value Reference Range Interpretation Comments Glucose Lvl (test code = Glucose Lvl) 106 70-99 [facility] [employer] [id number] 15:42:00 Test Item Value Reference Range Interpretation Comments BUN (test code = BUN) 17 7-22 [place] 206110-12-28 15:42:00 Test Item Value Reference Range Interpretation Comments Creatinine Lvl (test code = Creatinine 1.35 0.50-1.40 Lvl) [place] [address]-12-28 15:42:00 Test Item Value Reference Range Interpretation Comments Sodium Lvl (test code = Sodium Lvl) 140 135-145 [place] [address]-12-28 15:42:00 Test Item Value Reference Range Interpretation Comments Potassium Lvl (test code = Potassium 4.3 3.5-5.1 Lvl) [place] [address]-12-28 15:42:00 Test Item Value Reference Range Interpretation Comments Chloride Lvl (test code = Chloride Lvl) 108 95-109 [place] [address]-12-28 15:42:00 Test Item Value Reference Range Interpretation Comments CO2 (test code = CO2) - [place] [address]-12-28 15:42:00 Test Item Value Reference Range Interpretation Comments Calcium Lvl (test code = Calcium Lvl) 8.5 8.5-10.5 [place] [address]-12-28 15:42:00 Test Item Value Reference Range Interpretation Comments Total Protein (test code = Total 7.2 6.4-8.4 Protein) [place] [address]-12-28 15:42:00 Test Item Value Reference Range Interpretation Comments Albumin Lvl (test code = Albumin Lvl) 3.6 3.5-5.0 [place] [address]-12-28 15:42:00 Test Item Value Reference Range Interpretation Comments ALT (test code = ALT) 51 See_Comment [Auto mated message] The system which ge nerated this result transmit misael reference range : <=65. The reference range was not used to interpr et this result as bobby l/abnormal. [facility] [id number] 15:42:00 Test Item Value Reference Range Interpretation Comments AST (test code = AST) 28 See_Comment [Auto mated message] The system which ge nerated this result transmit misael reference range : <=37. The reference range was not used to interpr et this result as bobby l/abnormal. [facility] [id number] 15:42:00 Test Item Value Reference Range Interpretation Comments Alk Phos (test code = Alk Phos) 72 39-136 [facility]2020-12-28 15:42:00 Test Item Value Reference Range Interpretation Comments Bili Total (test code = Bili Total) 0.3 0.2-1.3 [place] 206110-12-28 15:42:00 Test Item Value Reference Range Interpretation Comments AGAP (test code = AGAP) 8.3 10.0-20.0 [place] 206110-12-28 15:42:00 Test Item Value Reference Range Interpretation Comments B/C Ratio (test code = B/C Ratio) 13 1 6-25 [place] [address]-12-28 15:42:00 Test Item Value Reference Range Interpretation Comments Globulin (test code = Globulin) 3.6 2.7-4.2 [place] 206110-12-28 15:42:00 Test Item Value Reference Range Interpretation Comments A/G Ratio (test code = A/G Ratio) 1.0 1 0.7-1.6 [place] 206110-12-28 15:42:00 Test Item Value Reference Range Interpretation Comments eGFR (test code = eGFR) 68 [place] 708010-12-28 15:42:00 Test Item Value Reference Range Interpretation Comments Segs (test code = Segs) 69.5 45.0-75.0 [place] 708010-12-28 15:42:00 Test Item Value Reference Range Interpretation Comments Lymphocytes (test code = Lymphocytes) 18.9 20.0-40.0 [place] 708010-12-28 15:42:00 Test Item Value Reference Range Interpretation Comments Monocytes (test code = Monocytes) 7.8 2.0-12.0 [place] [address]-12-28 15:42:00 Test Item Value Reference Range Interpretation Comments Eosinophils (test code = 3.2 See_Comment [A utomated message] The Eosinophils) system which ge nerated this result tra nsmitted reference range : <=4.0. The reference r nena was not used to int erpret this result as normal/abnormal . [place] 708010-12-28 15:42:00 Test Item Value Reference Range Interpretation Comments Basophils (test code = 0.6 See_Comment [Aut omated message] The Basophils) system which ge nerated this result tra nsmitted reference range : <=1.0. The reference r nena was not used to int erpret this result as normal/abnormal . [facility]WgwdsqoGFHJUNJRXP6079-54-36 15:42:00 Test Item Value Reference Range Interpretation Comments Neutrophils # (test code = Neutrophils 4.1 1.5-8.1 #) [facility] HospitalLsaqkowNLFYQZEAAG8283-83-95 15:42:00 Test Item Value Reference Range Interpretation Comments Lymphocytes # (test code = Lymphocytes 1.1 1.0-5.5 #) [facility] HospitalYarfkjlXOPANPFOHY9144-98-31 15:42:00 Test Item Value Reference Range Interpretation Comments Monocytes # (test code 0.5 See_Comment [Aut omated message] The = Monocytes #) system which generated this result tra nsmitted reference range : <=0.8. The reference r nena was not used to int erpret this result as normal/abnormal . [facility] HospitalZgrsblnHWSPJSYRPI9889-83-48 15:42:00 Test Item Value Reference Range Interpretation Comments Eosinophils # (test code 0.2 See_Comment [A utomated message] The = Eosinophils #) system whic h generated this result tra nsmitted reference range : <=0.5. The reference r nena was not used to int erpret this result as normal/abnormal . [facility] HospitalWqtdbzgFWHDOJOHNW7779-15-26 15:42:00 Test Item Value Reference Range Interpretation Comments WBC (test code = WBC) 5.9 3.7-10.4 [facility] HospitalTgdiqrmNPEUGLNIRE6665-19-07 15:42:00 Test Item Value Reference Range Interpretation Comments RBC (test code = RBC) 4.53 4.70-6.10 [place] 708010-12-28 15:42:00 Test Item Value Reference Range Interpretation Comments Hgb (test code = Hgb) 12.8 14.0-18.0 [facility] HospitalHbrhxxtFEFZCNXAPF7168-91-12 15:42:00 Test Item Value Reference Range Interpretation Comments Hct (test code = Hct) 39.8 42.0-54.0 [place] 708010-12-28 15:42:00 Test Item Value Reference Range Interpretation Comments MCV (test code = MCV) 87.8 80.0-94.0 [facility] HospitalHbsdpkiBNOWYFWRUJ9979-75-61 15:42:00 Test Item Value Reference Range Interpretation Comments MCH (test code = MCH) 28.2 pg 27.0-31.0 [facility] Vi[employer]TLKJYSWVER7710-79-90 15:42:00 Test Item Value Reference Range Interpretation Comments MCHC (test code = MCHC) 32.1 32.0-36.0 [facility] PjdhiurMQTNNVWHQY7525-80-30 15:42:00 Test Item Value Reference Range Interpretation Comments RDW (test code = RDW) 13.8 11.5-14.5 [facility] MadplclAVIFUHKPRA3356-42-28 15:42:00 Test Item Value Reference Range Interpretation Comments Platelet (test code = Platelet) 210 133-450 [facility] HospitalAdlvbwwFPXTFHOQNW8313-60-12 15:42:00 Test Item Value Reference Range Interpretation Comments MPV (test code = MPV) 9.9 7.4-10.4 [facility]May[facility] PAC EANTGBGDA7797-32-48 15:42:00 Test Item Value Reference Range Interpretation Comments Hgb A1C (test code = Hgb A1C) 7.2 [facility] [employer] [id number] 15:42:00 Test Item Value Reference Range Interpretation Comments ABO/Rh (test code = ABO/Rh) A POS [facility] [employer] VIWZPVK0615-02-27 15:42:00 Test Item Value Reference Range Interpretation Comments Antibody Scrn (test Negative (09/26/20 code = Antibody Scrn) 9:42 AM) [facility] [employer]2020-12-28 15:42:00 Test Item Value Reference Range Interpretation Comments Glucose Lvl (test code = Glucose Lvl) 106 70-99 [facility] [employer]2020-12-28 15:42:00 Test Item Value Reference Range Interpretation Comments BUN (test code = BUN) 17 7-22 [employer]2020-12-28 15:42:00 Test Item Value Reference Range Interpretation Comments Creatinine Lvl (test code = Creatinine 1.35 0.50-1.40 Lvl) [facility] [employer]2020-12-28 15:42:00 Test Item Value Reference Range Interpretation Comments Sodium Lvl (test code = Sodium Lvl) 140 135-145 [facility] [employer]2020-12-28 15:42:00 Test Item Value Reference Range Interpretation Comments Potassium Lvl (test code = Potassium 4.3 3.5-5.1 Lvl) [facility] [employer] [id number] 15:42:00 Test Item Value Reference Range Interpretation Comments Chloride Lvl (test code = Chloride Lvl) 108 95-109 [facility] [employer] [id number] 15:42:00 Test Item Value Reference Range Interpretation Comments CO2 (test code = CO2) 28 24-32 [facility] [employer] [id number] 15:42:00 Test Item Value Reference Range Interpretation Comments Calcium Lvl (test code = Calcium Lvl) 8.5 8.5-10.5 [facility] [employer] [id number] 15:42:00 Test Item Value Reference Range Interpretation Comments Total Protein (test code = Total 7.2 6.4-8.4 Protein) [facility] [employer] [id number] 15:42:00 Test Item Value Reference Range Interpretation Comments Albumin Lvl (test code = Albumin Lvl) 3.6 3.5-5.0 [facility] [employer] [id number] 15:42:00 Test Item Value Reference Range Interpretation Comments ALT (test code = ALT) 51 See_Comment [Auto mated message] The system which ge nerated this result transmit misael reference range : <=65. The reference range was not used to interpr et this result as bobby l/abnormal. [facility] [employer] [id number] 15:42:00 Test Item Value Reference Range Interpretation Comments AST (test code = AST) 28 See_Comment [Auto mated message] The system which ge nerated this result transmit misael reference range : <=37. The reference range was not used to interpr et this result as bobby l/abnormal. [facility] [employer] [id number] 15:42:00 Test Item Value Reference Range Interpretation Comments Alk Phos (test code = Alk Phos) 72 39-136 [facility] [employer] [id number] 15:42:00 Test Item Value Reference Range Interpretation Comments Bili Total (test code = Bili Total) 0.3 0.2-1.3 [facility] [employer] [id number] 15:42:00 Test Item Value Reference Range Interpretation Comments AGAP (test code = AGAP) 8.3 10.0-20.0 [place] 206110-12-28 15:42:00 Test Item Value Reference Range Interpretation Comments B/C Ratio (test code = B/C Ratio) 13 1 6-25 [place] [address]-12-28 15:42:00 Test Item Value Reference Range Interpretation Comments Globulin (test code = Globulin) 3.6 2.7-4.2 [place] [address]-12-28 15:42:00 Test Item Value Reference Range Interpretation Comments A/G Ratio (test code = A/G Ratio) 1.0 1 0.7-1.6 [place] [address]-12-28 15:42:00 Test Item Value Reference Range Interpretation Comments eGFR (test code = eGFR) 68 [place] [address]-12-28 15:42:00 Test Item Value Reference Range Interpretation Comments Segs (test code = Segs) 69.5 45.0-75.0 [place] [address]-12-28 15:42:00 Test Item Value Reference Range Interpretation Comments Lymphocytes (test code = Lymphocytes) 18.9 20.0-40.0 [place] [address]-12-28 15:42:00 Test Item Value Reference Range Interpretation Comments Monocytes (test code = Monocytes) 7.8 2.0-12.0 [place] [address]-12-28 15:42:00 Test Item Value Reference Range Interpretation Comments Eosinophils (test code = 3.2 See_Comment [A utomated message] The Eosinophils) system which ge nerated this result tra nsmitted reference range : <=4.0. The reference r nena was not used to int erpret this result as normal/abnormal . [place] [address]-12-28 15:42:00 Test Item Value Reference Range Interpretation Comments Basophils (test code = 0.6 See_Comment [Aut omated message] The Basophils) system which ge nerated this result tra nsmitted reference range : <=1.0. The reference r nena was not used to int erpret this result as normal/abnormal . [place] [address]-12-28 15:42:00 Test Item Value Reference Range Interpretation Comments Neutrophils # (test code = Neutrophils 4.1 1.5-8.1 #) [place] 708010-12-28 15:42:00 Test Item Value Reference Range Interpretation Comments Lymphocytes # (test code = Lymphocytes 1.1 1.0-5.5 #) [facility]XhnsvjeZUSJNHWYML6169-57-60 15:42:00 Test Item Value Reference Range Interpretation Comments Monocytes # (test code 0.5 See_Comment [Aut omated message] The = Monocytes #) system which generated this result tra nsmitted reference range : <=0.8. The reference r nena was not used to int erpret this result as normal/abnormal . [facility] HospitalNkkeibeGZPKDEOZSD4978-80-70 15:42:00 Test Item Value Reference Range Interpretation Comments Eosinophils # (test code 0.2 See_Comment [A utomated message] The = Eosinophils #) system whic h generated this result tra nsmitted reference range : <=0.5. The reference r nena was not used to int erpret this result as normal/abnormal . [facility] HospitalDerywixCPPRHJBFDT7770-41-27 15:42:00 Test Item Value Reference Range Interpretation Comments WBC (test code = WBC) 5.9 3.7-10.4 [facility] HospitalBgucsgjFIPLOWIXGI5629-36-45 15:42:00 Test Item Value Reference Range Interpretation Comments RBC (test code = RBC) 4.53 4.70-6.10 [facility] HospitalNwctrqmKQNSOVFFSJ3248-81-49 15:42:00 Test Item Value Reference Range Interpretation Comments Hgb (test code = Hgb) 12.8 14.0-18.0 [facility] HospitalXvbmlovHCFGAOSCRA5947-72-05 15:42:00 Test Item Value Reference Range Interpretation Comments Hct (test code = Hct) 39.8 42.0-54.0 [place] 708010-12-28 15:42:00 Test Item Value Reference Range Interpretation Comments MCV (test code = MCV) 87.8 80.0-94.0 [place] 708010-12-28 15:42:00 Test Item Value Reference Range Interpretation Comments MCH (test code = MCH) 28.2 pg 27.0-31.0 [facility] HospitalLyrsiasFCKAZGMQVF1611-83-47 15:42:00 Test Item Value Reference Range Interpretation Comments MCHC (test code = MCHC) 32.1 32.0-36.0 [facility] HospitalXuklouuWUTTNJFXJO4708-12-62 15:42:00 Test Item Value Reference Range Interpretation Comments RDW (test code = RDW) 13.8 11.5-14.5 [facility] CbivmweXLXMBNAGPY1422-63-11 15:42:00 Test Item Value Reference Range Interpretation Comments Platelet (test code = Platelet) 210 133-450 [facility] HospitalKddoievMJWCQCQWDP3291-67-60 15:42:00 Test Item Value Reference Range Interpretation Comments MPV (test code = MPV) 9.9 7.4-10.4 [facility] KRCBZMKPX1859-26-57 15:42:00 Test Item Value Reference Range Interpretation Comments Hgb A1C (test code = Hgb A1C) 7.2 [facility] [employer] [id number] 15:42:00 Test Item Value Reference Range Interpretation Comments ABO/Rh (test code = ABO/Rh) A POS [facility] [employer] [id number] 15:42:00 Test Item Value Reference Range Interpretation Comments Antibody Scrn (test Negative (09/26/20 code = Antibody Scrn) 9:42 AM) [facility] [employer]2020-12-28 15:42:00 Test Item Value Reference Range Interpretation Comments Glucose Lvl (test code = Glucose Lvl) 106 70-99 [facility] [employer]2020-12-28 15:42:00 Test Item Value Reference Range Interpretation Comments BUN (test code = BUN) 17 7-22 [facility] [employer]2020-12-28 15:42:00 Test Item Value Reference Range Interpretation Comments Creatinine Lvl (test code = Creatinine 1.35 0.50-1.40 Lvl) [facility] [employer]2020-12-28 15:42:00 Test Item Value Reference Range Interpretation Comments Sodium Lvl (test code = Sodium Lvl) 140 135-145 [facility] [employer]2020-12-28 15:42:00 Test Item Value Reference Range Interpretation Comments Potassium Lvl (test code = Potassium 4.3 3.5-5.1 Lvl) [employer]2020-12-28 15:42:00 Test Item Value Reference Range Interpretation Comments Chloride Lvl (test code = Chloride Lvl) 108 95-109 [facility] [employer]2020-12-28 15:42:00 Test Item Value Reference Range Interpretation Comments CO2 (test code = CO2) 28 24-32 [facility] [employer]2020-12-28 15:42:00 Test Item Value Reference Range Interpretation Comments Calcium Lvl (test code = Calcium Lvl) 8.5 8.5-10.5 [facility] [employer] [id number] 15:42:00 Test Item Value Reference Range Interpretation Comments Total Protein (test code = Total 7.2 6.4-8.4 Protein) [facility] [employer] [id number] 15:42:00 Test Item Value Reference Range Interpretation Comments Albumin Lvl (test code = Albumin Lvl) 3.6 3.5-5.0 [facility] [employer] [id number] 15:42:00 Test Item Value Reference Range Interpretation Comments ALT (test code = ALT) 51 See_Comment [Auto mated message] The system which ge nerated this result transmit misael reference range : <=65. The reference range was not used to interpr et this result as bobby l/abnormal. [facility] [employer] [id number] 15:42:00 Test Item Value Reference Range Interpretation Comments AST (test code = AST) 28 See_Comment [Auto mated message] The system which ge nerated this result transmit misael reference range : <=37. The reference range was not used to interpr et this result as bobby l/abnormal. [facility] [employer] [id number] 15:42:00 Test Item Value Reference Range Interpretation Comments Alk Phos (test code = Alk Phos) 72 39-136 [facility] [employer] [id number] 15:42:00 Test Item Value Reference Range Interpretation Comments Bili Total (test code = Bili Total) 0.3 0.2-1.3 [facility] [employer] [id number] 15:42:00 Test Item Value Reference Range Interpretation Comments AGAP (test code = AGAP) 8.3 10.0-20.0 [facility] [employer] [id number] 15:42:00 Test Item Value Reference Range Interpretation Comments B/C Ratio (test code = B/C Ratio) 13 1 6-25 [facility] [employer] [id number] 15:42:00 Test Item Value Reference Range Interpretation Comments Globulin (test code = Globulin) 3.6 2.7-4.2 [facility] [employer] [id number] 15:42:00 Test Item Value Reference Range Interpretation Comments A/G Ratio (test code = A/G Ratio) 1.0 1 0.7-1.6 [facility]2020-12-28 15:42:00 Test Item Value Reference Range Interpretation Comments eGFR (test code = eGFR) 68 [facility] HospitalVzqbekbZCPBWHHPOU4238-50-22 15:42:00 Test Item Value Reference Range Interpretation Comments Segs (test code = Segs) 69.5 45.0-75.0 [place] 708010-12-28 15:42:00 Test Item Value Reference Range Interpretation Comments Lymphocytes (test code = Lymphocytes) 18.9 20.0-40.0 [place] 708010-12-28 15:42:00 Test Item Value Reference Range Interpretation Comments Monocytes (test code = Monocytes) 7.8 2.0-12.0 [facility] HospitalSqcuwkaONJKNPAJTS0619-42-02 15:42:00 Test Item Value Reference Range Interpretation Comments Eosinophils (test code = 3.2 See_Comment [A utomated message] The Eosinophils) system which ge nerated this result tra nsmitted reference range : <=4.0. The reference r nena was not used to int erpret this result as normal/abnormal . [facility] HospitalAcnfcvyNXIHZZFESS1090-41-21 15:42:00 Test Item Value Reference Range Interpretation Comments Basophils (test code = 0.6 See_Comment [Aut omated message] The Basophils) system which ge nerated this result tra nsmitted reference range : <=1.0. The reference r nena was not used to int erpret this result as normal/abnormal . [facility] HospitalDlclbyrTMTALMTWPE0009-84-80 15:42:00 Test Item Value Reference Range Interpretation Comments Neutrophils # (test code = Neutrophils 4.1 1.5-8.1 #) [place] 708010-12-28 15:42:00 Test Item Value Reference Range Interpretation Comments Lymphocytes # (test code = Lymphocytes 1.1 1.0-5.5 #) [place] [address]-12-28 15:42:00 Test Item Value Reference Range Interpretation Comments Monocytes # (test code 0.5 See_Comment [Aut omated message] The = Monocytes #) system which generated this result tra nsmitted reference range : <=0.8. The reference r nena was not used to int erpret this result as normal/abnormal . [facility]qc[facility]JKUYWD1408[facility] 15:42:00 Test Item Value Reference Range Interpretation Comments Eosinophils # (test code 0.2 See_Comment [A utomated message] The = Eosinophils #) system whic h generated this result tra nsmitted reference range : <=0.5. The reference r nena was not used to int erpret this result as normal/abnormal . [facility] RegionXjuolctSJRRNAXMQH0240-06-30 15:42:00 Test Item Value Reference Range Interpretation Comments WBC (test code = WBC) 5.9 3.7-10.4 [facility] RegionTyhmybfKQPFTZKXKG3451-31-76 15:42:00 Test Item Value Reference Range Interpretation Comments RBC (test code = RBC) 4.53 4.70-6.10 [facility] RegionSmzqmagAEGQRTQEHW4365-31-42 15:42:00 Test Item Value Reference Range Interpretation Comments Hgb (test code = Hgb) 12.8 14.0-18.0 [facility] RegionWnbihouXMUXYOEOCV6192-67-61 15:42:00 Test Item Value Reference Range Interpretation Comments Hct (test code = Hct) 39.8 42.0-54.0 [facility] RegionVgfbczxDHUGNYFNMA9443-81-17 15:42:00 Test Item Value Reference Range Interpretation Comments MCV (test code = MCV) 87.8 80.0-94.0 [facility] RegionOwhhxciYEZSWBFPWI6922-75-42 15:42:00 Test Item Value Reference Range Interpretation Comments MCH (test code = MCH) 28.2 pg 27.0-31.0 [facility] RegionEhalgfwEYELKSGHPN8319-71-62 15:42:00 Test Item Value Reference Range Interpretation Comments MCHC (test code = MCHC) 32.1 32.0-36.0 [facility] RegionXkwracnPSBZURVYRV9725-00-53 15:42:00 Test Item Value Reference Range Interpretation Comments RDW (test code = RDW) 13.8 11.5-14.5 [facility] RegionTzmfpmeUGJWTUOUHM2226-23-42 15:42:00 Test Item Value Reference Range Interpretation Comments Platelet (test code = Platelet) 210 133-450 [facility] RegionShszjqxQRXMHTAYAG5903-81-04 15:42:00 Test Item Value Reference Range Interpretation Comments MPV (test code = MPV) 9.9 7.4-10.4 [facility] VXGTDRXJN8138-16-36 15:42:00 Test Item Value Reference Range Interpretation Comments Hgb A1C (test code = Hgb A1C) 7.2 [facility] [id number] 09:48:00 RUN DATE: 04/09/20 [facility] *LIVE* PAGE 1 RUN TIME: 947 Specimen Inquiry RUN USER: INTERFACE --------- ---PATIENT: ELIE CUEVAS LOC: [place] U #: [id number] AGE/SX: 55/M ROOM: RE04/07/20REG DR: Everton Ott MD : 67 BED: DIS: STATUS: DEP [facility] [place] TLOC: SPEC #: [id number] RECD: 04/07/20 STATUS: LOPEZ YOUSIF #: [id number] TIERRA: 04/07/[address]: Everton Ott MD ENTERED: 04/09/20 SP TYPE: SURG SPEC OTHR DR: Jn Sharpe MD ORDERED: GM LEVEL 4 CODES: [id number] - SOFT TISSUES, N COPIES TO: Everton Ott MD [address] [place], [place] [id number] Jn Sharpe MD [address] [place] [address] [id number] PROCEDURES: GM LEVEL 4 (Incomplete) TISSUES: 1. SOFT TISSUES, NOS - Soft tissue, stomach, FNA FINAL DIAGNOSIS Soft tissue, stomach, FNA: Gastrointestinal stromal tumor (GIST) (see comment). GROSS AND MICROSCOPIC INTRAOPERATIVE CONSULTATION: Adequate material. GROSS EXAMINATION: Received are cytology smears for intraoperative consultation. Also received is fluid for cell block preparations. MICROSCOPIC EXAMINATION: The cytology preparations (smears and cell block sections) reveal fragments of spindle shaped cells without significant nuclear atypia or mitoses. COMMENT: Immunostaining reveals that the spindle shaped cells are positive for CD 117, Dog1, focal positive for desmin, and are negative for pancytokeratin, S100, and smooth muscle actin. The findings are consistent with gastrointestinal stromal tumor. (When special stains have been reviewed, the appropriate positive/negative controls have been reviewed and are appropriately positive/negative). CONTINUED ON NEXT PAGE RUN DATE: 04/09/20 [facility] *LIVE* PAGE 2 RUN TIME: 947 Specimen Inquiry RUN USER: INTERFACE SPEC #: [id number] PATIENT: ELIE CUEVAS #[id number] (Continued) POST-OP DIAGNOSIS Other disease of stomach, duodenum, diverticulosis of large intestine without perforation of abscess without bleeding,neoplasm of stomach PRE-OP DIAGNOSIS Other disease of stomach, duodenum, diverticulosis of large intestine without perforation of abscess without bleeding, neoplasm of stomach REVIEWED BY: MR - Signed SIGNATURE ON FILE Angelica Díaz MD 04/09/20 0948 END OF REPORT [id number] 08:31:00 Test Item Value Reference Range Interpretation Comments GLUBED (test code = 196 MG/DL 70-110 H Performe d by certified 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[facility] BASIC METABOLIC [id number] 07:19:00 Test Item Value Reference Range Interpretation Comments SODIUM (test code = NA) 141 mEq/L 134-147 N POTASSIUM (test code = 3.5 mEq/L 3.4-5.0 N K) CHLORIDE (test code = 105 mEq/L 100-108 N CL) CARBON DIOXIDE (test 29 mEq/L 21-33 N code = CO2) ANION GAP (test code = 11 0-20 N GAP) GLUCOSE (test code = 186 mg/dL 70-110 H GLU) BLOOD UREA NITROGEN 14 mg/dL 7-18 N (test code = BUN) GLOMERULAR FILTRATION 76.3 90-95 L Units of measure = RATE (test code = GFR) ml/mi n/1.73 m2 CREATININE (test code = 1.2 mg/dL 0.6-1.3 N CREAT) CALCIUM (test code = 8.7 mg/dL 8.0-10.5 N CA) [id number] 06:44:00 Test Item Value Reference Range Interpretation Comments GLUBED (test code = 175 MG/DL 70-110 H Performe d by certified 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[facility] Novel Coronavirus 2019 [id number] 05:48:00 Test Item Value Reference Range Interpretation Comments Novel Coronavirus 2019 Inhouse (test Negative Negative code = COVNONPUI) Novel Coronavirus 2019 [id number] 23:23:00 Test Item Value Reference Range Interpretation Comments Novel Coronavirus 2019 Inhouse (test Positive Negative A code = COVNONPUI) BASIC METABOLIC [id number] 14:32:00 Test Item Value Reference Range Interpretation Comments SODIUM (test code = NA) 138 mEq/L 134-147 N POTASSIUM (test code = 3.9 mEq/L 3.4-5.0 N K) CHLORIDE (test code = 107 mEq/L 100-108 N CL) CARBON DIOXIDE (test 26 mEq/L 21-33 N code = CO2) ANION GAP (test code = 9 0-20 N GAP) GLUCOSE (test code = 101 mg/dL 70-110 N GLU) BLOOD UREA NITROGEN 20 mg/dL 7-18 H (test code = BUN) GLOMERULAR FILTRATION 76.3 90-95 L Units of measure = RATE (test code = GFR) ml/mi n/1.73 m2 CREATININE (test code = 1.2 mg/dL 0.6-1.3 N CREAT) CALCIUM (test code = 8.6 mg/dL 8.0-10.5 N CA) BASIC METABOLIC [id number] 14:26:00 Test Item Value Reference Range Interpretation Comments SODIUM (test code = NA) 138 mEq/L 134-147 N POTASSIUM (test code = K) 3.9 mEq/L 3.4-5.0 N CHLORIDE (test code = CL) 107 mEq/L 100-108 N CARBON DIOXIDE (test code = CO2) 26 mEq/L 21-33 N ANION GAP (test code = GAP) 9 0-20 N GLUCOSE (test code = GLU) 101 mg/dL 70-110 N BLOOD UREA NITROGEN (test code = 20 mg/dL 7-18 H BUN) GLOMERULAR FILTRATION RATE (test 90-95 code = GFR) CREATININE (test code = CREAT) mg/dL 0.6-1.3 CALCIUM (test code = CA) 8.6 mg/dL 8.0-10.5 N - XR CHEST 2 [id number] 14:24:00 FAX: Everton Weiner MD [phone] [place]: St: PRE FAX: Jn Flannery MD [phone] FAX: Bee Rosales N Name: ELIE CUEVAS [facility] : 1965 Age/S: 55/M [address] [place] [address] Unit #: [id number] Loc: [place] [address] Phys: Bee Rosales RN ONCOLOGY Acct: [id number] Dis Date: Status: PRE [facility] [place] PHONE #: [phone] Exam Date: 03/22/2020 1419 FAX #: [phone] Reason: PREOP EXAMS: CPT CODE: [id number] XR CHEST 2 V 87100 Clinical Indication: Neoplasia of stomach. Preoperative chest radiograph. Comparison: None available. Impression: Chest, 2 views. No consolidation, pleural effusion, or pneumothorax. Cardiomediastinal silhouette is unremarkable. No acute osseous abnormality. SL: [id number] at 1424 Reported and signed by: Rosas Swenson M.D. CC: Everton Ott MD; Jn Sharpe MD; Bee Rosales NP Technologist: RT Brooks(R) Trnscrd Date/Time/By: 03/22/2020 (8170) : By: [email or web address] OrigPrint D/T: S: 03/22/2020 (9317) PAGE 1 Signed ReportCBC W/AUTO [id number] 14:12:00 Test Item Value Reference Range Interpretation Comments WHITE BLOOD CELL (test code = 8.88 x10 3/uL 4.5-11.0 N WBC) RED BLOOD CELL (test code = 4.12 x10 6/uL 4.00-5.60 N RBC) HEMOGLOBIN (test code = HGB) 11.4 g/dL 12.5-16.9 L HEMATOCRIT (test code = HCT) 35.5 % 37.5-50.7 L MEAN CELL VOLUME (test code = 86.2 fL 81.0-99.0 N MCV) MEAN CELL HGB (test code = MCH) 27.7 pg 27.0-33.0 N MEAN CELL HGB CONCETRATION 32.1 g/dL 33.0-37.0 L (test code = MCHC) RED CELL DISTRIBUTION WIDTH CV 15.9 % 11.5-14.5 H (test code = RDW) RED CELL DISTRIBUTION WIDTH SD 50.3 fL 37.0-54.0 N (test code = RDW-SD) PLATELET COUNT (test code = 244 x10 3/uL 150-400 N PLT) MEAN PLATELET VOLUME (test code 12.3 fL 7.0-9.0 H = MPV) NEUTROPHIL % (test code = NT%) 74.9 % 56.0-77.0 N IMMATURE GRANULOCYTE % (test 0.3 % 0.0-2.0 N code = IG%) LYMPHOCYTE % (test code = LY%) 15.4 % 14.0-32.0 N MONOCYTE % (test code = MO%) 7.4 % 4.8-9.0 N EOSINOPHIL % (test code = EO%) 1.8 % 0.3-3.7 N BASOPHIL % (test code = BA%) 0.2 % 0.0-2.0 N NUCLEATED RBC % (test code = 0.0 % 0-0 N NRBC%) NEUTROPHIL # (test code = NT#) 6.64 x10 3/uL 2.0-7.6 N IMMATURE GRANULOCYTE # (test 0.03 x10 3/uL 0.00-0.03 N code = IG#) LYMPHOCYTE # (test code = LY#) 1.37 x10 3/uL 1.0-3.8 N MONOCYTE # (test code = MO#) 0.66 x10 3/uL 0.1-0.8 N EOSINOPHIL # (test code = EO#) 0.16 x10 3/uL 0.0-0.2 N BASOPHIL # (test code = BA#) 0.02 x10 3/uL 0.0-0.2 N NUCLEATED RBC # (test code = 0.00 x10 3/uL 0.0-0.1 N NRBC#) MANUAL DIFF REQUIRED (test code NO = MDIFF) CBC W/MANUAL [id number] 17:08:00 Test Item Value Reference Range Interpretation Comments WHITE BLOOD CELL (test code 9.26 x10 3/uL 4.5-11.0 N = WBC) RED BLOOD CELL (test code = 2.64 x10 6/uL 4.00-5.60 L RBC) HEMOGLOBIN (test code = 7.1 g/dL 12.5-16.9 L HGB) HEMATOCRIT (test code = 21.9 % 37.5-50.7 L HCT) MEAN CELL VOLUME (test code 83.0 fL 81.0-99.0 N = MCV) MEAN CELL HGB (test code = 26.9 pg 27.0-33.0 L MCH) MEAN CELL HGB CONCETRATION 32.4 g/dL 33.0-37.0 L (test code = MCHC) RED CELL DISTRIBUTION WIDTH 16.7 % 11.5-14.5 H CV (test code = RDW) RED CELL DISTRIBUTION WIDTH 48.5 fL 37.0-54.0 N SD (test code = RDW-SD) PLATELET COUNT (test code = 229 x10 3/uL 150-400 N PLT) MEAN PLATELET VOLUME (test 12.2 fL 7.0-9.0 H code = MPV) SEGMENTED NEUTROPHILS (test 75.5 % 37-69 H code = SEG) LYMPHOCYTE (test code = 20.9 % 23-55 L LYMPH) MONOCYTE (test code = MON) 2.7 % 0-10 N EOSINOPHIL (test code = 0.9 % 0.0-4.0 N EOS) POLYCHROMASIA (test code = 2+ POLC) POIKILOCYTOSIS (test code = 1+ POIK) ANISOCYTOSIS (test code = 2+ ANISO) MICROCYTOSIS (test code = 1+ MICR) MACROCYTOSIS (test code = FEW MACR) TARGET CELLS (test code = RARE TGT) ELLIPTOCYTES (test code = 1+ ELL) OVALOCYTES (test code = FEW OVAL) PLATELET ESTIMATE (test Adequate THOUSAND ADEQUATE code = PLTEST) PLATELET MORPHOLOGY (test LARGE PLATELETS code = PLTMORPH) CBC W/MANUAL [id number] 16:30:00 Test Item Value Reference Range Interpretation Comments WHITE BLOOD CELL (test code = 9.26 x10 3/uL 4.5-11.0 N WBC) RED BLOOD CELL (test code = 2.64 x10 6/uL 4.00-5.60 L RBC) HEMOGLOBIN (test code = HGB) 7.1 g/dL 12.5-16.9 L HEMATOCRIT (test code = HCT) 21.9 % 37.5-50.7 L MEAN CELL VOLUME (test code = 83.0 fL 81.0-99.0 N MCV) MEAN CELL HGB (test code = MCH) 26.9 pg 27.0-33.0 L MEAN CELL HGB CONCETRATION 32.4 g/dL 33.0-37.0 L (test code = MCHC) RED CELL DISTRIBUTION WIDTH CV 16.7 % 11.5-14.5 H (test code = RDW) RED CELL DISTRIBUTION WIDTH SD 48.5 fL 37.0-54.0 N (test code = RDW-SD) PLATELET COUNT (test code = 229 x10 3/uL 150-400 N PLT) MEAN PLATELET VOLUME (test code 12.2 fL 7.0-9.0 H = MPV) ANISOCYTOSIS (test code = ANISO) PLATELET ESTIMATE (test code = THOUSAND ADEQUATE PLTEST) Notes Date/Time Note Provider Source 2020-09-29 11:45:00-00:00 PROCEDURE INFORMATION: [facility] Exam: FL Upper Gastrointestinal Tract without KU B Exam date and time: 09/29/2020 12:56 PM Age: 55 years old Clinical indication: Symptom s: Post partial gastrectomy; Additional info: /post partial gastrectomy TECHNIQUE: Imaging protocol: Radiologic examination, gastrointestinal tract, upper with or without delayed images, without KUB. Guided with fluoroscopy. Other contrast: Oral, Omnipaque 300, 200; COMPARISON: No relevant prior studies available. RADIATION DOSE METRICS: Fluoroscopy time (seconds): 79 Number of fluoro spot images: 17 Reference air kerma (ERIC): 170 mGy FINDINGS: Scrap Bunch Maker: Unremarkable. Esophagus: Esophagus is unremarkable. Normal juan marcy stripping wave. Stomach: The stomach is unremarkable wit hout significant mass or stricture. No extravasation or obstruction. Intestine: Visualized duodenum is unremarkable without mass or stricture. IMPRESSION: No evidence for contrast extravasation or obstru ction. Paramjit Garcia MD On 09/29/2020 13:09:22; [id number]- [id number] 2020-09-29 11:45:00-00:00 PROCEDURE INFORMATION: [facility] Exam: FL Upper Gastrointestinal Tract without KU B Exam date and time: 09/29/2020 12:56 PM Age: 55 years old Clinical indication: Symptom s: Post partial gastrectomy; Additional info: /post partial gastrectomy TECHNIQUE: Imaging protocol: Radiologic examination, gastrointestinal tract, upper with or without delayed images, without KUB. Guided with fluoroscopy. Other contrast: Oral, Omnipaque 300, 200; COMPARISON: No relevant prior studies available. RADIATION DOSE METRICS: Fluoroscopy time (seconds): 79 Number of fluoro spot images: 17 Reference air kerma (ERIC): 170 mGy FINDINGS: Scrap Bunch Maker: Unremarkable. Esophagus: Esophagus is unremarkable. Normal juan marcy stripping wave. Stomach: The stomach is unremarkable wit hout significant mass or stricture. No extravasation or obstruction. Intestine: Visualized duodenum is unremarkable without mass or stricture. IMPRESSION: No evidence for contrast extravasation or obstru ction. Paramjit Garcia MD On 09/29/2020 13:09:22; [id number]- [id number] 2020-04-07 06:58:00-00:00 [id number] [address] PATIENT NAME: ELIE CUEVAS ADMIT DATE: ACCOUNT NO: [id number] ROOM NO: AGE: 55 REPORT TYPE: ENDOSCOPY REPORT SEX: M ADMITTING PHYSICIAN: ATTENDING PHYSICIAN:Everton Ott MD Gastroenterology Patient Name: Elie Cuevas Procedure Date: 04/07/2020 6:58 AM Date of : 1965 Procedure: Upper EUS Indications: Gastric mucosal mass/polyp found on endoscopy Patient Profile: This is a 55 year old male. Providers: Everton Ott MD Referring MD: Requesting Provider: Medicines: Monitored Anesthesia Care Procedure: Pre-Anesthesia Assessment: - Prior to the procedure, a History and Physic al was performed, and patient medications and allergie s were reviewed. The patient's tolerance of previous a nesthesia was also reviewed. The risks and benefits of th e procedure and the sedation options and risks we re discussed with the patient. All questions were answered, and informed consent was obtained. Prior Antico agulants: The patient has taken no previous anticoagulant or antiplatelet agents. ASA Grade Assessment: III - A patient with severe systemic disease. After rev iewing the risks and benefits, the patient was deemed in satisfactory condition to undergo the procedure . After obtaining informed consent, the endoscope was passed under direct vision. Throughout the proc edure, the patient's blood pressure, pulse, and oxygen saturations were monitored continuously. The Endosonoscope was introduced through the mouth, and advanced to the second part of duodenum. The up per EUS was accomplished without difficulty. The patien t tolerated the procedure well. Findings: ENDOSCOPIC FINDING: : The examined esophagus was endoscopically bobby l. A large, ulcerated, non-circumferential mass wi th no bleeding and no stigmata of recent bleeding was found in the s tomach. The examined duodenum was endoscopically normal . ENDOSONOGRAPHIC FINDING: : PATIENT NAME: ELIE CUEVAS [id number] The esophagus, stomach and duodenum were visual ized endosonographically. There was no sign of significant endosonographi c abnormality in the left lobe of the liver. No focal pathology was ident ified. An oval intramural (subepithelial) lesion was f ound in the greater curve of the stomach. The lesion was hypoechoic. Sono graphically, the lesion appeared to originate from the muscularis propr ia (Layer 4). The lesion measured 40 mm (in maximum thickness). The lesi on also measured 44 mm in diameter. The outer endosonographic borders wer e irregular. Fine needle biopsy was performed. Color Doppler imaging was utilized prior to needle puncture to confirm a lack of significant vascu lar structures within the needle path. Five passes were made with the 22 gauge ultrasound core biopsy needle using a transgastric approach. A visible core of tissue was obtained. A preliminary cytologic examinati on was performed. The cellularity of the specimen was adequate. Final cytology results are pending. Complications: No immediate complications. Estimated Blood Loss: Estimated blood loss: none. Impression: EGD Impressions: - Normal esophagus. - Gastric submucosal tumor. - Normal examined duodenum. EUS Impressions: - There was no evidence of significant patholog y in the left lobe of the liver. - An intramural (subepithelial) lesion was foun d in the greater curve of the stomach. The lesion appear ed to originate from within the muscularis propria (L yohan 4). Tissue was obtained from this exam. 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 Fine needle biopsy performed. Recommendation: - Patient has a contact number a vailable for emergencies. The signs and symptoms of potenti al delayed complications were discussed with the patient. Return to normal activities tomorrow. Written discharge instructions were provided to the patient. - The patient will be observed post-procedure, until all discharge criteria are met. - Discharge patient to home. - Resume regular diet. - Continue present medications. - Return to my office in 2 weeks. - The findings and recommendations were discuss ed with the patient and their family. - Await cytology results. Procedure Code(s): --- Professional --- 96880, Esophagogastroduodenoscopy, flexible, tr ansoral; with transendoscopic ultrasound-guided intramur al or transmural fine needle aspiration/biopsy(s) (in cludes endoscopic ultrasound examination of the esopha shanel, stomach, and either the duodenum or a surgicall y altered PATIENT NAME: ELIE CUEVAS [id number] stomach where the jejunum is examined distal to the anastomosis) Diagnosis Code(s): --- Professional --- D49.0, Neoplasm of unspecified behavior of dige stive system K31.89, Other diseases of stomach and duodenum CPT copyright 2018 [employer]. All rights reserved. The codes documented in this report are prelimin graciela and upon anaesthesiologist review may be revised to meet current compliance requiremen ts. Everton Ott MD Everton Ott MD 04/07/2020 7:57:32 AM This report has been signed electronically. Number of Addenda: 0 Note Initiated On: 04/07/2020 6:58 AM Provation {[id number] ProVation FT PDF at 0757 PATIENT NAME: ELIE CUEVAS [id number] 2020-03-22 14:10:00-00:00 [id number] [place] [address] PATIENT NAME: ELIE CUEVAS ADMIT DATE: ACCOUNT NO: [id number] ROOM NO: AGE: 55 REPORT TYPE: eELECTROCARDIOGRAM REPORT SEX: M ADMITTING PHYSICIAN: ATTENDING PHYSICIAN:Everton Ott MD Order: [id number] Test Reason : PRE-OP Test Date/Time Stamp: SatMar 22 2020 14:10:13 Blood Pressure : / mmHG Vent. Rate : 087 BPM Atrial Rate : 087 BPM P-R Int : 150 ms QRS Dur : 086 ms QT Int : 376 ms P-R-T Axes : 064 051 031 degree s QTc Int : 452 ms Normal sinus rhythm Minimal voltage criteria for LVH, may be normal variant Borderline ECG PRE_OP Confirmed by MARCOS NG MD ([id number]) on 03/22/20 3:37:04 PM Referred By: Everton Ott Confirmed by:MARCOS TRINH MD at 1687 PATIENT NAME: ELIE CUEVAS [id number]
[2023-05-03 18:34] LABS: Absolute Lymphocytes (CBC) 2.4 K/uL (0.7-4.9); Hematocrit 40.8 % (39.6-49.0); Lymphocytes % 33.4 % (15.3-44.8); MCV 82.5 fL (80-100); MPV 10.6 fL (7.6-11.3); Platelets 240 thou/uL (152-406); Protime INR 0.9; RBC Red Blood Cell Count 4.95 M/uL (4.33-5.43)
[2023-05-03 18:35] LABS: UR SODIUM < 15 mmol/L (27-287)
[2023-05-03 18:40] LABS: Specific Gravity 1.017 (1.005-1.030); Urine Bacteria None Seen /HPF (<20); Urine Bilirubin NEGATIVE (Negative); Urine Blood Negative (Negative); Urine Clarity Clear (Clear); Urine Color Light-Yellow (Yellow); Urine Glucose 4+ (Over) (Negative); Urine Protein TRACE (Negative); Urine RBC <5 /HPF (None Seen); Urine Urobilinogen Normal (Normal)
[2023-05-03 18:45] LABS: SARS-CoV-2 Antigen Rapid Res Negative (Negative)
[2023-05-03 19:07] LABS: ALT/SGPT 33 U/L (16-61); AST/SGOT 20 U/L (15-37); Alkaline Phosphatase 78 U/L (45-117); BUN Blood Urea Nitrogen 45 mg/dL (7-18); Bicarbonate 27 mEq/L (21-32); Bilirubin Total 0.3 mg/dL (0.2-1.0); Glomerular Filtration Rate 18 ml/min (=/>90); Glucose Level 96 mg/dL (74-106); Magnesium 2.9 mg/dL (1.6-2.4); NT PRO-BNP 12 pg/mL (<125); Potassium 3.6 mEq/L (3.5-5.1); Protein, Total 8.5 g/dL (6.4-8.2); Sodium Level 136 mEq/L (136-145); Troponin High Sensitivity 7.6 pg/mL (<58.9)
[2023-05-03 19:08] LABS: Bilirubin Direct < 0.1 mg/dL (0-0.2); Bilirubin Indirect, Calculated ND mg/dL (0.2-0.8)
--- NOTE | 2023-05-03 19:14 | ER ---
Nurse's Notes [facility] Name: Valeriano Lawrence Age: 58 yrs Sex: Male : 1965 Arrival Date: 05/03/2023 Time: 15:54 Bed 11 Private MD: Diagnosis: Acute kidney failure, unspecified Presentation: 05/03 16:18 Chief complaint: Patient states: "On Saturday I was here for Dehydration and I got mb9 fluids. My fingers started cramping yesterday, I still feel lightheaded and wake from cramps in my feet and hands. I vomited 2 days ago and just feel off. I just want to make sure everything is ok". Coronavirus screen: Vaccine status: Patient reports receiving the 2nd dose of the covid vaccine. Ebola Screen: No symptoms or risks identified at this time. Initial Sepsis Screen: Does the patient meet any 2 criteria? No. Patient's initial sepsis screen is negative. Does the patient have a suspected source of infection? No. Patient's initial sepsis screen is negative. Risk Assessment: Do you want to hurt yourself or someone else? Patient reports no desire to harm self or others. Onset of symptoms was May 03, 2023. 16:18 Method Of Arrival: Ambulatory mb9 16:18 Acuity: MEGAN 3 mb9 Triage Assessment: 16:20 General: Appears in no apparent distress. Behavior is calm, cooperative. Pain: Denies mb9 pain. Neuro: Singh Agitation-Sedation Scale (RASS): 0 - Alert and Calm Level of Consciousness is awake, alert, obeys commands, Oriented to person, place, time, situation, Appropriate for age Reports dizziness. Cardiovascular: Patient's skin is warm and dry. Respiratory: Airway is patent Respiratory effort is even, unlabored, Respiratory pattern is regular, symmetrical. GI: Reports vomiting. : No signs and/or symptoms were reported regarding the genitourinary system. Derm: Skin is pink, warm \\T\\ dry. Musculoskeletal: Range of motion: intact in all extremities. Historical: - Allergies: 16:21 No Known Allergies; mb9 - Home Meds: 16:21 amlodipine oral [Active]; atorvastatin oral [Active]; imatinib oral [Active]; valsartan mb9 oral [Active]; pantoprazole oral [Active]; Synjardy oral [Active]; Mounjaro subcutaneous [Active]; - PMHx: 16:21 Cancer - abdomen, removed; Diabetes - NIDDM; Hypertension; mb9 - PSHx: 16:21 None; mb9 - Immunization history:: Adult Immunizations up to date. - Social history:: Smoking status: Patient denies any tobacco usage or history of. Screenin:21 [facility] ED Fall Risk Assessment (Adult) History of falling in the last 3 months, mb9 including since admission No falls in past 3 months (0 pts) Confusion or Disorientation No (0 pts) Intoxicated or Sedated No (0 pts) Impaired Gait No (0 pts) Mobility Assist Device Used No (0 pt) Altered Elimination No (0 pt) Score/Fall Risk Level 0 - 2 = Low Risk Oriented to surroundings, Maintained a safe environment, Educated pt \\T\\ family on fall prevention, incl call for assistance when getting out of bed. Abuse screen: Denies threats or abuse. Nutritional screening: No deficits noted. Tuberculosis screening: No symptoms or risk factors identified. Assessment: 20:00 Reassessment: Patient and/or family updated on plan of care and expected duration. Pain mb9 level reassessed. Patient is alert, oriented x 3, equal unlabored respirations, skin warm/dry/pink. Patient states feeling better. Patient states symptoms have improved. 20:21 Reassessment: attempted to call report to admitting nurse. mb9 Vital Signs: 16:18 BP 108 / 83; Pulse 96; Resp 18; Temp 98.2(O); Pulse Ox 97% on R/A; Weight 83.91 kg; mb9 Height 5 ft. 10 in. ; 20:19 BP 146 / 82; Pulse 91; Resp 18; Pulse Ox 100% on R/A; mb9 16:18 Body Mass Index 26.54 (83.91 kg, 177.8 cm) mb9 ED Course: 16:00 Patient arrived in ED. im 16:08 Chelita Anne PA-C is PHCP. sb4 16:08 Emanuel Winters MD is Attending Physician. sb4 16:20 Triage completed. mb9 16:20 Arm band placed on. mb9 18:21 SARS RAPID Sent. aw1 18:21 Initial lab(s) drawn, by me, sent to lab. aw1 18:21 Inserted saline lock: 20 gauge in left antecubital area, using aseptic technique. aw1 19:13 Dwayne Chaparro MD is Hospitalizing Provider. sb4 20:00 Bed in low position. Call light in reach. Side rails up X 1. Client placed on mb9 continuous cardiac and pulse oximetry monitoring. NIBP monitoring applied. 20:22 No provider procedures requiring assistance completed. mb9 20:40 Patient admitted, IV remains in place. mb9 Administered Medications: 20:17 Drug: NS 0.9% IV 1000 ml Route: IV; Rate: 1 bolus; Site: left antecubital; ha1 20:17 Drug: NS 0.9% IV 1000 ml Route: IV; Rate: 1000 ml; Site: left antecubital; ha1 Medication: 20:21 VIS not applicable for this client. mb9 Outcome: 19:14 Decision to Hospitalize by Provider. sb4 20:41 Admitted to Med/surg via wheelchair, with chart. mb9 20:41 Condition: stable 20:41 Instructed on the need for admit. 20:44 Patient left the ED. mb9 Signatures: Elisabet Bess RN RN ha1 Chelita Anne PA-C PADusty sb4 Ana Weber RN RN mb9 Felicitas Chilel Alyssa aw1 Corrections: (The following items were deleted from the chart) 16:21 16:18 Chief complaint: Patient states: "On Saturday I was here for Dehydration and I got mb9 fluids. My fingers started cramping yesterday, I still feel lightheaded and wake from cramps in my feet and hands. I vomited 2 days ago." mb9 16:24 16:18 BP 99 / 76; Pulse 96bpm; Resp 18bpm; Pulse Ox 97% RA; Temp 98.2F Oral; mb9 mb9 16:25 16:18 BP 108 / 83; Pulse 96bpm; Resp 18bpm; Pulse Ox 97% RA; Temp 98.2F Oral; mb9 mb9
--- NOTE | 2023-05-03 19:14 | EDPHYS ---
Physician Documentation [facility] Name: Valeriano Lawrence Age: 58 yrs Sex: Male : 1965 Arrival Date: 05/03/2023 Time: 15:54 Bed 11 Private MD: ED Physician Emanuel Winters HPI: 05/03 16:32 This 58 yrs old Black Male presents to ER via Ambulatory with complaints of Dizziness, sb4 Doesn't Feel Right. 16:32 Onset: The symptoms/episode began/occurred 6 day(s) ago. The patient has experienced a sb4 previous episode, and the symptoms today are exactly the same. The patient has been recently seen at the [facility] Emergency Department, this week. Patient states that he was seen here on Saturday for feeling dizzy and generally unwell. He had a work-up that revealed he was dehydrated and hyperglycemic. He was given IV fluids and meclizine and discharged home. He states he was feeling better but started feeling poorly again yesterday. He reports feeling "off", dizzy, cramping in his hands. He denies any abdominal pain, nausea, fever, diarrhea. He states he does work out in the sun but has been hydrating. Historical: - Allergies: 16:21 No Known Allergies; mb9 - Home Meds: 16:21 amlodipine oral [Active]; atorvastatin oral [Active]; imatinib oral [Active]; valsartan mb9 oral [Active]; pantoprazole oral [Active]; Synjardy oral [Active]; Mounjaro subcutaneous [Active]; - PMHx: 16:21 Cancer - abdomen, removed; Diabetes - NIDDM; Hypertension; mb9 - PSHx: 16:21 None; mb9 - Immunization history:: Adult Immunizations up to date. - Social history:: Smoking status: Patient denies any tobacco usage or history of. ROS: 16:32 Constitutional: Negative for fever, chills, and weight loss, Eyes: Negative for injury, sb4 pain, redness, and discharge, ENT: Negative for injury, pain, and discharge, Cardiovascular: Negative for chest pain, palpitations, and edema, Respiratory: Negative for shortness of breath, cough, wheezing, and pleuritic chest pain, Abdomen/GI: Negative for abdominal pain, nausea, vomiting, diarrhea, and constipation, MS/Extremity: Negative for injury and deformity, Skin: Negative for injury, rash, and discoloration. 16:32 Neuro: Positive for dizziness, Negative for altered mental status, gait disturbance, headache, numbness, seizure activity, syncope. 16:32 All other systems are negative. Exam: 16:32 Constitutional: This is a well developed, well nourished patient who is awake, alert, sb4 and in no acute distress. Head/Face: Normocephalic, atraumatic. Eyes: Extra-ocular motions intact. Periorbital areas with no swelling, redness, or edema. ENT: Mucous membranes moist. Cardiovascular: Regular rate and rhythm with a normal S1 and S2. Respiratory: Lungs have equal breath sounds bilaterally, clear to auscultation and percussion. No rales, rhonchi or wheezes noted. No increased work of breathing, no retractions or nasal flaring. Abdomen/GI: Soft, non-tender, no distension. Skin: Warm, dry with normal turgor. Normal color with no rashes, no lesions, and no evidence of cellulitis. MS/ Extremity: Pulses equal, no cyanosis. Neurovascular intact. Full, normal range of motion. Neuro: Awake and alert, GCS 15, oriented to person, place, time, and situation. Cranial nerves II-XII grossly intact. Motor strength 5/5 in all extremities. Sensory grossly intact. Cerebellar exam normal. Normal gait. Vital Signs: 16:18 BP 108 / 83; Pulse 96; Resp 18; Temp 98.2(O); Pulse Ox 97% on R/A; Weight 83.91 kg; mb9 Height 5 ft. 10 in. ; 20:19 BP 146 / 82; Pulse 91; Resp 18; Pulse Ox 100% on R/A; mb9 16:18 Body Mass Index 26.54 (83.91 kg, 177.8 cm) mb9 MDM: 16:08 Patient medically screened. sb4 16:32 Differential diagnosis: cardiac arrhythmia, generalized weakness, hypovolemia, sb4 idiopathic dizziness, near-syncope, TIA, vertigo, electrolyte abnormality, hypothyroidism, hyperthyroidism, hyperglycemia, hypoglycemia, covid. 19:12 Data reviewed: vital signs, nurses notes, lab test result(s), radiologic studies, and sb4 as a result, I will admit patient. Consideration of Admission/Observation Patient was admitted/placed on observation. Management of patient was discussed with the following: Hospitalist: Deangelo LANCASTER. Counseling: I had a detailed discussion with the patient and/or guardian regarding: the historical points, exam findings, and any diagnostic results supporting the discharge/admit diagnosis, lab results, the need for further work-up and treatment in the hospital. 05/03 16:27 Order name: Basic Metabolic Panel; Complete Time: 19:09 sb4 05/03 16:27 Order name: CBC with Diff; Complete Time: 18:51 sb4 05/03 16:27 Order name: LFT's; Complete Time: 19:09 sb4 05/03 16:27 Order name: Magnesium; Complete Time: 19:09 sb4 05/03 16:27 Order name: NT PRO-BNP; Complete Time: 19:09 sb4 05/03 16:27 Order name: PT-INR; Complete Time: 18:51 sb4 05/03 16:27 Order name: Troponin HS; Complete Time: 19:09 sb4 05/03 16:27 Order name: TSH; Complete Time: 19:09 sb4 05/03 16:27 Order name: Urine Sodium Random sb4 05/03 16:27 Order name: UAM; Complete Time: 18:51 sb4 05/03 16:27 Order name: SARS RAPID; Complete Time: 18:51 sb4 05/03 16:46 Order name: CPK; Complete Time: 18:56 sb4 05/03 16:27 Order name: EKG; Complete Time: 16:28 sb4 05/03 16:27 Order name: Cardiac monitoring; Complete Time: 20:17 sb4 05/03 16:27 Order name: IV Saline Lock; Complete Time: 18:21 sb4 05/03 16:27 Order name: Labs collected and sent; Complete Time: 18:21 sb4 05/03 16:27 Order name: O2 Per Protocol; Complete Time: 20:17 sb4 05/03 16:27 Order name: O2 Sat Monitoring; Complete Time: 20:17 sb4 Administered Medications: 20:17 Drug: NS 0.9% IV 1000 ml Route: IV; Rate: 1 bolus; Site: left antecubital; ha1 20:17 Drug: NS 0.9% IV 1000 ml Route: IV; Rate: 1000 ml; Site: left antecubital; ha1 Disposition Summary: 05/03/23 19:14 Hospitalization Ordered Hospitalization Status: Observation sb4 Provider: Dwayne Chaparro Location: Telemetry/MedSurg (observation) sb4 Condition: Fair sb4 Problem: new sb4 Symptoms: are unchanged sb4 Bed/Room Type: Standard sb4 Room Assignment: 214(05/03/23 19:47) cg Diagnosis - Acute kidney failure, unspecified sb4 Forms: - Medication Reconciliation Form sb4 - SBAR form sb4 Addendum: 05/05/2023 10:38 Co-signature as Attending Physician, Emanuel Winters MD I reviewed the patient's care r t provided by the Advanced Practice Provider and agree with the diagnosis and treatment plan. Signatures: Dispatcher [employer] EDMS Deangelo Arellano, OPERATIONS ENGINEER-C OPERATIONS ENGINEER-Cla1 Emily Ng RN RN Elisabet Bess RN RN 1 Chelita Anne PAMindyC PAMindyC sb4 Ana Weber RN RN mb9 Emanuel Winters MD MD rt Corrections: (The following items were deleted from the chart) 05/03 16:27 16:27 EKG - Nurse/Tech ordered. sb4 sb4 19:47 19:14 sb4 cg
--- NOTE | 2023-05-03 19:59 | P.HP ---
Certification for Inpatient Patient admitted to: Inpatient With expected LOS: >2 Midnights Patient will require the following post-hospital care: None Practitioner: I am a practitioner with admitting privileges, knowledge of patient current condition, hospital course, and medical plan of care. Services: Services provided to patient in accordance with Admission requirements found in Title 42 Section 412.3 of the Code of Federal Regulations Patient History Date of Service: 05/03/23 Reason for admission: Acute kidney injury History of Present Illness: 58-year-old male with history of diabetes, hypertension presents the emergency department chief complaint of feeling unwell. He was seen on 04/28/2023 and found to have TORRES, hyperglycemia, he was given IV fluids and subsequently discharged. He reports working out in the hot sun and has been feeling unwell. Labs performed today show a creatinine of 3.81 GFR of 18 BUN of 45 magnesium 2.9 glucose was 96 CBC was unremarkable. Patient need to be admitted for acute kidney injury. Allergies No Known Allergies Allergy (Unverified 01/10/16 00:57) - Past Medical/Surgical History -: Hypertension -: Diabetes mellitus type [id number] Past Surgical History: Reviewed- Non-Contributory Psychosocial/ Personal History: Patient lives at home with his family - Family History Family History: Reviewed- Non-Contributory - Social History Smoking Status: Never smoker Alcohol use: No CD- Drugs: No Caffeine use: Yes Place of Residence: Home Review of Systems 10-point ROS is otherwise unremarkable General: Malaise Gastrointestinal: Nausea Physical Examination - Physical Exam General: Alert, In no apparent distress, Oriented x3 HEENT: Atraumatic, PERRLA, Mucous membr. moist/pink, EOMI, Sclerae nonicteric Neck: Supple, 2+ carotid pulse no bruit, No LAD, Without JVD or thyroid abn ormality Respiratory: Clear to auscultation bilaterally, Normal air movement Cardiovascular: Regular rate/rhythm, Normal S1 S2 Gastrointestinal: Normal bowel sounds, No tenderness Musculoskeletal: No tenderness Integumentary: No rashes Neurological: Normal gait, Normal speech, Normal strength at 5/5 x4 extr, Normal tone, Normal affect Lymphatics: No axilla or inguinal lymphadenopathy - Studies Laboratory Data (last 24 hrs) 05/03/23 05/03/23 05/03/23 18:17 18:17 18:17 WBC 7.20 Hgb 13.3 L Hct 40.8 Plt Count 240 PT 9.9 INR 0.90 Sodium 136 Potassium 3.6 BUN 45 H Creatinine 3.81 H Glucose 96 Magnesium 2.9 H Total Bilirubin 0.3 AST 20 ALT 33 Alkaline Phosphatase 78 Assessment and Plan - Plan Assessment: Acute kidney injury Diabetes mellitus type [id number] Hypertension Plan: Acute kidney injury Suspect secondary to dehydration/hypovolemia/heat exhaustion. Given 2 L NS in ED, continue IV fluids overnight. Obtain renal ultrasound, nephrology consult. Hold any ZECHARIAH/ARB, metformin. Diabetes mellitus type [id number]-[id number] ACHS Accu-Chek, sliding scale insulin, A1c in the morning. Hypertension Continue home medications holding any ZECHARIAH/ARB. DVT PPX: Heparin subcu Code status: Full Discharge Plan: Home Plan to discharge in: 72 Hours - Advance Directives Does patient have a Living Will: No Does patient have a Durable POA for Healthcare: No - Code Status/Comfort Care Code Status Assessed: Yes (Full code) Critical Care: No Time Spent Managing Pts Care (In Minutes): 55
[2023-05-03] MEDS ORDERED: NA CHLORIDE 0.9% 2,000 ML ONE (20:19)
[2023-05-03] MEDS ORDERED: ONDANSETRON 4 MG/2 ML VIAL IV PRN (21:16)
[2023-05-03] MEDS: INSULIN -REGULAR HUMAN 50 UNIT/0.5 ML ML SQ SCH (21:16)
[2023-05-03] MEDS: NA CHLORIDE 0.9% 1,000 ML IV SCH (21:37)
[2023-05-03] MEDS: HEPARIN 5000 UNIT/ML 1 ML VIAL SQ SCH (21:37)
[2023-05-03 22:19] VITALS: BMI 28.1
[2023-05-04 04:40] VITALS: O2SAT 99
[2023-05-04] MEDS: NA CHLORIDE 0.9% 1,000 ML IV SCH ×2 (06:27→15:32)
[2023-05-04 06:58] LABS: Absolute Lymphocytes (CBC) 1.8 K/uL (0.7-4.9); Hematocrit 34.6 % (39.6-49.0); Lymphocytes % 34.1 % (15.3-44.8); MCV 83.2 fL (80-100); MPV 11.1 fL (7.6-11.3); Platelets 187 thou/uL (152-406); RBC Red Blood Cell Count 4.16 M/uL (4.33-5.43)
[2023-05-04 07:23] LABS: Potassium 3.7 mEq/L (3.5-5.1); Thyroid Stimulating Hormone 1.22 uIU/mL (0.358-3.740)
[2023-05-04] MEDS: INSULIN -REGULAR HUMAN 50 UNIT/0.5 ML ML SQ SCH ×4 (07:30→20:10)
--- NOTE | 2023-05-04 07:39 | RAD REPORT ---
EXAM DESCRIPTION: US - Renal Ultrasound-Complete - 05/04/2023 6:33 am CLINICAL HISTORY: arf Flank pain COMPARISON: <Comparisons> FINDINGS: Both kidneys are normal in size, shape and echotexture. The right kidney measures 11.3 x 6.6 x 6.0 cm. Small benign cyst is present along the cortex measurin g 12 mm No hydronephrosis, focal mass or perinephric fluid. The left kidney measures 10.4 x 6.7 x 5.5 cm. Small benign cyst is present parapelvic region measurin g 10 mm. No hydronephrosis, focal mass or perinephric fluid. The urinary bladder is incompletely distended without gross abnormality seen. IMPRESSION: Small benign bilateral renal cysts, otherwise negative study.
[2023-05-04 08:28] LABS: UR PROTEIN 30.7 mg/dL (<11.9)
[2023-05-04] MEDS: HEPARIN 5000 UNIT/ML 1 ML VIAL SQ SCH ×2 (09:23→20:07)
--- NOTE | 2023-05-04 10:52 | P.PN ---
Subjective Date of Service: 05/04/23 Chief Complaint: Acute kidney injury No acute events since admission. He reports that he continues to feel malaise, but he feels that his symptoms are improving. He denies any fevers, chills, chest pain, palpitations, shortness of breath, or any changes in urinary output/frequency. Review of Systems 10-point ROS is otherwise unremarkable General: Malaise Physical Examination - Vital Signs Temperature: 98.0 F Blood Pressure: 137/86 Pulse: 74 Respirations: 16 Pulse Ox (%): 100 - Physical Exam General: Alert, In no apparent distress, Oriented x3 HEENT: Atraumatic, Mucous membr. moist/pink, Sclerae nonicteric Neck: JVD not distended Respiratory: Clear to auscultation bilaterally, Normal air movement Cardiovascular: No edema, Regular rate/rhythm, Normal S1 S2, No gallops, No rubs, No murmurs Gastrointestinal: Normal bowel sounds, Soft and benign, Non-distended, No tenderness, No rebound, No guarding Musculoskeletal: No clubbing Integumentary: No rashes Neurological: Normal speech, Normal affect - Studies Laboratory Data (last 24 hrs) 05/03/23 05/03/23 05/03/23 18:17 18:17 18:17 WBC 7.20 Hgb 13.3 L Hct 40.8 Plt Count 240 PT 9.9 INR 0.90 Sodium 136 Potassium 3.6 BUN 45 H Creatinine 3.81 H Glucose 96 Magnesium 2.9 H Total Bilirubin 0.3 AST 20 ALT 33 Alkaline Phosphatase 78 Assessment And Plan - Plan # KDIGO Stage II Acute Kidney Injury on possible Chronic Kidney Disease Stage III # Glucosuria secondary to SGLT-2 Inhibitor Use TORRES is likely multifactorial due to heat exhaustion/dehydration in combination with valsartan-hydrochlorothiazide, empagliflozin-metformin, and imatinib. - Evaluation: - Creatinine = 3.81 -> 2.70 (creatinine was 1.65 on 04/28/2023) - Urinalysis = 4+ glucose, trace protein - Renal ultrasound = "small benign bilateral renal cysts, otherwise negative study." - Management plan: - Nephrology consulted - recommendations appreciated - Continue Normal Saline @ 100 mL/hr - Monitor creatinine and urine output - Renally dose medications - Hold nephrotoxic agents # Type II Diabetes Mellitus - Ordered Hgb A1c - Correction scale insulin - Hold home empagliflozin-metformin given TORRES # Hypertension - Hold home valsartan-hydrochlorothiazide given TORRES # History of Gastrointestinal Stromal Tumor - Hold home imatinib given TORRES Jose Gardner M.D.
[2023-05-04] MEDS ORDERED: NA CHLORIDE 0.9% 1,000 ML IV ONE (13:00)
[2023-05-04] MEDS ORDERED: POTASSIUM CL SA 10 MEQ TAB PO ONE (14:00)
--- NOTE | 2023-05-04 15:57 | CON ---
Date of Consultation: 05/04/2023 Reason For Consultation: Elevated BUN and creatinine. History Of Present Illness: This is a pleasant 58-year-old gentleman with significant past medical h istory of diabetes since 1999 complicated with retinopathy, no nephropathy, hypertension, hyperlipide escobar, the patient was in his regular state of health. The patient recently admitted, came to the ER w ith weakness and dehydration, treated with hydration, discharged. The patient continued to feel weak , continued to work outside, came with the same symptoms, found to have elevation in BUN and creatini ne of 3.8 with GFR of 18 and dehydration with heat exhaustion. For that reason, the patient was admi tted. The patient denied taking any nonsteroidal, no IV contrast. The patient apparently has been o n lisinopril and hydrochlorothiazide. Over the night, the patient was started on IV hydration. Kidney function has been improved. Hemoglo bin dropped from 13 to 11 and creatinine improved from 3.8 to 2.7. Past Medical History: Includes: 1.Diabetes complicated with retinopathy, no neuropathy. 2.Hypertension. 3.Hyperlipidemia. Allergies: NO KNOWN DRUG ALLERGIES. Family History: Positive for hypertension. Social History: Denied smoking. Denied drinking. Denied drug abuse. Review of Systems: Head and Neck: No red eye. No ear pain. GI: No nausea. No vomiting. : No polyuria. No dysuria. No hematuria. Has foamy urine. Orchestrator: Not applicable. Respiratory: No shortness of breath. Cardiovascular: No chest pain. Musculoskeletal: Fatigue and cramp. Endocrine: No polydipsia. Skin: No rash. Physical Examination: Vital Signs: When I saw the patient; blood pressure 121/68, pulse of 79, afebrile. Chest: Clear to auscultation. Heart: S1, S2. Regular. Abdomen: Soft, nontender. Extremities: No edema. Neurologic: Alert. No focality. Laboratory Data: Upon admission; sodium 136, potassium 3.6, creatinine 3.8, GFR of 18. Hemoglobin 1 3.3. Current lab data; sodium 140, potassium 3.7, bicarb 27, BUN 36, creatinine 2.7, calcium 8.3. W BC 5.2, H and H 11.4/34.6. Urinalysis: Negative for infection, specific gravity of 1.017. Renal ul trasound showing normal-sized kidney, no hydronephrosis 11.3/10.4. Bilateral renal cysts small, trevin gn. Assessment And Plan: 1.Acute kidney injury secondary to prerenal, dehydration, superimposed with ZECHARIAH inhibitor and hydroc hlorothiazide on the recovery phase, looked to me still on the dry side. I am going to bolus the pat ient with another liter, then continue on the current rate. Keep holding ZECHARIAH inhibitor and hydrochlo rothiazide. We will monitor. 2.Hypertension. Currently, blood pressure controlled with the present acute kidney injury. Hold hy drochlorothiazide and lisinopril. 3.Hypokalemia. I will supplement. 4.Hyponatremia secondary to depletional, recovered, resolved. Time spent examining the patient [id number], reviewing data, lab and radiology, placing the order, discussing the case with the patient, discussing the case with the produce team lead including nursing staff more than 45 minutes. JUAN Voice ID: [id number] Report ID: [id number]
[2023-05-04] MEDS ORDERED: MECLIZINE HCL 12.5 MG TAB PO ONE (19:59)
[2023-05-05] MEDS: NA CHLORIDE 0.9% 1,000 ML IV SCH (02:19)
[2023-05-05 03:19] LABS: Hematocrit 33.9 % (39.6-49.0); Lymphocytes % 40.9 % (15.3-44.8); MCV 83.9 fL (80-100); MPV 11.2 fL (7.6-11.3); Platelets 171 thou/uL (152-406); RBC Red Blood Cell Count 4.05 M/uL (4.33-5.43)
[2023-05-05 03:32] LABS: Potassium 4.2 mEq/L (3.5-5.1)
[2023-05-05] MEDS: INSULIN -REGULAR HUMAN 50 UNIT/0.5 ML ML SQ SCH (07:30)
[2023-05-05] MEDS: HEPARIN 5000 UNIT/ML 1 ML VIAL SQ SCH (08:47)
[2023-05-05 08:51] VITALS: BP 148/85; TEMP 98.9
--- NOTE | 2023-05-05 08:58 | P.DS ---
Admission Date: 05/03/23 Discharge Date: 05/05/23 Disposition: ROUTINE DISCHARGE Discharge Condition: GOOD Reason for Admission: Acute kidney injury Consultations: 1. Nephrology Hospital Course: DIAGNOSES: # KDIGO Stage II Acute Kidney Injury on possible Chronic Kidney Disease Stage III # Glucosuria secondary to SGLT-2 Inhibitor Use # Type II Diabetes Mellitus # Hypertension # History of Gastrointestinal Stromal Tumor HOSPITAL COURSE: Mr. Valeriano Lawernce is a pleasant 58 year old male with a past medical history significant for gastrointestinal stromal tumor s/p surgery (2020) on imatinib, type II diabetes mellitus, and hypertension who was admitted to the [facility] on 05/03/2023 for an acute kidney injury. He was admitted to the Medicine service. Upon further evaluation, his initial creatinine was 3.81. He was thought to have developed a pre-renal acute kidney injury due to dehydration/heat exhaustion from working outside in the hot temperatures. He was also noted to be taking several potential nephrotoxic medications (valsartan-hydrochlorothiazide, empagliflozin-metformin, and imatinib) His renal ultrasound revealed, "small benign bilateral renal cysts, otherwise negative study." Nephrology was consulted and he was evaluated by Dr. Tamayo. He was treated with IV hydration and, over the course of his hospita lization, his symptoms as well as his creatinine improved significantly. His baseline creatinine is unknown, but was 1.65 on 04/28/2023. Dr. Tamayo has cleared him for discharge with outpatient follow-up. He was advised to hold valsartan-hydrochlorothiazide and empagliflozin-metformin until he sees Dr. Tamayo this week. He was advised to hold his imatinib until he speaks with his Oncologist (Dr. Velez) tomorrow. On 05/05/2023, he was seen on morning rounds and deemed medically stable for discharge. He was discharged with instructions to schedule follow-up appointments with his PCP (Dr. Elder), with Nephrology (Dr. Tamayo), and with his Oncologist (Dr. Velez). He was advised not to take NSAIDs. He and his were given the opportunity to ask questions and reported no further que stions. Furthermore, all questions were answered to the best of my ability. A copy of this discharge summary will be sent to the above providers to facilitate continuity of care. Today, I personally spent 25 minutes on his case, of which greater than 50% of the time was spent in patient education, counseling, and coordination of care as described above. - Physical Exam General: Alert, In no apparent distress, Oriented x3 HEENT: Atraumatic, Mucous membr. moist/pink, Sclerae nonicteric Respiratory: Clear to auscultation bilaterally, Normal air movement Cardiovascular: No edema, Regular rate/rhythm, No murmurs Gastrointestinal: Normal bowel sounds, Soft, Non-distended, No tenderness Musculoskeletal: No clubbing Integumentary: No rashes Neurological: Normal speech, Normal affect Vital Signs/Physical Exam: Temp Pulse Resp BP Pulse Ox 98.9 F 79 18 148/85 H 100 05/05/23 08:00 05/05/23 08:00 05/05/23 08:00 05/05/23 08:00 05/05/23 08:00 Laboratory Data at Discharge: WBC 5.00 thou/uL (4.3-10.9) 05/05/23 02:44 Hgb 11.1 g/dL (13.6-17.9) L 05/05/23 02:44 Hct 33.9 % (39.6-49.0) L 05/05/23 02:44 Plt Count 171 thou/uL (152-406) 05/05/23 02:44 PT 9.9 SECONDS (9.5-12.5) 05/03/23 18:17 INR 0.90 05/03/23 18:17 Sodium 139 mEq/L (136-145) 05/05/23 02:44 Potassium 4.2 mEq/L (3.5-5.1) D 05/05/23 02:44 BUN 19 mg/dL (7-18) H 05/05/23 02:44 Creatinine 1.67 mg/dL (0.70-1.30) H 05/05/23 02:44 Glucose 101 mg/dL (74-106) 05/05/23 02:44 Uric Acid 10.1 mg/dL (3.5-7.2) H 05/04/23 09:35 Magnesium 2.9 mg/dL (1.6-2.4) H 05/03/23 18:17 Total Bilirubin 0.3 mg/dL (0.2-1.0) 05/03/23 18:17 AST 20 U/L (15-37) 05/03/23 18:17 ALT 33 U/L (16-61) 05/03/23 18:17 Alkaline Phosphatase 78 U/L (45-117) 05/03/23 18:17 Home Medications: Amlodipine [Norvasc] 10 mg PO DAILY 05/03/23 Empagliflozin/Metformin HCl [Synjardy Xr 25-1,000 mg Tablet] 1 tab PO DAILY 05/03/23 Imatinib Mesylate 0.5 tab PO DAILY 05/03/23 Tirzepatide [Mounjaro] 10 mg SQ SEECOM 05/03/23 Physician Discharge Instructions: 1. Please call and schedule a follow-up appointment with your PCP (Dr. Elder) in 3-5 days - Your blood work showed mild anemia. Please discuss further evaluation (including colonoscopy) with your PCP 2. Please call and schedule a follow-up appointment with Nephrology (Dr. Tamayo) in 3-5 days - Please have him repeat your kidney bloodwork - Please hold your valsartan-hydrochlorothiazide and empagliflozin-metformin until cleared by Dr. Tamayo - Please do not take any pinf-[id number] anti-inflammatory medications. If needed, you may take Tylenol (acetaminophen) - Your ultrasound showed cysts on your kidneys. Please discuss with Nephrology 3. Please call and schedule a follow-up appointment with your Oncologist (Dr. Velez) in 3-5 days - Please hold your imatinib (Gleevac) until you speak to your Oncologist Diet: Renal Activity: Ad kaiden Followup: Anuradha Elder MD [OUTSIDE PHYSICIAN] - Nory Tamayo MD [ACTIVE - CAN ADMIT] - Time spent managing pt's care (in minutes): 25
== END 2023-05-05 10:30 | disposition home or self-care (01) | DRG 683 ==
LOC: ER 15:54 → ERHOLD 19:42 → 2ND 19:51
PROVIDERS: ADMIT Internal Medicine; ATTEND Internal Medicine
DX: N17.9 Acute kidney failure, unspecified (principal); E87.1 Hypo-osmolality and hyponatremia; E86.0 Dehydration; I12.9 Hypertensive chronic kidney disease with stage 1 through stage 4 chronic kidney disease, or unspecified chronic kidney disease; N18.30 Chronic kidney disease, stage 3 unspecified; E11.22 Type 2 diabetes mellitus with diabetic chronic kidney disease; D63.1 Anemia in chronic kidney disease; N28.1 Cyst of kidney, acquired; E87.6 Hypokalemia; T67.5XXA Heat exhaustion, unspecified, initial encounter; T46.5X5A Adverse effect of other antihypertensive drugs, initial encounter; T38.3X5A Adverse effect of insulin and oral hypoglycemic [antidiabetic] drugs, initial encounter; T45.1X5A Adverse effect of antineoplastic and immunosuppressive drugs, initial encounter; Z79.899 Other long term (current) drug therapy
CPT/HCPCS: 36415; 76770; 80048; 80076; 81001; 82550; 82570; 82947; 83036; 83735; 83880; 83970; 84156; 84300; 84439; 84443; 84484; 84550; 85025; 85610; 87811; 99285; J1644; J2405; J7030; J8597

== ENCOUNTER → 2023-10-24 | Emergency (ER) | payer BC ==
[~2023-10-24] MED LIST: INSULIN REGULAR (HUMAN) 100 UNIT/ML ONE; NA CHLORIDE 0.9% 1,000 ML ONE; ONDANSETRON 4 MG/2 ML VIAL ONE
[2023-10-24 18:06] LABS: Specific Gravity 1.025 (1.005-1.030); Urine Bacteria None Seen /HPF (<20); Urine Bilirubin NEGATIVE (Negative); Urine Blood Negative (Negative); Urine Clarity Clear (Clear); Urine Color Colorless (Yellow); Urine Glucose 4+ (Over) (Negative); Urine Protein 1+ (Negative); Urine RBC <5 /HPF (None Seen); Urine Urobilinogen Normal (Normal); Urine pH 5.5 (5.0-7.0)
[2023-10-24 18:10] LABS: Absolute Lymphocytes (CBC) 1.9 K/uL (0.7-4.9); Hematocrit 35.1 % (39.6-49.0); Lymphocytes % 28.5 % (15.3-44.8); MCV 81.9 fL (80-100); MPV 10.6 fL (7.6-11.3); Platelets 186 thou/uL (152-406); RBC Red Blood Cell Count 4.28 M/uL (4.33-5.43)
[2023-10-24 18:27] LABS: Albumin 3.2 g/dL (3.4-5.0); Bilirubin Total 0.2 mg/dL (0.2-1.0); Potassium 3.7 mEq/L (3.5-5.1); Protein, Total 7.1 g/dL (6.4-8.2)
--- NOTE | 2023-10-24 22:14 | ER ---
Nurse's Notes [facility] Name: Valeriano Lawrence Age: 58 yrs Sex: Male : 1965 Arrival Date: 10/24/2023 Time: 17:09 Bed 2 Private MD: Diagnosis: Diabetes mellitus due to underlying condition with hyperglycemia;Hypertensive heart and chronic kidney disease with heart failure and stage 1 through stage 4 chronic kidney disease, or unspecified chronic kidney disease Presentation: 10/24 17:23 Chief complaint: Patient states: elevated blood sugar X1 week. Pt reports having cm10 frequent urination and increased thirst. Coronavirus screen: Vaccine status: Patient reports receiving the 2nd dose of the covid vaccine. Client denies travel out of the [place] in the last 14 days. Ebola Screen: Patient denies travel to an Ebola-affected area in the 21 days before illness onset. No symptoms or risks identified at this time. Initial Sepsis Screen: Does the patient meet any 2 criteria? No. Patient's initial sepsis screen is negative. Does the patient have a suspected source of infection? No. Patient's initial sepsis screen is negative. Risk Assessment: Do you want to hurt yourself or someone else? Patient reports no desire to harm self or others. Onset of symptoms was October 24, 2023. 17:23 Method Of Arrival: Ambulatory cm10 17:23 Acuity: MEGAN 3 cm10 Historical: - Allergies: 17:26 No Known Allergies; cm10 - PMHx: 17:26 Cancer - abdomen; Diabetes - NIDDM; Hypertension; cm10 - Immunization history:: Adult Immunizations up to date. - Social history:: Smoking status: Patient denies any tobacco usage or history of. Screenin:00 [facility] ED Fall Risk Assessment (Adult) History of falling in the last 3 months, jw7 including since admission No falls in past 3 months (0 pts). [facility] ED Fall Risk Assessment (Adult) Score/Fall Risk Level 0 - 2 = Low Risk Oriented to surroundings, Maintained a safe environment, Educated pt \T\ family on fall prevention, incl call for assistance when getting out of bed. Abuse screen: Denies threats or abuse. Denies injuries from another. Nutritional screening: No deficits noted. Tuberculosis screening: No symptoms or risk factors identified. Assessment: 19:00 General: Appears in no apparent distress. comfortable, Behavior is calm, cooperative. jw7 Pain: Denies pain. Neuro: Singh Agitation-Sedation Scale (RASS): 0 - Alert and Calm Level of Consciousness is awake, alert, obeys commands, Oriented to person, place, time, situation. Cardiovascular: Capillary refill < 3 seconds Clubbing of nail beds is absent JVD is absent Patient's skin is warm and dry. Respiratory: Airway is patent Trachea midline Respiratory effort is even, unlabored, Respiratory pattern is regular, symmetrical. GI: Abdomen is round non-distended, Bowel sounds present X 4 quads. Abd is soft and non tender X 4 quads. : No deficits noted. No signs and/or symptoms were reported regarding the genitourinary system. EENT: No deficits noted. No signs and/or symptoms were reported regarding the EENT system. Derm: Skin is intact, is healthy with good turgor, Skin is dry, Skin is normal, Skin temperature is warm. Musculoskeletal: Circulation, motion, and sensation intact. Range of motion: intact in all extremities. 20:00 Reassessment: Patient appears in no apparent distress at this time. No changes from jw7 previously documented assessment. Patient and/or family updated on plan of care and expected duration. Pain level reassessed. Patient is alert, oriented x 3, equal unlabored respirations, skin warm/dry/pink. 21:00 Reassessment: Patient appears in no apparent distress at this time. No changes from jw7 previously documented assessment. Patient and/or family updated on plan of care and expected duration. Pain level reassessed. Patient is alert, oriented x 3, equal unlabored respirations, skin warm/dry/pink. 22:00 Reassessment: Patient appears in no apparent distress at this time. No changes from jw7 previously documented assessment. Patient and/or family updated on plan of care and expected duration. Pain level reassessed. Patient is alert, oriented x 3, equal unlabored respirations, skin warm/dry/pink. 23:00 Reassessment: Patient appears in no apparent distress at this time. Patient and/or jw7 family updated on plan of care and expected duration. Pain level reassessed. Patient is alert, oriented x 3, equal unlabored respirations, skin warm/dry/pink. Patient states feeling better. Patient states symptoms have improved. Vital Signs: 17:23 BP 135 / 87; Pulse 92; Resp 16; Temp 98.1; Pulse Ox 98% on R/A; Weight 92.99 kg (R); cm10 Height 5 ft. 10 in. (R); Pain 0/10; 18:00 BP 116 / 74; Pulse 80; tm6 19:00 BP 129 / 71; Pulse 77; tm6 20:00 BP 137 / 80; Pulse 78; tm6 21:00 BP 160 / 92; Pulse 76; tm6 22:00 BP 158 / 103; Pulse 74; tm6 23:00 BP 142 / 94; Pulse 68; tm6 17:23 Body Mass Index 29.41 (92.99 kg, 177.8 cm) cm10 17:23 Pain Scale: Adult cm10 ED Course: 17:16 Patient arrived in ED. mg5 17:17 Nestor Krishna PA is PHCP. cp 17:17 Jean Marie Pisano MD is Attending Physician. cp 17:26 Triage completed. cm10 17:27 Arm band placed on Patient placed in an exam room, on a stretcher. cm10 17:38 Velma Brennan, RN is Primary Nurse. ko1 17:54 Urinalysis w/ reflexes Sent. ko1 18:02 CBC with Diff Sent. ko1 18:02 CMP Sent. ko1 18:02 Lipase Sent. ko1 19:00 Patient has correct armband on for positive identification. Bed in low position. Call jw7 light in reach. 23:23 Provided Education on: discharge instructions and glucose control through medication jw7 and diet/exercise. 23:23 No provider procedures requiring assistance completed. IV discontinued, intact, jw7 bleeding controlled, No redness/swelling at site. Pressure dressing applied. Administered Medications: 18:06 Drug: NS 0.9% IV 1000 ml IV at 1 bolus Per protocol; 1000 mL bolus Route: IV; Rate: 1 ko1 bolus; Site: right antecubital; 20:29 Follow up: Response: No adverse reaction; IV Status: Completed infusion; IV Intake: jw7 1000ml 18:06 Drug: Ondansetron IVP 4 mg IVP once; over 2 minutes Route: IVP; Site: right antecubital;ko1 20:29 Follow up: Response: No adverse reaction jw7 18:06 Drug: Insulin Regular Human Sub-Q 10 units Sub-Q once {Co-Signature: aa5 (antoine Blood RN).} Route: Sub-Q; Site: left lower abdomen; 20:29 Follow up: Response: No adverse reaction; Marked relief of symptoms jw7 19:37 Drug: NS 0.9% IV 1000 ml IV at 1 bolus Per protocol; 1000 mL bolus Route: IV; Rate: 1 jw7 bolus; Site: right antecubital; 23:22 Follow up: Response: No adverse reaction; IV Status: Completed infusion; IV Intake: jw7 1000ml 20:45 Drug: Insulin Regular Human IVP 7 units IVP once {Co-Signature: tm6 (Greg Gilbert RN).} Route: IVP; Site: right antecubital; 23:22 Follow up: Response: No adverse reaction; Marked relief of symptoms jw7 Medication: 23:24 VIS not applicable for this client. jw7 Point of Care Testing: Blood Glucose: 17:27 Blood Glucose: 375 mg/dL; cm10 Ranges: Intake: 20:29 IV: 1000ml; Total: 1000ml. jw7 23:22 IV: 1000ml; Total: 2000ml. jw7 Outcome: 22:13 Discharge ordered by . kavitha 23:23 Discharged to home ambulatory, jw7 23:23 Condition: stable 23:23 Discharge instructions given to patient, Instructed on discharge instructions, follow up and referral plans. Demonstrated understanding of instructions, follow-up care, 23:24 Patient left the ED. jw7 Signatures: Nestor Krishna PA PA cp Waits, Jodi, RN RN jw7 Velma Brennan RN RN ko1 Katey Faulkner RN RN 10 Sri Bartholomew mg5 Greg Gilbert, RN RN tm6 Claribel Blood RN aa5 Greg Gilbert RN tm6 Corrections: (The following items were deleted from the chart) 17:27 17:26 PMHx: Cancer - abdomen; cm10 cm10 23:24 18:02 BETA HYDROXYBUTYRATE+C.LAB.BRZ drawn and sent. antoine edwards
--- NOTE | 2023-10-24 22:14 | EDPHYS ---
Physician Documentation [facility] Name: Valeriano Lawrence Age: 58 yrs Sex: Male : 1965 Arrival Date: 10/24/2023 Time: 17:09 Bed 2 Private MD: ED Physician Jean Marie Pisano HPI: 10/24 17:30 This 58 yrs old Black Male presents to ER via Ambulatory with complaints of High Blood cp Sugar. 17:30 The patient or guardian reports hyperglycemia, that was potentially precipitated by ran cp out of prescribed Levemir. Onset: The symptoms/episode began/occurred 1 week(s) ago. 17:30 Associated signs and symptoms: Pertinent positives: polydipsia, polyuria, blurry cp vision. Current symptoms: In the emergency department the patient's symptoms are unchanged from the initial presentation, despite home interventions. Historical: - Allergies: 17:26 No Known Allergies; cm10 - PMHx: 17:26 Cancer - abdomen; Diabetes - NIDDM; Hypertension; cm10 - Immunization history:: Adult Immunizations up to date. - Social history:: Smoking status: Patient denies any tobacco usage or history of. ROS: 17:35 Constitutional: Negative for body aches, chills, fever, poor PO intake, cp 17:35 Eyes: Negative for injury, pain, redness, and discharge, cp 17:35 Respiratory: Negative for cough, shortness of breath, wheezing, 17:35 Abdomen/GI: Negative for abdominal pain, nausea, vomiting, and diarrhea, 17:35 Neuro: Positive for visual changes, Negative for altered mental status, dizziness, headache, weakness, 17:35 Endocrine: Positive for polydipsia, polyuria, 17:35 : Negative for hematuria, burning with urination, cp 17:35 All other systems are negative, cp Exam: 17:40 Constitutional: The patient appears in no acute distress, alert, awake, comfortable, cp non-diaphoretic, non-toxic, well developed, well nourished, 17:40 Head/Face: Normocephalic, atraumatic. cp 17:40 Eyes: Periorbital structures: appear normal, Conjunctiva: normal, no exudate, no injection, Sclera: no appreciated abnormality, Lids and lashes: appear normal, bilaterally, 17:40 ENT: External ear(s): are unremarkable, Nose: is normal, Mouth: Lips: moist, Oral mucosa: pink and intact, moist, Posterior pharynx: Airway: no evidence of obstruction, patent, 17:40 Neck: ROM/movement: is normal, is supple, without pain, no range of motions limitations, 17:40 Chest/axilla: Inspection: normal, 17:40 Cardiovascular: Rate: normal, Rhythm: regular, 17:40 Respiratory: the patient does not display signs of respiratory distress, Respirations: normal, no use of accessory muscles, no retractions, labored breathing, is not present, Breath sounds: are clear throughout, no decreased breath sounds, no stridor, no wheezing, 17:40 Abdomen/GI: Inspection: abdomen appears normal, Palpation: abdomen is soft and non-tender, in all quadrants, 17:40 Back: pain, is absent, ROM is normal, 17:40 Neuro: Orientation: to person, place \T\ time. Mentation: is normal, Motor: moves all fours, strength is normal, Gait: is steady, at a normal pace, without difficulty, Vital Signs: 17:23 BP 135 / 87; Pulse 92; Resp 16; Temp 98.1; Pulse Ox 98% on R/A; Weight 92.99 kg (R); cm10 Height 5 ft. 10 in. (R); Pain 0/10; 18:00 BP 116 / 74; Pulse 80; tm6 19:00 BP 129 / 71; Pulse 77; tm6 20:00 BP 137 / 80; Pulse 78; tm6 21:00 BP 160 / 92; Pulse 76; tm6 22:00 BP 158 / 103; Pulse 74; tm6 23:00 BP 142 / 94; Pulse 68; tm6 17:23 Body Mass Index 29.41 (92.99 kg, 177.8 cm) cm10 17:23 Pain Scale: Adult cm10 MDM: 17:27 Patient medically screened. cp 18:00 Differential diagnosis: DKA, hyperglycemia, hyperthyroidism, thyroid storm, sepsis. cp 22:12 Data reviewed: vital signs, nurses notes, lab test result(s), EKG, and as a result, I will discharge patient. 22:12 I considered the following discharge prescriptions or medication management in the emergency department Medications were administered in the Emergency Department. See MAR. Counseling: I had a detailed discussion with the patient and/or guardian regarding the historical points, exam findings, and any diagnostic results supporting the discharge/admit diagnosis, lab results, the need for outpatient follow up, for definitive care, a family practitioner, to return to the emergency department if symptoms worsen or persist or if there are any questions or concerns that arise at home. Response to treatment: the patient's symptoms have markedly improved after treatment, and as a result, I will discharge patient. 10/24 17:35 Order name: Glucose, Ancillary Testing; Complete Time: 17:45 EDMS 10/24 17:45 Order name: CBC with Diff; Complete Time: 18:54 cp 10/24 17:45 Order name: CMP; Complete Time: 18:54 cp 10/24 17:45 Order name: Lipase; Complete Time: 18:54 cp 10/24 17:45 Order name: Urinalysis w/ reflexes; Complete Time: 18:54 cp 10/24 19:43 Order name: Glucose, Ancillary Testing; Complete Time: 20:23 EDMS 10/24 20:23 Interpretation: Reviewed. 10/24 22:35 Order name: Glucose, Ancillary Testing EDGA 10/24 17:30 Order name: EKG; Complete Time: 17:31 cp 10/24 17:45 Order name: IV Saline Lock; Complete Time: 18:02 cp 10/24 17:45 Order name: Labs collected and sent; Complete Time: 18:02 cp 10/24 19:16 Order name: Accucheck Blood Glucose; Complete Time: 19:37 cp 10/24 22:12 Order name: Accucheck Blood Glucose; Complete Time: 22:25 cp Administered Medications: 18:06 Drug: NS 0.9% IV 1000 ml IV at 1 bolus Per protocol; 1000 mL bolus Route: IV; Rate: 1 ko1 bolus; Site: right antecubital; 20:29 Follow up: Response: No adverse reaction; IV Status: Completed infusion; IV Intake: jw7 1000ml 18:06 Drug: Ondansetron IVP 4 mg IVP once; over 2 minutes Route: IVP; Site: right antecubital;ko1 20:29 Follow up: Response: No adverse reaction jw7 18:06 Drug: Insulin Regular Human Sub-Q 10 units Sub-Q once {Co-Signature: aa5 (Blood, ko1 Claribel RN).} Route: Sub-Q; Site: left lower abdomen; 20:29 Follow up: Response: No adverse reaction; Marked relief of symptoms jw7 19:37 Drug: NS 0.9% IV 1000 ml IV at 1 bolus Per protocol; 1000 mL bolus Route: IV; Rate: 1 jw7 bolus; Site: right antecubital; 23:22 Follow up: Response: No adverse reaction; IV Status: Completed infusion; IV Intake: jw7 1000ml 20:45 Drug: Insulin Regular Human IVP 7 units IVP once {Co-Signature: tm6 (Greg Gilbert RN).} Route: IVP; Site: right antecubital; 23:22 Follow up: Response: No adverse reaction; Marked relief of symptoms jw7 Point of Care Testing: Blood Glucose: 17:27 Blood Glucose: 375 mg/dL; cm10 Ranges: Critical Glucose Levels:Adult <50 mg/dl or >400 mg/dl <40 mg/dl or >180 mg/dl Disposition Summary: 10/24/23 22:13 Discharge Ordered Notes: Location: Home cp Problem: an acute exacerbation cp Symptoms: have improved cp Condition: Stable cp Diagnosis - Diabetes mellitus due to underlying condition with hyperglycemia cp - Hypertensive heart and chronic kidney disease with heart failure and stage 1 cp through stage 4 chronic kidney disease, or unspecified chronic kidney disease Followup: cp - With: Private Physician - When: 2 - 3 days - Reason: Recheck today's complaints Discharge Instructions: - Discharge Summary Sheet cp - Hyperglycemia cp - Hypertension, Adult cp - Food Basics for Chronic Kidney Disease cp - Daily Diabetes Mellitus Record cp - Blood Glucose Monitoring, Adult cp - Diabetes Mellitus and Nutrition, Adult cp - Chronic Kidney Disease, Adult cp Forms: - Medication Reconciliation Form cp - Thank You Letter cp - Antibiotic Education cp - Prescription Opioid Use cp - Patient Portal Instructions cp - Leadership Thank You Letter cp Addendum: 10/27/2023 18:57 Co-signature as Attending Physician, Jean Marie Pisano MD I reviewed the patient's care r n provided by the Advanced Practice Provider and agree with the diagnosis and treatment plan. Signatures: Dispatcher [employer] Jean Marie Coffman MD MD rn Page, Corey, PA PA cp Farheen Mar RN RN jw7 Velma Brennan RN RN ko1 Katey Faulkner RN RN cm10 Claribel Blood RN aa5 Greg Gilbert RN tm6 Corrections: (The following items were deleted from the chart) 10/24 17:27 17:26 PMHx: Cancer - abdomen; cm10 cm10 17:47 17:30 The patient or guardian reports hyperglycemia, that was potentially precipitated cp by no particular event, cp 17:47 17:30 Onset: The symptoms/episode began/occurred yesterday, cp cp 23:24 17:45 BETA HYDROXYBUTYRATE+C.LAB.BRZ ordered. cp jw7 10/25 22:22 10/24 17:46 Associated signs and symptoms: Pertinent positives: polydipsia, polyuria, cp blurry vision, cp 10/25 22:22 22:21 Current symptoms: In the emergency department the patient's symptoms are cp unchanged from the initial presentation, despite home interventions, cp :10/24 17:35 Neuro: Negative for altered mental status, dizziness, headache, weakness, cpcp 10/25 22:24 10/24 17:35 All other systems are negative, cp cp
[2023-10-25 01:25] VITALS: BP 142/94; TEMP 98.1; O2SAT 98
--- NOTE | 2023-10-31 13:55 | EKG ---
Test Date: 2023-10-24 Test Time: 23:06:26 Power And Recovery Supervisor: LEYDA MEASUREMENT RESULTS: Intervals: Rate: 67 NH: 160 QRSD: 86 QT: 408 QTc: 431 [place]: P: 58 NH: 160 QRS: 30 T: -7 INTERPRETIVE STATEMENTS: Normal sinus rhythm Nonspecific T wave abnormality Abnormal ECG Compared to ECG 04/28/2023 11:09:41 T-wave abnormality now present Electronically Signed On 10-31-23 13:30:52 PAYROLL ACCOUNTING CLERK by Claudy Perez
== END ==
LOC: ER 17:09
DX: E11.65 Type 2 diabetes mellitus with hyperglycemia (principal); I10 Essential (primary) hypertension; I12.9 Hypertensive chronic kidney disease with stage 1 through stage 4 chronic kidney disease, or unspecified chronic kidney disease; E11.22 Type 2 diabetes mellitus with diabetic chronic kidney disease; N18.4 Chronic kidney disease, stage 4 (severe)
CPT/HCPCS: 96361; 93005; 85025; 81001; 36415; 82947 ×3; 83690; 80053; 96375; 96374; 99284; J1815 ×3; J2405; J7030

== ENCOUNTER 2024-02-02 08:17 | Emergency (ER) | payer BC ==
[2024-02-02] MEDS ORDERED: dexAMETHasone 10 MG/ML VIAL ONE (09:51)
[2024-02-02] MEDS ORDERED: FENTANYL CITR 100 MCG/2 ML ONE (09:51)
[2024-02-02] MEDS ORDERED: KETOROLAC 30 MG/ML INJ ONE (09:51)
[2024-02-02] MEDS ORDERED: ONDANSETRON 4 MG/2 ML VIAL ONE (09:51)
[2024-02-02] MEDS ORDERED: DIAZEPAM 5 MG TABLET ONE (09:52)
[2024-02-02 09:53] LABS: Absolute Eosinophils 0.2 K/uL (0-0.5); Absolute Lymphocytes (CBC) 1.6 K/uL (0.7-4.9); Absolute Monocytes 0.5 K/uL (0.1-1.3); Absolute Neutrophil 4.7 K/uL (1.8-8.0); Basophils % 0.4 % (0-1.3); Eosinophils % 2.3 % (0-4.4); Hematocrit 37.6 % (39.6-49.0); Hemoglobin 12.2 g/dL (13.6-17.9); Lymphocytes % 22.6 % (15.3-44.8); MCH 26.5 pg (27.0-35.0); MCHC 32.4 g/dL (32.0-36.0); MPV 9.7 fL (7.6-11.3); Monocytes % 7.3 % (3.3-12.3); Neutrophils % 67.4 % (41.7-73.7); Platelets 214 thou/uL (152-406); RBC Red Blood Cell Count 4.59 M/uL (4.33-5.43); Red Cell Distribution Width 14.9 % (12.1-15.2)
[2024-02-02 10:14] LABS: Albumin 3.7 g/dL (3.4-5.0); Albumin/Globulin Ratio 0.9 (1.1-1.8); Anion Gap 5.7 mEq/L (5.0-15.0); Bilirubin Total 0.4 mg/dL (0.2-1.0); Globulin 3.9 g/dL (2.3-3.5); Potassium 3.7 mEq/L (3.5-5.1); Protein, Total 7.6 g/dL (6.4-8.2); Troponin High Sensitivity 6.8 pg/mL (<58.9)
--- NOTE | 2024-02-02 10:19 | ER ---
Nurse's Notes [facility] Name: Valeriano Lawrence Age: 58 yrs Sex: Male : 1965 Arrival Date: 02/02/2024 Time: 08:17 Bed 6 Private MD: Diagnosis: Essential (primary) hypertension;Sebaceous cyst;Unspecified symptoms and signs involving the musculoskeletal system;Unspecified kidney failure;Spondylolysis, cervical region Presentation: 02/01 08:29 Chief complaint: Patient states: Lump to L shoulder area for years, but started to get ll1 tender about 2 weeks ago. No fever or drainage reported. Coronavirus screen: Client denies travel out of the [place] in the last 14 days. At this time, the client does not indicate any symptoms associated with coronavirus-19. Ebola Screen: Patient denies travel to an Ebola-affected area in the 21 days before illness onset. Initial Sepsis Screen: Does the patient meet any 2 criteria? No. Patient's initial sepsis screen is negative. Does the patient have a suspected source of infection? No. Patient's initial sepsis screen is negative. Risk Assessment: Do you want to hurt yourself or someone else? Patient reports no desire to harm self or others. Onset of symptoms was January 19, 2024. 08:29 Method Of Arrival: Ambulatory ll1 08:29 Acuity: MEGAN 3 ll1 Triage Assessment: 08:32 General: Appears uncomfortable, Behavior is calm, cooperative, appropriate for age. ll1 Pain: Complains of pain in L shoulder area Pain currently is 9 out of 10 on a pain scale. Quality of pain is described as aching, throbbing. Derm: Abscess located on Posterior L shoulder. Historical: - Allergies: 08:28 No Known Allergies; ll1 - PMHx: 08:28 Cancer - abdomen; Diabetes - NIDDM; Hypertension; ll1 - PSHx: 08:28 stomach tumor removed (Hypertension); ll1 - Immunization history:: Adult Immunizations up to date. - Infectious Disease History:: Denies. - Social history:: Smoking status: Patient reports use of chewing tobacco. Patient denies any tobacco usage or history of. Screenin:47 [facility] ED Fall Risk Assessment (Adult) History of falling in the last 3 months, ss including since admission No falls in past 3 months (0 pts). Abuse screen: Denies threats or abuse. Denies injuries from another. Nutritional screening: No deficits noted. Tuberculosis screening: Never had TB. Assessment: 08:55 General: Appears in no apparent distress. comfortable, Behavior is calm, cooperative, ss Denies fever, feeling ill, fatigue, chills. Pain: Complains of pain in posterior aspect of left shoulder Pain currently is 9 out of 10 on a pain scale. Quality of pain is described as tender, Pain began 2 years ago. but "flares up" at times. Began hurting worse yesterday. Radiates at times to anterior chest wall Is continuous. Neuro: Level of Consciousness is awake, alert, obeys commands, Oriented to person, place, time, situation. Cardiovascular: Capillary refill < 3 seconds is brisk in bilateral fingers. Respiratory: Airway is patent Respiratory effort is even, unlabored, Respiratory pattern is regular, symmetrical. GI: No signs and/or symptoms were reported involving the gastrointestinal system. Derm: Skin is intact, is healthy with good turgor, Skin is dry, Skin is pink, warm \\T\\ dry. normal. 09:45 Reassessment: XRAY at bedside. ss 09:47 Reassessment: To CT now VIA wheelchair. Vital Signs: 08:29 BP 185 / 103; Pulse 85; Resp 16; Temp 97.9; Pulse Ox 100% on R/A; Weight 92.99 kg; ll1 Height 5 ft. 10 in. ; Pain 9/10; 10:20 BP 150 / 84; Pulse 98; Resp 16; Pulse Ox 100% on R/A; Pain 9/10; ss 08:29 Body Mass Index 29.41 (92.99 kg, 177.8 cm) ll1 08:29 Pain Scale: Adult ll1 10:20 Pain Scale: Adult ss ED Course: 08:20 Patient arrived in ED. ra3 08:22 Arm band placed on Patient placed in an exam room, on a stretcher. ll1 08:32 Triage completed. ll1 08:32 Nestor Gonzalez MD is Attending Physician. [facility] 08:58 Toña Gonsalves, EFRA is Primary Nurse. ss 09:35 Patient has correct armband on for positive identification. Placed in gown. Bed in low ss position. Call light in reach. Side rails up X 1. 09:44 Missed attempt(s): 22 gauge in left antecubital area. Bleeding controlled, band aid ss applied, catheter tip intact. 09:46 Troponin High Sensitivity Sent. ss 09:46 Comprehensive Metabolic Panel Sent. ss 09:46 CBC with Diff Sent. ss 09:54 CT C Spine In Process Unspecified. EDMS 09:57 Shoulder Left (2 View) XRAY In Process Unspecified. EDMS 10:18 Solo Faulkner MD is Referral Physician. kurt 10:20 Nory Tamayo MD is Referral Physician. kurt 10:49 No provider procedures requiring assistance completed. Patient did not have IV access ss during this emergency room visit. Administered Medications: 08:35 CANCELLED (Duplicate Order): mupirocinointment 2 % 1 application Topical once kurt 08:36 CANCELLED (Duplicate Order): opezjpjnu-fysazmfyfxf-3%: (1:100,000) 5 ml 20 ml kurt Infiltration once; to bedside 08:36 CANCELLED (Duplicate Order): trimethoprim-sulfamethoxazole(160 mg-800 mg (ds) 1 tablet kurt PO once 08:36 CANCELLED (Duplicate Order): [id number] mg PO once kurt 10:15 Drug: Ondansetron IVP 4 mg IVP once; over 2 minutes Route: IVP; Site: left antecubital; ss 10:51 Follow up: Response: No adverse reaction ss 10:15 Drug: Decadron - Dexamethasone IVP 10 mg IVP once Route: IVP; Site: left antecubital; ss 10:51 Follow up: Response: Marked relief of symptoms ss 10:17 Drug: fentaNYL (PF) IVP 50 mcg IVP once Route: IVP; Site: left antecubital; ss 10:51 Follow up: Response: No adverse reaction; Marked relief of symptoms; RASS: Alert and ss Calm (0) 10:19 Drug: Diazepam PO 5 mg PO once Route: PO; ss 10:51 Follow up: Response: No adverse reaction; Marked relief of symptoms; RASS: Alert and ss Calm (0) 10:19 Drug: Ketorolac IVP 30 mg IVP once Route: IVP; Site: left antecubital; ss 10:51 Follow up: Response: No adverse reaction; Marked relief of symptoms ss Medication: 09:47 VIS not applicable for this client. ss Outcome: 10:18 Discharge ordered by . kurt 10:49 Discharged to home ambulatory, ss 10:49 Condition: good 10:49 Discharge instructions given to patient, family, Instructed on discharge instructions, follow up and referral plans. medication usage, Demonstrated understanding of instructions, follow-up care, medications, Prescriptions given X 3, 10:51 Patient left the ED. ss Signatures: Dispatcher [employer] EDAZ Nestor Gonzalez MD MD cha Blanchard, Shelby, RN RN ss Dipti Thakkar RN RN 1 Tracie Nash 3 Corrections: (The following items were deleted from the chart) 10:49 10:49 Discharge instructions given to patient, family, Instructed on discharge ss instructions, follow up and referral plans. medication usage, Demonstrated understanding of instructions, follow-up care, medications, Prescriptions given X 2, ss
--- NOTE | 2024-02-02 10:19 | EDPHYS ---
Physician Documentation [facility] Name: Valeriano Lawrence Age: 58 yrs Sex: Male : 1965 Arrival Date: 02/02/2024 Time: 08:17 Bed 6 Private MD: ED Physician Nestor Gonzalez HPI: 02/01 08:35 This 58 yrs old Black Male presents to ER via Ambulatory with complaints of Shoulder kurt Pain - with lump. Historical: - Allergies: 08:28 No Known Allergies; ll1 - PMHx: 08:28 Cancer - abdomen; Diabetes - NIDDM; Hypertension; ll1 - PSHx: 08:28 stomach tumor removed (Hypertension); ll1 - Immunization history:: Adult Immunizations up to date. - Infectious Disease History:: Denies. - Social history:: Smoking status: Patient reports use of chewing tobacco. Patient denies any tobacco usage or history of. ROS: 09:20 Constitutional: Negative for fever, chills, and weight loss, Eyes: Negative for injury, kurt pain, redness, and discharge, ENT: Negative for injury, pain, and discharge, Neck: Negative for injury, pain, and swelling, Cardiovascular: Negative for chest pain, palpitations, and edema, Respiratory: Negative for shortness of breath, cough, wheezing, and pleuritic chest pain, Abdomen/GI: Negative for abdominal pain, nausea, vomiting, diarrhea, and constipation, Back: Negative for injury and pain, : Negative for injury, bleeding, discharge, and swelling, Skin: Negative for injury, rash, and discoloration, Neuro: Negative for headache, weakness, numbness, tingling, and seizure, Psych: Negative for depression, anxiety, suicide ideation, homicidal ideation, and hallucinations, Allergy/Immunology: Negative for hives, rash, and allergies, Endocrine: Negative for neck swelling, polydipsia, polyuria, polyphagia, and marked weight changes, Hematologic/Lymphatic: Negative for swollen nodes, abnormal bleeding, and unusual bruising, 09:20 MS/extremity: Positive for decreased range of motion, pain, of the anterior aspect of left shoulder and posterior aspect of left shoulder, Exam: 09:20 Constitutional: This is a well developed, well nourished patient who is awake, alert, kurt and in no acute distress. Head/Face: Normocephalic, atraumatic. Eyes: Pupils equal round and reactive to light, extra-ocular motions intact. Lids and lashes normal. Conjunctiva and sclera are non-icteric and not injected. Cornea within normal limits. Periorbital areas with no swelling, redness, or edema. ENT: Nares patent. No nasal discharge, no septal abnormalities noted. Tympanic membranes are normal and external auditory canals are clear. Oropharynx with no redness, swelling, or masses, exudates, or evidence of obstruction, uvula midline. Mucous membranes moist. Neck: Trachea midline, no thyromegaly or masses palpated, and no cervical lymphadenopathy. Supple, full range of motion without nuchal rigidity, or vertebral point tenderness. No Meningismus. Chest/axilla: Normal chest wall appearance and motion. Nontender with no deformity. No lesions are appreciated. Cardiovascular: Regular rate and rhythm with a normal S1 and S2. No gallops, murmurs, or rubs. Normal PMI, no JVD. No pulse deficits. Respiratory: Lungs have equal breath sounds bilaterally, clear to auscultation and percussion. No rales, rhonchi or wheezes noted. No increased work of breathing, no retractions or nasal flaring. Abdomen/GI: Soft, non-tender, with normal bowel sounds. No distension or tympany. No guarding or rebound. No evidence of tenderness throughout. Back: No spinal tenderness. No costovertebral tenderness. Full range of motion. Male : Normal genitalia with no discharge or lesions. Skin: Warm, dry with normal turgor. Normal color with no rashes, no lesions, and no evidence of cellulitis. Neuro: Awake and alert, GCS 15, oriented to person, place, time, and situation. Cranial nerves II-XII grossly intact. Motor strength 5/5 in all extremities. Sensory grossly intact. Cerebellar exam normal. Normal gait. Psych: Awake, alert, with orientation to person, place and time. Behavior, mood, and affect are within normal limits. 09:20 Musculoskeletal/extremity: Extremities: grossly normal except: noted in the anterior aspect of left shoulder and posterior aspect of left shoulder: decreased ROM, pain, 10:08 ECG was reviewed by the Attending Physician. [facility] Vital Signs: 08:29 BP 185 / 103; Pulse 85; Resp 16; Temp 97.9; Pulse Ox 100% on R/A; Weight 92.99 kg; ll1 Height 5 ft. 10 in. ; Pain 9/10; 10:20 BP 150 / 84; Pulse 98; Resp 16; Pulse Ox 100% on R/A; Pain 9/10; ss 08:29 Body Mass Index 29.41 (92.99 kg, 177.8 cm) ll1 08:29 Pain Scale: Adult ll1 10:20 Pain Scale: Adult ss MDM: 08:32 Patient medically screened. [facility] 09:21 Data reviewed: vital signs, nurses notes, lab test result(s), EKG, radiologic studies. [facility] Consideration of Admission/Observation Escalation of care including admission/observation considered. I considered the following discharge prescriptions or medication management in the emergency department Medications were administered in the Emergency Department. See MAR. Test considered but Not performed: MRI: no cervical mri. 02/01 09:20 Order name: CBC with Diff; Complete Time: 10:10 [facility] 02/01 09:20 Order name: Comprehensive Metabolic Panel; Complete Time: 10:18 [facility] 02/01 09:20 Order name: Troponin High Sensitivity; Complete Time: 10:18 [facility] 02/01 09:20 Order name: Shoulder Left (2 View) XRAY [facility] 02/01 09:20 Order name: CT C Spine [facility] 02/01 09:20 Order name: EKG; Complete Time: 09:20 [facility] 02/01 09:20 Order name: EKG - Nurse/Tech; Complete Time: 10:20 [facility] EC:08 Rate is 77 beats/min. Rhythm is regular. QRS Woody is Normal. CT interval is normal. QRS kurt interval is normal. QT interval is normal. No Q waves. T waves are Normal. No ST changes noted. Clinical impression: Normal ECG and No evidence of ischemia. Interpreted by me. Reviewed by me. Administered Medications: 08:35 CANCELLED (Duplicate Order): mupirocinointment 2 % 1 application Topical once kurt 08:36 CANCELLED (Duplicate Order): lwxtwmidr-ayakdzubpii-4%: (1:100,000) 5 ml 20 ml kurt Infiltration once; to bedside 08:36 CANCELLED (Duplicate Order): trimethoprim-sulfamethoxazole(160 mg-800 mg (ds) 1 tablet kurt PO once 08:36 CANCELLED (Duplicate Order): [id number] mg PO once kurt 10:15 Drug: Ondansetron IVP 4 mg IVP once; over 2 minutes Route: IVP; Site: left antecubital; ss 10:51 Follow up: Response: No adverse reaction ss 10:15 Drug: Decadron - Dexamethasone IVP 10 mg IVP once Route: IVP; Site: left antecubital; ss 10:51 Follow up: Response: Marked relief of symptoms ss 10:17 Drug: fentaNYL (PF) IVP 50 mcg IVP once Route: IVP; Site: left antecubital; ss 10:51 Follow up: Response: No adverse reaction; Marked relief of symptoms; RASS: Alert and ss Calm (0) 10:19 Drug: Diazepam PO 5 mg PO once Route: PO; ss 10:51 Follow up: Response: No adverse reaction; Marked relief of symptoms; RASS: Alert and ss Calm (0) 10:19 Drug: Ketorolac IVP 30 mg IVP once Route: IVP; Site: left antecubital; ss 10:51 Follow up: Response: No adverse reaction; Marked relief of symptoms ss Disposition Summary: 02/02/24 10:18 Discharge Ordered Notes: Location: Home kurt Problem: new kurt Symptoms: have improved kurt Condition: Stable kurt Diagnosis - Essential (primary) hypertension kurt - Sebaceous cyst kurt - Unspecified symptoms and signs involving the musculoskeletal system kurt - Unspecified kidney failure kurt - Spondylolysis, cervical region kurt Followup: kurt - With: Private Physician - When: 2 - 3 days - Reason: Recheck today's complaints, Continuance of care, Re-evaluation by your physician Followup: kurt - With: Solo Faulkner MD - When: 2 - 3 days - Reason: Recheck today's complaints, Re-evaluation by your physician Followup: kurt - With: Nory Tamayo MD - When: 2 - 3 days - Reason: Recheck today's complaints, Re-evaluation by your physician Discharge Instructions: - Discharge Summary Sheet kurt - Hypertension, Adult kurt - Musculoskeletal Pain kurt - Hypertension, Adult, [id number] kurt - How to Take Your Blood Pressure, [id number] kurt - Chronic Kidney Disease, Adult, [id number] kurt - Chronic Kidney Disease, Adult kurt - Managing Your Hypertension kurt - Spondylolysis kurt Forms: - Medication Reconciliation Form kurt - Antibiotic Education kurt - Prescription Opioid Use kurt - Patient Portal Instructions kurt - Leadership Thank You Letter kurt Prescriptions: - dexamethasone 4 mg Oral tablet - take 1 tablet ORAL route daily; 5 tablet; Refills: 0, Product Selection [facility] Permitted - diclofenac sodium 25 mg Oral tablet, delayed release (enteric coated) - take 1 tablet ORAL route 2 times per day; 14 tablet; Refills: 0, Product [facility] Selection Permitted - Cyclobenzaprine 5 mg Oral Tablet - take 1 tablet ORAL route 3 times per day As needed; 15 tablet; Refills: 0, [facility] Product Selection Permitted Signatures: Dispatcher [employer] EDNestor Valenzuela MD MD cha Blanchard, Shelby RN RN ss Dipti Thakkar RN RN ll1 Corrections: (The following items were deleted from the chart) 08:35 08:35 Mupirocin Topical Ointment 2 % 1 application Topical once ordered. [facility] 08:36 08:35 Lidocaine-Epinephrine Infiltration -1%: (1:100,000) 5 ml 20 ml Infiltration once; [facility] to bedside ordered. [facility] 08:36 08:35 Dressing - Wound ordered. [facility] 08:36 08:35 Sterile Gloves ordered. [facility] 08:36 08:35 Setup Suture Tray ordered. [facility] 08:36 08:35 Trimethoprim-Sulfamethoxazole PO (160 mg-800 mg (DS) 1 tablet PO once ordered. [facility] 08:36 08:35 Doxycycline PO 200 mg PO once ordered. [facility] 09:20 09:20 CBC+H.LAB.BRZ ordered. EDMS EDMS 09:20 09:20 COMPREHENSIVE METABOLIC PANEL+C.LAB.BRZ ordered. EDMS EDMS 09:20 09:20 Troponin High Sensitivity+C.LAB.BRZ ordered. EDMS EDMS
--- NOTE | 2024-02-02 10:27 | RAD REPORT ---
EXAM DESCRIPTION: CT - C Spine Wo Con - 02/02/2024 9:53 am CLINICAL HISTORY: Neck pain. Neck mass COMPARISON: None TECHNIQUE: Computed axial tomography of the cervical spine were obtained with sagittal and coronal r econstruction images generated and reviewed. All CT scans are performed using dose optimization technique as appropriate and may include automated exposure control or mA/KV adjustment according to patient size. FINDINGS: A cervical fracture is not seen. No dislocation. Spondylosis distal cervical spine most marked at C6-7 in which there is moderate left foraminal steno sis The patient has a palpable area posterolateral lower left neck. This area was marked. Mild thickening of the adjacent musculature when compared to the right neck IMPRESSION: A cervical fracture is not seen. Spondylosis C6-7 results in moderate left foraminal stenosis. Mild thickening of the musculature posterolateral lower left neck when compared to the right. This ar ea is palpable. This could be a normal finding for the patient. A myositis can also have this appeara nce. If clinically indicated further evaluation with MRI could be obtained
--- NOTE | 2024-02-02 10:27 | RAD REPORT ---
EXAM DESCRIPTION: RAD - Shoulder Left 2 View - 02/02/2024 9:56 am CLINICAL HISTORY: Left shoulder pain FINDINGS: No fracture or dislocation is seen. No significant bone abnormality
[2024-02-02 11:20] VITALS: BP 150/84; TEMP 97.9; O2SAT 100
--- NOTE | 2024-02-03 14:41 | EKG ---
Test Date: 2024-02-02 Test Time: 10:06:56 [employer] Teacher: LESLIE MEASUREMENT RESULTS: Intervals: Rate: 77 NM: 164 QRSD: 70 QT: 386 QTc: 436 Lamar: P: 42 NM: 164 QRS: 26 T: 25 INTERPRETIVE STATEMENTS: Normal sinus rhythm Normal ECG Compared to ECG 10/24/2023 23:06:26 T-wave abnormality no longer present Electronically Signed On 02-03-24 14:38:06 CDT by Claudy Perez
== END 2024-02-02 10:51 | disposition home or self-care (01) ==
LOC: ER 08:17
DX: L72.3 Sebaceous cyst (principal); R29.91 Unspecified symptoms and signs involving the musculoskeletal system; M43.02 Spondylolysis, cervical region; I10 Essential (primary) hypertension; N19 Unspecified kidney failure; E11.9 Type 2 diabetes mellitus without complications; Z85.028 Personal history of other malignant neoplasm of stomach
CPT/HCPCS: 93005; 85025; 36415; 84484; 80053; 72125; 73030; 96375; 96374; 99284; J3010; J1100; J2405